=== PATIENT | male | born 1995 | race Caucasian/White ===

== ENCOUNTER 2024-08-15 09:15 | Emergency (ER) | payer OTHER, SELFPAY ==
[2024-08-15 09:15] VITALS: BP 139/86; PULSE 95; RESP 16; TEMP 36.7; O2SAT 100; BMI 25.9
--- NOTE | 2024-08-15 09:43 | EX.ED.VIS.EY ---
HPI History of Present Illness Chief Complaint: Eye Problem Informant: patient Onset/Context/Timing Location: Bilateral Eyes Onset: Today Context: Sudden Onset Timing: Continuous Current Severity: Mild Maximum Severity: Mild Associated Symptoms Associated Symptoms - Eyes: Burning History of injury: Yes and Chemical exposure Visual correction: Glasses and Corrective contact lenses Narrative Narrative: 29-year-old male no stated past medical history. No prior eye surgery. He wears contact lenses and glasses. Today he got cleaning chemicals in his eyes. This occurred about 2 hours ago. He washed them out well and immediately took out his contacts. Says he can see fine there are just injected in some discomfort. No prior eye surgery or history Prior similar symptoms: No Recent Illness/Hospitalization: No PFSH PFSH Medical History no medical history no medical history Home Medications ?Medication ?Instructions ?Recorded ?Last Taken ?Type No Known/Unobtainable [No Known 05/16/14 Unknown History Home Medications] Allergy/AdvReac Type Severity Reaction Status Date / Time No Known Allergies Allergy Verified 08/15/24 09:17 Family History no significant family his Surgical History no surgical history no surgical history Social History Smoking Status: Never smoker ROS ROS ED ROS Narrative Denies recent illness. Constitutional Constitutional ED: Denies fever(s) Eyes Eyes: Denies blurry vision, change in vision or diplopia ENT ENT ED: Denies ear pain Cardiovascular Cardiovascular: Denies chest pain Respiratory/Chest Respiratory/Chest: Denies cough or dyspnea Gastrointestinal Gastrointestinal: Denies abdominal pain Genitourinary Genitourinary ED: Denies dysuria or hematuria Musculoskeletal Musculoskeletal: Denies arthralgias Integumentary Denies abscess Neurologic Neurologic: Denies headache(s) Psychiatric Psychiatric: Denies anxiety Endocrine Endocrinology: Denies polydipsia Hematologic/Lymphatic Hematologic/Lymphatic: Denies easy bleeding Allergic/Immunologic Allergic/Immunologic ED: Denies mouth swelling or tongue swelling EXAM Physical Exam Narrative Exam Narrative: 29-year-old male no acute distress sitting upright in bed. Vital signs stable afebrile. H EENT exam pupils round reactive light. Eyes are watering bilaterally. Injected and red. No discharge. Patient are motions are intact. No facial trauma. Lungs clear. Heart regular rhythm. Abdomen soft. Otherwise exam unremarkable. Const Vital Signs: 08/15/24 09:15 Temperature 98.1 F Temperature Source Temporal Pulse Rate 95 Respiratory Rate 16 Blood Pressure 139/86 H Blood Pressure Mean 103 Pulse Ox 100 Oxygen Delivery Method Room Air Positive well nourished and well developed; Negative for obese, cachectic, contractures or unkempt General Appearance ED: well developed and NAD; Negative for unkempt, cachectic or contractures Nutritional Appearance: Negative for cachectic or obese HEENT atraumatic; Negative for trauma or tenderness Neck no lymphadenopathy, supple and no JVD Resp normal respiratory effort, no retractions, no use of accessory muscles and clear to auscultation bilaterally Cardio regular rate, regular rhythm, S1 normal heart sound, S2 normal heart sound and no murmurs GI non-tender, non-distended and no masses Palpation: soft Extremity normal to inspection Neuro oriented x3, CN's II-XII intact bilaterally and moves all extremities Sensorium / Orientation: alert, oriented to person, oriented to place and oriented to time Motor Exam: strength 5/5 throughout Psych Appearance: Negative for unkempt Mood & Affect: Negative for depressed, anxious or tearful Skin no wounds Lesions: no lesions Rashes: no rashes MDM MDM MDM Narrative Medical decision making narrative: 29-year-old male with chemical exposure both eyes that he rinsed out already. Eyes will be irrigated. Will be discharged home with ophthalmology follow-up. History & Record Review Discussion w/independent historian: Patient Discharge Plan Triage Chief Complaint: Eye Problem ED Provider: Roque Gonzales Dx/Rx/DC Orders Clinical Impression: Acute chemical conjunctivitis of both eyes Instructions: ED Eye Exposure, Chemical Prescriptions: No Action No Known Home Medications Primary Care Provider: Jesus Melchor Referrals: Dennis Cano MD [Med Staff - Active Staff] - As Needed Jesus Melchor MD [Primary Care Provider] - Activity Restrictions/Additional Instructions: Rinse your eyes out again later today with water. Do not rub your eyes. Do not wear your contacts for today or tomorrow. Follow-up with eye doctor as needed. Print Language: [place]ese Disposition Disposition: Home, Self Care
== END 2024-08-15 10:52 | disposition home or self-care (01) ==
LOC: ED 10:04
PROVIDERS: Emergency Provider Emergency Medicine; Visit Provider Emergency Medicine
DX: H10.213 Acute toxic conjunctivitis, bilateral (principal); Z77.098 Contact with and (suspected) exposure to other hazardous, chiefly nonmedicinal, chemicals
CPT/HCPCS: 99283

== ENCOUNTER 2025-01-25 21:09 | Emergency (ER) | payer OTHER, SELFPAY ==
[2025-01-25 21:10] VITALS: BP 121/79; PULSE 107; RESP 17; TEMP 36.1; O2SAT 100; BMI 29.0
--- NOTE | 2025-01-25 21:20 | RAD_ITS ---
PROCEDURE: KNEE 4 OR MORE VIEWS 01/25/2025 REASON FOR EXAM: PAIN TECHNIQUE: 4 views of the left knee COMPARISON: None FINDINGS: Bones: No fracture. No suspicious bone lesion. Joints: Normal alignment. Mild degenerative changes. Effusion: No effusion. Soft tissues: Soft tissues are unremarkable. Other: RAD/Knee 4 or More Views IMPRESSION: NO EFFUSION ACUTE FRACTURE OR DISLOCATION. Reading Location: [facility]
--- NOTE | 2025-01-25 22:11 | EDS_ITS ---
HPI History of Present Illness Chief Complaint: Lower Extremity Injury Narrative Narrative: 30-year-old male who denies significant past medical history presents with injury to his left knee that he sustained a few hours ago. He states he was playing basketball, collided with another player, and fell. He fell with his left knee/lower leg behind him and the weight of his body put strain on his knee joint. May have twisted some. He was able to stand afterwards and states that it felt okay, but then he started having more pain diffusely then behind the lateral aspect of his left knee. He denies hitting his head or loss of consciousness. No other injury. PFSH PFSH Home Medications ?Medication ?Instructions ?Recorded ?Last Taken ?Type No Known/Unobtainable [No Known 4 Unknown History Home Medications] Allergy/AdvReac Type Severity Reaction Status Date / Time No Known Allergies Allergy Verified 01/25/25 21:10 Social History Smoking Status: Never smoker ROS ROS ED ROS Narrative Review of systems, focused, positive for diffuse left knee pain and pain in the left posterior knee worse with movement and palpation. Left knee feels somewhat stiff and subjectively swollen. EXAM Physical Exam Narrative Exam Narrative: GCS 15. ABCs intact. Focused examination of the left knee shows that he can lift his leg straight off the bed without difficulty. He is neurovascular tact distally. Flexion extension of the left knee intact. There is mild tenderness to palpation along the left lateral biceps tendon/muscle. No crepitance. Const Vital Signs: 01/25/25 21:10 Temperature 97 F L Temperature Source Temporal Pulse Rate 107 H Respiratory Rate 17 Blood Pressure 121/79 H Blood Pressure Mean 93 Pulse Ox 100 Oxygen Delivery Method Room Air MDM MDM MDM Narrative Medical decision making narrative: Differential diagnosis includes but not limited to left knee sprain versus strain versus hamstring/tendon injury versus fracture versus internal derangement. Patient does not have any tenderness along the meniscal lines. There is no instability of the knee noted on examination. X-rays were obtained per protocol and interpreted by myself independently of the left knee. There is no effusion or fracture. No evidence of dislocation. I reviewed the radiology report which confirms my independent interpretation as well. At this point in time, I do feel he probably has more of a hamstring strain. He will be placed in an Grabiel wrap. He declined any oral analgesics here in the emergency department. He was given an ice pack for comfort. At this point in time, he was referred to orthopedics to follow-up with in 1 week if not improving. Return instructions to the emergency department were reviewed. Disposition is discharged home in stable condition. Radiography Diagnostic Testing: Clinical Impression(s) from Imaging Studies Knee X-Ray 01/25/25 21:20 IMPRESSION: NO EFFUSION ACUTE FRACTURE OR DISLOCATION. Reading Location: [facility] Discharge Plan Triage Chief Complaint: Lower Extremity Injury ED Provider: Arnel De León Dx/Rx/DC Orders Clinical Impression: Injury of knee, left, Left hamstring muscle strain Instructions: Knee Pain, ED Bandage Elastic Wrap, ED Knee Sprain Prescriptions: No Action No Known Home Medications Primary Care Provider: Care Physician,No Primary Referrals: Indra Mooney MD [Med Staff - Active Staff] - 1 Week if not improving Care Physician,No Primary [Primary Care Provider] - Activity Restrictions/Additional Instructions: Use Grabiel wrap for support. Continue ice and elevation at home. Take Tylenol or ibuprofen as needed for pain. Follow-up with orthopedics in 1 week if not improving. Return with increased pain, new or worsening symptoms. Print Language: [place] Disposition Disposition: Home, Self Care
== END 2025-01-25 22:37 | disposition home or self-care (01) ==
PROVIDERS: Emergency Provider Emergency Medicine; Visit Provider Emergency Medicine
DX: S76.312A Strain of muscle, fascia and tendon of the posterior muscle group at thigh level, left thigh, initial encounter (principal); Y93.67 Activity, basketball; Y92.89 Other specified places as the place of occurrence of the external cause; W03.XXXA Other fall on same level due to collision with another person, initial encounter
CPT/HCPCS: 73564; 99283

== ENCOUNTER → 2025-03-17 | Outpatient (CLI) | payer OTHER, SELFPAY ==
--- OUTSIDE RECORDS SUMMARY | 2025-03-17 08:42 | XMS RPT_ITS | CCD ---
Author Organization [facility] Care Team Providers Care Contour Stitcher Name Role Phone SEAN SWAN Unavailable Unavailable SEAN SWAN Unavailable Unavailable Unavailable Primary Care Provider Unavailabl e Unavailable Primary Care Provider Unavailabl e Care Physician, No Primary Primary Care Provider Unavailable Arnel De León MD Emergency Provider Arnel De León Attending Unavailable Care Physician, No Primary Primary Care Unava ilable Roque Gonzales Attending Unavailable Care Physician, No Primary Primary Care Unava ilable Indra Mooney Attending Unavailable Care Physician, No Primary Primary Care Unava ilable Care Physician, No Primary Referring Unava ilable YAJAIRA ARNDT Attending Unavailable DINA ROLLINS Attending Unavailable THIAGO LANGE Referring Unavailable DINA ROLLINS Referring Unavailable Medications Current Medications Medication Drug Class(es) Dates Sig (Normalized) Sig (Original) doxycycline monohydrate 100 mg oral capsule (2 sources) Tetracycline-cla ss Drug Start: 06-08-2024 End: 06-15-2024 take 1 capsule by mouth twice daily doxycycline monohydrate (MONODOX) 100 mg capsule Take 1 capsule by mouth two times a day for 7 days. 14 capsule 06/08/2024 06/15/2024 Active Multivitamin preparation (8 sources) take 1 tablet by mouth once daily MULTIVITAMIN (DAILY VITAMIN ORAL) Take 1 tablet by mouth once daily. Active take 1 tablet by mouth once juancarlos y MULTIVITAMIN (DAILY VITAMIN ORAL) Take 1 tablet by mouth once daily. 0 Active Comment on above: Take 1 tablet by tyree once daily. nystatin 100 unt/mg topical powder (3 sources) Polyene Antifungal Start: 08-14-2024 nystatin (NYSTOP) powder Indications: Scrotal irritation Apply to groin daily as needed. 15 g 08/14/2024 Active Completed/Discontinued Medications Medication Drug Class(es) Dates Sig (Normalized) Sig (Original) brompheniramine maleate 0.4 mg/ml / dextromethorphan hydrobromide 2 mg/ml / pseudoephedrine hydrochloride 6 mg/ml oral solution (2 sources) alpha-Adrenergic Agonist, Uncompetitive I-wcxelv-U-aspartat e Receptor Antagonist, Sigma-1 Agonist Start: 11-19-2018 End: 06-07-2024 take 10 mL by mouth every six hours as needed Brompheniramine-P seudoeph-DM (BROMFED DM) 2-30-10 mg/5 mL syrup Take 10 mL by mouth four times daily as needed. 200 mL 11/19/2018 06/07/2024 Discontinued Comment on above: Take 10 mL by mouth four times daily as needed. omeprazole 40 mg delayed release oral capsule (10 sources) Proton Pump Inhibitor Start: 08-26-2017 End: 06-07-2024 take 1 capsule by mouth once daily Omeprazole 40 mg capsule Indications: Epigastric pain Take 1 capsule by mouth once daily. On empty stomach 30 capsule 2 08/26/2017 06/07/2024 Discontinued take 1 capsule by mouth once edmar ly omeprazole (PRILOSEC) 20 mg capsule Take 20 mg by mouth once daily. Active Comment on above: Take 20 mg by mouth once daily. Take 1 capsule by mo ut once daily. On empty stomach Problems Active Problems Problem Classification Problem Date Documented Da te Episodic/Chronic Abdominal pain (1 source) Epigastric pain; Translations: [Epigastric pain] Onset: 10-18-2018 Episodic Other connective tissue disease (1 source) Myalgia of pelvic floor; Translations: [Myalgia, other site] 08-14-2024 Episodic Other infections; including parasitic (2 sources) History of chlamydial infection; Translations: [Personal history of other infectious and parasitic diseases] 06-25-2024 Episodic Other injuries and conditions due to external causes (1 source) Injury of left knee; Translations: [Unspecified injury of left lower leg, initial encounter] 01-25-2025 Episodic Other injuries and conditions due to external causes (1 source) Unspecified injury of left lower leg, initial encounter; Translations: [Unspecified injury of left lower leg, initial encounter] Onset: 01-29-2025 Episodic Other male genital disorders (2 sources) Irritation of penis; Translations: [Other specified disorders of penis] 06-25-2024 Chronic Other male genital disorders (1 source) Other specified disorders of penis; Translations: [Penile irritation] Onset: 08-14-2024 Chronic Other male genital disorders (1 source) Disorder of male genital organ; Translations: [Other specified disorders of the male genital organs] 08-14-2024 Episodic Other upper respiratory infections (1 source) Sore throat symptom; Translations: [Acute pharyngitis, unspecified] Episodic Residual codes; unclassified (1 source) Procedure not done; Translations: [Procedure and treatment not carried out, unspecified reason] 08-15-2024 Episodic Spondylosis; intervertebral disc disorders; other back problems (1 source) Acute low back pain; Translations: [Acute midline low back pain without sciatica] 06-07-2024 Episodic Sprains and strains (2 sources) Strain of muscle, fascia and tendon of the posterior muscle group at thigh level, left thigh, initial encounter; Translations: [Strain of left hamstring muscle] Onset: 01-30-2025 01-25-2025 Episodic Viral infection (1 source) Zoster without complications; Translations: [Herpes zoster without complication] Onset: 02-28-2025 Episodic Past or Other Problems Problem Classification Problem Date Documented Date Episodic/Chronic Genitourinary symptoms and ill-defined conditions (5 sources) Dysuria; Translations: [Painful micturition, unspecified] Onset: 08-14-2024 06-07-2024 Episodic Inflammation; infection of eye (except that caused by tuberculosis or sexually transmitteddisease) (2 sources) Acute conjunctivitis of bilateral eyes caused by chemical substance; Translations: [Acute toxic conjunctivitis, bilateral] Onset: 09-06-2024 08-23-2024 Episodic Other infections; including parasitic (1 source) Personal history of other infectious and parasitic diseases; Translations: [H/O chlamydia infection] Onset: 08-14-2024 Episodic Results Test Name Value Interpretation Reference Range Suzi Gar 02-28-2025 CNOV Office Visit ([facility]ALK[facility] ) BRANDON JAMIL ([id number]) 1995 M Date Time Provider Department 02/28/25 8:30 AM YAJAIRA ARNDT During your visit today, we recorded the following information about you: Temperature Pulse Respiration Blood pressure 97.9 degrees 77/minute 16/minute 120/67 Yajaira Arndt PA-C 02/28/2025 9:11 AM [facility] WALK IN CLINIC SUBJECTIVE: I have reviewed and revised, as needed, all rooming documentation from today. Brandon Jamil is a 30 year old male who presents to the office today with chief complaint of rash to right upper thigh beginning 3 days ago. Patient states prior to onset of rash had some tingling sensations to the skin beginning approximately 5 days ago. Rash is raised and blistering. No fever. Had chickepox as a child Positive for: itching, redness, spreading, and pain Negative for: drainage No SOB. No tongue swelling. No trouble handling secretions. There are no exam notes on file for this visit. Allergies: ALLERGIES No Known Allergies Current Outpatient Medications Medication Sig nystatin (NYSTOP) powder Apply to groin daily as needed. omeprazole (PRILOSEC) 20 mg capsule Take 20 mg by mouth once daily. MULTIVITAMIN (DAILY VITAMIN ORAL) Take 1 tablet by mouth once daily. No current facility-administered medications for this visit. PAST MEDICAL HISTORY Diagnosis Date NEGATIVE MEDICAL HISTORY PAST SURGICAL HISTORY Procedure Laterality Date CIRCUMCISION ESOPHAGOGASTRODUODENO SCOPY TRANSORAL DIAGNOSTIC 10/18/2018 EGD Social History Tobacco Use Smoking status: Never Smokeless tobacco: Never Tobacco comments: dad outside Substance Use Topics Alcohol use: No Comment: rarely Drug use: No Immunization History Administered Date(s) Administered Haemophilus influenzae b (Hib) vaccine, unspecified formulation [birth year] 1997 chicken pox (disease) 1997 diphtheria tetanus pertussis (DTaP) vaccine, pediatric (INFANRIX) 1997 1995 1997 04/11/1998 02/16/2002 hepatitis B (HepB) vaccine, 3-dose series, age 0 yr - 19 yr (ENGERIX B-PEDS, RECOMBIVAX HB-PEDS) 1997 1997 1997 measles mumps rubella (MMR) vaccine (M-M-R II, PRIORIX) 04/11/1998 02/16/2002 poliovirus (IPV) vaccine, inactivated (IPOL) 1997 1997 04/11/1998 02/16/2002 REVIEW OF SYSTEMS: See HPI otherwise, all other reviewed and negative other than HPI. PHYSICAL EXAMINATION: BP 120/67 Pulse 77 Temp 97.9 Resp 16 SpO2 98% General appearance: Well appearing, alert, in no acute distress, well-hydrated, well nourished. Skin: Skin: vesicles on an erythematous base clustered on right upper thigh in a dermatomal distribution Lungs: Unlabored on room air ASSESSMENT/PLAN: 1. Herpes zoster without complication - ICD9: 053.9, ICD10: B02.9 Valtrex prescribed Discussed contagiousness and precautions with contact around immunocompromised people, elderly, young children or females May use Motrin if needed for pain control No evidence of secondary infection or disseminated zoster Advised to return for any new or worsening symptoms Yajaira Arndt PA-C This note was partially generated using [employer] voice recognition system, any errors noted are unintentional and are due to this technology. Patient declines printed AVS. Prefers to look at AVS in [place]. History and Record Review External record(s) reviewed: prior outpatient record and prior labs/imaging. Findings from review of prior labs/imaging: Previous Renal Function Panel Reviewed No results within last 365 days. Differential Diagnoses - Shingles is more likely for the following reason(s): suggested by HANDP Disposition The patient was discharged. OTC Medications were advised: Procedures Yajaira Arndt PA-C 02/28/2025 9:10 AM Signed Shingles You have been diagnosed with shingles. Shingles is also called varicella zoster. This happens from the chicken pox virus. About 1 out of 5 of people who had chicken pox as children get shingles. The chicken pox virus can live quietly for many years in the nerves of the body. Sometimes, something will ?wake up? the virus and cause shingles. This happens in people who are healthy. However, sometimes other illnesses, stress or infections can lead to a case of shingles. Older adults or others at high risk for getting shingles should consider getting the shingles vaccine. This vaccine helps to boost the immune system and prevent the chicken pox virus from ?reawakening.? The vaccine, Zostavax? is recommended by the Centers for Disease Control and Prevention (CDC) for people over the age of 60. Even if you have had shingles before, the vaccine is helpful in preventing another outbreak. Go to the CDC website for more information. www.cdc.gov/vaccines Symptoms of shingl (more content not included)... Normal [facility] Orthopedic Visit Reporton Orthopedic Visit Report [facility] [address] [place] [address] OFFICE VISIT Date of Service: 01/29/25 MR#: [id number] Acct: [id number] Name: BRANDON JAMIL Rep #: [id number] : 1995 Provider: Dr. Indra baker MD Age/Sex: 30/M [place] [facility] Status: Signed Intake Vital Signs 01/25/25 21:10 01/29/25 13:05 Height 5 ft 9 in 5 ft 9 in Weight: 199 lb 8 oz BMI 29.5 Intake Visit Reasons: LEFT KNEE Chief Complaint: Left Knee Pain Accompanied by: Self Is patient in pain?: Yes Pain scale (1-10): 4 Allergies No Known Allergies Allergy (Verified 01/29/25 13:06) Medications ???Medication ???Instructions ???Recorded ???Confirmed ???Type No Known/Unobtainable [No Known 05/16/14 01/29/25 History Home Medications] [facility] Medical History (Updated 01/29/25 @ 13:20 by Indra Mooney MD) Effusion, left knee Social History (Updated 01/29/25 @ 13:06 by Katiuska Petty) Smoking Status: Never smoker alcohol intake: never HPI LEFT KNEE Details: This documentation accurately reflects the service provided and the decisions made by me, Dr. Indra Mooney MD 01/29/25 0988. Part of today???s visit was documented by [ ], acting as scribe. BRANDON JAMIL is a 30 year old M here today for left knee injury. Twisted playing basketball 4 days ago. contact injury. 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 twisted the knee. immedi ate swelling. no pop but hyper flexion and valgus force. no prior injury or surgery. got crutches. per ED 30-year-old male who denies significant past medical history presents with injury to his left knee that he sustained a few hours ago. He states he was playing basketball, collided with another player, and fell. He fell with his left knee/lower leg behind him and the weight of his body put strain on his knee joint. May have twisted some. He was able to stand afterwards and states that it felt okay, but then he started having more pain diffusely then behind the lateral aspect of his left knee. He denies hitting his head or loss of consciousness. No other injury. Supplemental Info [facility] Imaging Services [address] [place] [address] Knee 4 or More Views MR#: [id number] Acct: [id number] Name: BRANDON JAMIL QUAN JOSE Rep #: [id number] : 1995 M 30 From: Delmar Fritz DO PCP: Care Physician,No Primary Status: PRE ER Study: Knee 4 or More Views Date of Exam: 01/25/25 Exam# [id number] Ordering Dr: Provider,Ed P. PROCEDURE: KNEE 4 OR MORE VIEWS 01/25/2025 REASON FOR EXAM: PAIN TECHNIQUE: 4 views of the left knee COMPARISON: None FINDINGS: Bones: No fracture. No suspicious bone lesion. Joints: Normal alignment. Mild degenerative changes. Effusion: No effusion. Soft tissues: Soft tissues are unremarkable. Other: RAD/Knee 4 or More Views IMPRESSION: NO EFFUSION ACUTE FRACTURE OR DISLOCATION. Reading Location: [facility] I independently reviewed the imaging. Concur with radiologist report. Coding Level of Care Code Off vis,new,level 4 Diagnoses Injury of knee, left S89.92XA Effusion, left knee M25.462 Assessment and Plan Assessment and Plan (1) Injury of knee, left: Status: Acute Plan: BRANDON JAMIL is a 30 year old M here today for left knee injury. This is a severe twisting injury with hyperflexion and valgus pressure on the knee with poor endpoint with ACL stress testing and so I am quite concerned for an ACL tear or medial meniscus injury. In the meantime rest ice anti- inflammatories gentle range of motion no pivoting or twisting I wrote the patient a work note and I will also order an urgent MRI to evaluate for intra-articular damage to the left knee. Follow-up 1 to 2 days after the test the patient understands no further questions or concerns. (2) Effusion, left knee: Status: Acute Orders: Orders Lower Ext Joint Only (Routine) Today S89.92XA - Unspecified injury of left lower leg, initial encounter Ortho Exam General General: Yes no acute distress Neurologic: Yes alert and Yes oriented x3 Psychologic: Yes reasonable and appropriate Right Knee Patella Translation: 2 Left Knee Skin/Wound: Yes CDI, No ecchymosis, No erythema and Yes swelling 1+: Effusion Examination: Yes med jt line tenderness, No Lat jt line tenderness, No TTP inf pole patella, No Crepitus, Yes Pain with flexion, Yes Geovanna's Test, No TTP Patellar tendon, No TTP Tibial tubercle, No TTP Pes Anserine and No Illiotibia (more content not included)... Normal [facility] Emergency Department Summary on 01-25-2025 Emergency Department Summary [facility] Medical Records Department [address] [place] [address] Emergency Department Summary 01/25/25 MR#: [id number] Acct: [id number] Name: BRANDON JAMIL Rep #: [id number] : 1995 30 From: Arnel De León MD PCP: Care Physician,No Primary Status:REG ER Location: ED HPI History of Present Illness Chief Complaint: Lower Extremity Injury Narrative Narrative: 30-year-old male who denies significant past medical history presents with injury to his left knee that he sustained a few hours ago. He states he was playing basketball, collided with another pl jacob, and fell. He fell with his left knee/lower leg behind him and the weight of his body put strain on his knee joint. May have twisted some. He was able to stand afterwards and states that it felt okay, but then he started having more pain diffusely then behind the lateral aspect of his left knee. He denies hitting his head or loss of consciousness. No other injury. PFSH PFSH Home Medications ???Medication ???Instructions ???Recorded ???Last Taken ???Type No Known/Unobtainable [No Known 05/16/14 Unknown History Home Medications] Allergy/AdvReac Type Severity Reaction Status Date / Time No Known Allergies Allergy Verified 01/25/25 21:10 Social History Smoking Status: Never smoker ROS ROS ED ROS Narrative Review of systems, focused, positive for diffuse left knee pain and pain in the left posterior knee worse with movement and palpation. Left knee feels somewhat stiff and subjectively swollen. EXAM Physical Exam Narrative Exam Narrative: GCS 15. ABCs intact. Focused examination of the left knee shows that he can lift his leg straight off the bed without difficulty. He is neurovascular tact distally. Flexion extension of the left knee intact. There is mild tenderness to palpation along the left lateral biceps tendon/muscle. No crepitance. Const Vital Signs: 01/25/25 21:10 Temperature 97 F L Temperature Source Temporal Pulse Rate 107 H Respiratory Rate 17 Blood Pressure 121/79 H Blood Pressure Mean 93 Pulse Ox 100 Oxygen Delivery Method Room Air MDM MDM MDM Narrative Medical decision making narrative: Differential diagnosis includes but not limited to left knee sprain versus strain versus hamstring/tendon injury versus fracture versus internal derangement. Patient does not have any tenderness along the meniscal lines. There is no instability of the knee noted on examination. X- rays were obtained per protocol and interpreted by myself independently of the left knee. There is no effusion or fracture. No evidence of dislocation. I reviewed the radiology report which confirms my independent interpretation as well. At this point in time, I do feel he probably has more of a hamstring strain. He will be placed in an Grabiel wrap. He declined any oral analgesics here in the emergency department. He was given an ice pack for comfort. At this point in time, he was referred to orthopedics to follow-up with in 1 week if not improving. Return instructions to the emergency department were reviewed. Disposition is discharged home in stable condition. Radiography Diagnostic Testing: Clinical Impression(s) from Imaging Studies Knee X-Ray 01/25/25 21:20 IMPRESSION: NO EFFUSION ACUTE FRACTURE OR DISLOCATION. Reading Location: [facility] Discharge Plan Triage Chief Complaint: Lower Extremity Injury ED Provider: Arnel De León Dx/Rx/DC Orders Clinical Impression: Injury of knee, left, Left hamstring muscle strain Instructions: Knee Pain, ED Bandage Elastic Wrap, ED Knee Sprain Prescriptions: No Action No Known Home Medications Primary Care Provider: Care Physician,No Primary Referrals: Indra Mooney MD [Med Staff - Active Staff] - 1 Week if not improving Care Physician,No Primary [Primary Care Provider] - Activity Restrictions/Addition al Instructions: Use Grabiel wrap for support. Continue ice and elevation at home. Take Tylenol or ibuprofen as needed for pain. Follow-up with orthopedics in 1 week if not improving. Return with increased pain, new or worsening symptoms. Print Language: Bahamian Disposition Disposition: Home, Self Care What to do if you have Problems For any increased pain, shortness of breath, bleeding, nausea or vomiting, chest pain, or any unexpected problems, contact your Primary Care Provider. Call [facility] ([phone]) or report to the closest Emergency Room. Call 911 if necessary. 01/25/252214 Cosigner Signature (if applicable): CC: No Primary Care Physician Signed Normal [facility] Knee 4 or More Viewson 01-25 Knee 4 or More Views [facility] Imaging Services [address] [place] [address] Knee 4 or More Views MR#: [id number] Acct: [id number] Name: BRANDON JAMIL Rep #: [id number] : 1995 M 30 From: Delmar Fritz DO PCP: Care Physician,No Primary Status: PRE ER Study: Knee 4 or More Views Date of Exam: 01/25/25 Exam# [id number] Ordering Dr: Provider,Ed P. PROCEDURE: KNEE 4 OR MORE VIEWS 01/25/2025 REASON FOR EXAM: PAIN TECHNIQUE: 4 views of the left knee COMPARISON: None FINDINGS: Bones: No fracture. No suspicious bone lesion. Joints: Normal alignment. Mild degenerative changes. Effusion: No effusion. Soft tissues: Soft tissues are unremarkable. Other: RAD/Knee 4 or More Views IMPRESSION: NO EFFUSION ACUTE FRACTURE OR DISLOCATION. Reading Location: [facility] CC: ED PHYSICIAN PROVIDER; No Primary Care Physician Manager Stone: Signed Normal [facility] CNOVon 08-15-2024 CNOV Office Visit ([facility] ) BRANDON JAMIL ([id number]) 1995 M Date Time Provider Department 08/15/24 9:00 AM DENNIS CASTLE [facility] During your visit today, we recorded the following information about you: Dennis Castle APRN.CNP 08/15/2024 9:39 AM Signed Nontoxic-appearing male presents urgent care chief complaint chemical burn. Patient states splashed a unknown chemical in his eye at work. Has had significant discomfort and redness. On examination patient had significant redness. With mechanism of injury recommended patient be emergently seen the ED for further evaluation care. Will be sent [facility]. Dennis Castle APRN.MAGAZINE JOURNALIST Allergies As of Date: 08/15/2024 (No Known Allergies) Date Reviewed: 08/14/2024 Reviewed by: Marissa Yung CT - Fully Assessed Primary Visit Diagnosis:Procedure not carried out [Z53.9] Prescriptions as of 08/15/2024 - nystatin (NYSTOP) powder Apply to groin daily as needed. - omeprazole (PRILOSEC) 20 mg capsule Take 20 mg by mouth once daily. - MULTIVITAMIN (DAILY VITAMIN ORAL) Take 1 tablet by mouth once daily. Meds Comments as of 11/14/2016: Pt stating is taking vitamin C Problem List As Of Date: 08/15/2024 (None) Encounter Status:Closed by DENNIS CASTLE on 08/15/24 Normal [facility] Emergency Department Summary on 08-15-2024 Emergency Department Summary [facility] Medical Records Department [address] [place] [address] Emergency Department Summary 08/15/24 MR#: [id number] Acct: [id number] Name: BRANDON JAMIL Rep #: [id number] : 1995 29 From: Roque Gonzales MD PCP: Care Physician,No Primary Status:DEP ER Location: ED HPI History of Present Illness Chief Complaint: Eye Problem Informant: patient Onset/Context/Timing Location: Bilateral Eyes Onset: Today Context: Sudden Onset Timing: Continuous Current Severity: Mild Maximum Severity: Mild Associated Symptoms Associated Symptoms - Eyes: Burning History of injury: Yes and Chemical exposure Visual correction: Glasses and Corrective contact lenses Narrative Narrative: 29-year-old male no stated past medical history. No prior eye surgery. He wears contact lenses and glasses. Today he got cleaning chemicals in his eyes. This occurred about 2 hours ago. He washed them out well and immediately took out his contacts. Says he can see fine there are just injected in some discomfort. No prior eye surgery or history Prior similar symptoms: No Recent Illness/Hospitalizati on: No PFSH PFSH Medical History no medical history no medical history Home Medications ???Medication ???Instructions ???Recorded ???Last Taken ???Type No Known/Unobtainable [No Known 05/16/14 Unknown History Home Medications] Allergy/AdvReac Type Severity Reaction Status Date / Time No Known Allergies Allergy Verified 08/15/24 09:17 Family History no significant family his Surgical History no surgical history no surgical history Social History Smoking Status: Never smoker ROS ROS ED ROS Narrative Denies recent illness. Constitutional Constitutional ED: Denies fever(s) Eyes Eyes: Denies blurry vision, change in vision or diplopia ENT ENT ED: Denies ear pain Cardiovascular Cardiovascular: Denies chest pain Respiratory/Chest Respiratory/Chest: Denies cough or dyspnea Gastrointestinal Gastrointestinal: Denies abdominal pain Genitourinary Genitourinary ED: Denies dysuria or hematuria Musculoskeletal Musculoskeletal: Denies arthralgias Integumentary Denies abscess Neurologic Neurologic: Denies headache(s) Psychiatric Psychiatric: Denies anxiety Endocrine Endocrinology: Denies polydipsia Hematologic/Lymphatic Hematologic/Lymphatic : Denies easy bleeding Allergic/Immunologic Allergic/Immunologic ED: Denies mouth swelling or tongue swelling EXAM Physical Exam Narrative Exam Narrative: 29-year-old male no acute distress sitting upright in bed. Vital signs stable afebrile. H EENT exam pupils round reactive light. Eyes are watering bilaterally. Injected and red. No discharge. Patient are motions are intact. No facial trauma. Lungs clear. Heart regular rhythm. Abdomen soft. Otherwise exam unremarkable. Const Vital Signs: 08/15/24 09:15 Temperature 98.1 F Temperature Source Temporal Pulse Rate 95 Respiratory Rate 16 Blood Pressure 139/86 H Blood Pressure Mean 103 Pulse Ox 100 Oxygen Delivery Method Room Air Positive well nourished and well developed; Negative for obese, cachectic, contractures or unkempt General Appearance ED: well developed and NAD; Negative for unkempt, cachectic or contractures Nutritional Appearance: Negative for cachectic or obese HEENT atraumatic; Negative for trauma or tenderness Neck no lymphadenopathy, supple and no JVD Resp normal respiratory effort, no retractions, no use of accessory muscles and clear to auscultation bilaterally Cardio regular rate, regular rhythm, S1 normal heart sound, S2 normal heart sound and no murmurs GI non-tender, non-distended and no masses Palpation: soft Extremity normal to inspection Neuro oriented x3, CN's II-XII intact bilaterally and moves all extremities Sensorium / Orientation: alert, oriented to person, oriented to place and oriented to time Motor Exam: strength 5/5 throughout Psych Appearance: Negative for unkempt Mood Affect: Negative for depressed, anxious or tearful Skin no wounds Lesions: no lesions Rashes: no rashes MDM MDM MDM Narrative Medical decision making narrative: 29-year-old male with chemical exposure both eyes that he rinsed out already. Eyes will be irrigated. Will be discharged home with ophthalmology follow-up. History Record Review Discussion w/independent historian: Patient Discharge Plan Triage Chief Complaint: Eye Problem ED Provider: Roque Gonzales Dx/Rx/DC Orders Clinical Impression: Acute chemical conjunctivitis of both eyes Instructions: ED Eye Exposure, Chemical Prescriptions: No Action No Known Home Medications Primary Care Provider: Jesus Melchor (more content not included)... Normal [facility] CNOVon 08-14-2024 CNOV Office Visit ([facility] ) BRANDON JAMIL ([id number]) 1995 M Date Time Provider Department 08/14/24 3:00 PM DINA ROLLINS During your visit today, we recorded the following information about you: Weight Height 81.4 kg 1.749 m Dina Rollins APRN.CNP 08/21/2024 7:59 PM Addendum [facility] M[facility] PATIENT - HISTORY AND PHYSICAL EXAMINATION PATIENT: Brandon Jamil Patient has been identified by name and date of : Yes PCP: No primary care provider on file. Thiago Lange CNP- referring provider CHIEF COMPLAINT: urgency concerns. Penile irritation. HISTORY OF PRESENT ILLNESS: Brandon Jamil is a 29 year old male presenting today for: urinary frequency/ penile irritation. Pt was seen by family medicine on 06/25/24 for these concerns. GC, trich, UA, culture were negative. Was treated for Chlamydia in the recent past and treated with Doxy x 7 days. Pt c/o itching/ burning to the urethra X 1 month. He also reports redness and tenderness to his scrotal skin. No risk for new STDs. No penile drainage. Review: Daytime frequency: Q 2-3 Hrs; Night time frequency: 0-1X Irritative (STORAGE) symptoms: - Bothersome frequency: No - Urgency: No - Incontinence: Stress No / Urge No Obstructive symptoms: - Force of stream Good - Hesitancy No - Intermittency: No - Straining: No - Incomplete emptying: No - Double voiding: No - Postvoid dribbling: Yes Current Urinary Status: - Indwelling catheter: No - Current intermittent Catheterization: No - Gross hematuria: No - UTI: No Denies fever, chills, dysuria. Pelvic pain review: Pain with erections: none Pain with ejaculation: yes Perineal pain: yes Groin pain: intermittent lower abd pain. Resolved. Scrotal pain: yes, discomfort. Lower back pain: no Constipation: sometimes. Heavy lifting: none REVIEW OF SYSTEMS: relevant updates noted in HPI PAST MEDICAL HISTORY: PAST MEDICAL HISTORY Diagnosis Date NEGATIVE MEDICAL HISTORY PAST SURGICAL HISTORY Procedure Laterality Date CIRCUMCISION ESOPHAGOGASTRODUODENO SCOPY TRANSORAL DIAGNOSTIC 10/18/2018 EGD Social History Tobacco Use Smoking status: Never Smokeless tobacco: Never Tobacco comments: dad outside Substance Use Topics Alcohol use: No Comment: rarely Drug use: No FAMILY HISTORY Problem Relation Age of Onset other (Kidney problems) Father Hypertension Maternal Grandmother other (Kidney problems) Maternal Grandmother Heart Maternal Grandfather Hypertension Maternal Uncle MEDICATIONS: reviewed and confirmed with patient OFFICE DATA: labs reviewed 08/14/24 POST-VOID RESIDUAL BLADDER VOLUME: 0 cc URINALYSIS: + blood OTHER DATA: Labs reviewed No results found for: PSA No results found for: TESTOST, TESTFREE No results found for: HBA1C No results found for: TSH Creatinine Date Value Ref Range Status 08/26/2017 0.96 0.73 - 1.22 mg/dL Final PHYSICAL EXAMINATION: The sensitive examination was discussed with the Patient or Patient's Authorized Facing End Trimmer. As applicable, any other physician, advance practice provider, medical student, or other health professional student that will be observing or involved in the sensitive examination for educational or training purposes was discussed with the Patient or Authorized Facing End Trimmer. The Patient or Authorized Facing End Trimmer has agreed to proceed with the sensitive examination. (Sensitive examination includes inspection and/or palpation of the breasts, pelvis, prostate and anorectal regions) General appearance: cooperative, pleasant, no acute distress, alert and oriented, well nourished male. Neuro: normal affect, normal speech, gait is normal. Lungs/chest: no signs of respiratory distress, no audible wheezing Extremities: no edema, normal motor function. Back: no CVA tenderness Abdomen: no suprapubic distention Scrotum: non-erythematous, no lesions, no hydrocele- generalized scrotal skin. Testes: descended bilaterally, non-tender, nl size bilaterally, no intratesticular masses bilaterally Epididymes: non-tender, no masses, palpable vas bilaterally. Penis: circumcised, NL phallus, no lesions, NL meatus, no identifiable peyronie's plaque. ASSESSMENT: 1. Scrotal irritation - ICD9: 608.9, ICD10: N50.89 (primary diagnosis) 2. Penile irritation - ICD9: 607.89, ICD10: N48.89 3. Urinary frequency - ICD9: 788.41, ICD10: R35.0 4. H/O chlamydia infection - ICD9: V12.09, ICD10: Z86.19 5. Myalgia of pelvic floor - ICD9: 729.1, ICD10: M79.18 PLAN: 1. Scrotal irritation - nystatin (NYSTOP) powder; Apply to groin daily as needed. -consider derm consult. 2. Penile irritation - CONSULT TO UROLOGY - UROGENITAL UREAPLASMA AND MYCOPLASMA SPECIES BY PCR, FOR GENITAL, RECTAL, URINE SAMPLES; - SYPHILIS TREPONEMAL W/REFLEX; Fu (more content not included)... Normal [facility] HIV 1+2 Ab IA Qlon 4 HIV 1 and 2 Ab IA.rapid Nom (S/P/Bld) [facility] Comment on above: Test not indicated. HIV 1+2 Ab+HIV1 p24 Ag IA Ql Non-Reactive Nonreactive [facility] HIV immunoassay testing algorithm interpretation (S/P/Bld) [Interp] [facility] Comment on above: No evidence of HIV-1 or HIV-2 infection. Should recent infection be suspected, repeat testing may be considered 2-3 weeks after this draw. [place] Rev. Code 3701.243(E): This information has been disclosed to you from confidential records protected from disclosure by state law. You shall make no further disclosure of this information without the specific, written, and informed release of the individual to whom it pertains or as otherwise permitted by state law. A general authorization for the release of medical or other information is not sufficient for the purpose of the release of HIV test results or diagnoses. [facility] HIV 1 and 2 Ab IA.rapid Nom (S/P/Bld) Normal [facility] Comment on above: Order Comment: Speci men Type: BLOOD SPECIMENOrdering Facility: [facility] Address: [address] [place] [address] Result Comment: Test not indicated. Performed By: #### 3 1201-7, 13191-4 ####[facility] [id number] [place] [address] [place] HIV 1+2 Ab+HIV1 p24 Ag IA Ql Non-Reactive Normal Nonreactive [facility] Comment on above: Order Comment: Speci men Type: BLOOD SPECIMENOrdering Facility: [facility] Address: [address] [place] [address] Performed By: #### 3 1201-7, 53761-4 ####[facility] [id number] [place] [address] [place] HIV immunoassay testing algorithm interpretation (S/P/Bld) [Interp] Normal [facility] Comment on above: Order Comment: Speci men Type: BLOOD SPECIMENOrdering Facility: [facility] Address: [address] [place] [address] Result Comment: No e vidence of HIV-1 or HIV-2 infection. Should recent infection be suspected, repeat testing may be considered 2-3 weeks after this draw. [place] Rev. Code 3701.243(E): This information has been disclosed to you from confidential records protected from disclosure by state law. ???You shall make no further disclosure of this information without the specific, written, and informed release of the individual to whom it pertains or as otherwise permitted by state law. A general authorization for the release of medical or other information is not sufficient for the purpose of the release of HIV test results or diagnoses. Performed By: #### 3 1201-7, 67252-6 ####[facility] [id number] [place] [address] [place] Reagin and Treponema pallidu m IgG and IgM [Interp]on 08-14-2024 T. pallidum IgG+IgM IA Ql (S) Non-Reactive Nonreactive [facility] T. pallidum IgG+IgM IA Ql (S) Non-Reactive Normal Nonreactive [facility] Comment on above: Order Comment: Speci men Type: BLOOD SPECIMENOrdering Facility: [facility] Address: [address] [place] [address] Performed By: #### 3 1201-7, 27570-7 ####[facility] [id number] [place] [id number] [place] Reagin+T pallidum IgG+IgM Se rPl-Impon 08-14-2024 Reagin and Treponema pallidum IgG and IgM [Interp] Cannot exclude recent Treponemal infection if specimen collected within 7-10 days after appearance of suspect lesions or 2-3 weeks after an exposure. Clinical correlation is required. Normal [facility] Comment on above: Order Comment: Speci men Type: BLOOD SPECIMENOrdering Facility: [facility] Address: [address] [place] [address] Performed By: #### 3 1201-7, 65397-9 ####[facility] [id number] [place] [address] [place] SYPHILIS TREPONEMAL W/REFLEX on 08-14-2024 Reagin and Treponema pallidum IgG and IgM [Interp] Cannot exclude recent Treponemal infection if specimen collected within 7-10 days after appearance of suspect lesions or 2-3 weeks after an exposure. Clinical correlation is required. [facility] UA DIP, URINE (POC)on 2023 BILIRUBIN UA (POCT) Negative Negative [facility] CLARITY UA (POCT) Clear [facility] COLOR UA (POCT) Yellow [facility] GLUCOSE UA (POCT) Negative Negative mg/dL [facility] Hemoglobin Ql (U) Trace-intact Abnormal Negative [facility] Interpretation and review of laboratory results Abnormal [facility] KETONE UA (POCT) Negative Negative mg/dL [facility] LEUKOCYTES UA (POCT) Negative Negative [facility] NITRITE UA (POCT) Negative Negative [facility] PH UA (POCT) 5.5 4.5 - 8.0 [facility] Protein Ql (U) Negative Negative mg/dL [facility] SPECIFIC GRAVITY UA (POCT) >=1.030 1.005 - 1.030 [facility] UROBILINOGEN UA (POCT) 0.2 Normal E.U./dL [facility] Location:[facility], [address] , [place], [address] [facility] POINT OF CARE [facility] UROGENITAL UREAPLASMA AND MY COPLASMA SPECIES BY PCR, FOR GENITAL, RECTAL, URINE SAMPLESon 08-14-2024 M GENITALIUM PCR Not detected Normal [facility] Comment on above: Order Comment: Speci men Type: URINE SPECIMENOrdering Facility: [facility] Address: [address] [place] [address] Result Comment: INTE RPRETIVE INFORMATION: Urogenital Ureaplasma and Mycoplasma Species by PCR A negative result does not rule out the presence of PCR inhibitors in the patient specimen or test-specific nucleic acid in concentrations below the level of detection by this test. This test was developed and its performance characteristics determined by [facility]. It has not been cleared or approved by the [place] Food and Drug Administration. This test was performed in a CLIA certified laboratory and is intended for clinical purposes. Performed By: [facility] [address] [place] [address] Room Cooler Installer: Padilla Tran MD, PhD [place] Number: [id number] Performed By: #### U RMPCR ####[facility]IESCLIA [id number] [place] [address] MYCOPLAS HOMINIS PCR Not detected Normal [facility] Comment on above: Order Comment: Speci men Type: URINE SPECIMENOrdering Facility: [facility] Address: [address] [place] [address] Performed By: #### U RMPCR ####[facility] [id number] [place] [address] UR PARVUM PCR Not detected Normal [facility] Comment on above: Order Comment: Speci men Type: URINE SPECIMENOrdering Facility: [facility] Address: [address] [place] [address] Performed By: #### U RMPCR ####[facility] [id number] [place] [address] UR UREALYTICUM PCR Not detected Normal [facility] Comment on above: Order Comment: Speci men Type: URINE SPECIMENOrdering Facility: [facility] Address: [address] [place] [address] Performed By: #### U RMPCR ####[facility] [id number] [place] [address] UR/MYCO SOURCE Urine Normal [facility] Comment on above: Order Comment: Speci men Type: URINE SPECIMENOrdering Facility: [facility] Address: [address] [place] [address] Performed By: #### U RMPCR ####[facility]IES[facility]IA [id number] [place] [address] Urinalysis complete panel (U )on 08-14-2024 Bacteria LM.HPF (Urine sed) [#/Area] Negative Negative /HPF [facility] Bilirubin Ql (U) Negative Negative [facility] Clarity (Unsp spec) Clear Clear [facility] Color (U) Yellow Yellow [facility] Epithelial cells LM.HPF (Urine sed) [#/Area] None Seen /HPF [facility] Glucose Test strip (U) [Mass/Vol] Negative Negative [facility] Hemoglobin Ql (U) Negative Negative [facility] Hyaline casts (Urine sed) [#/Area] 0 /[LPF] 0 /LPF [facility] Ketones Ql (U) Negative Negative [facility] Leukocyte esterase Test strip Ql (U) Negative Negative [facility] Nitrite Ql (U) Negative Negative [facility] pH (U) 5.5 [pH] NINF - 8.5 [facility] Protein (U) [Mass/Vol] Negative Negative [facility] RBC LM.HPF (Urine sed) [#/Area] 0-2 /HPF 0-2 /HPF [facility] Specific gravity (U) [Rel density] 1.024 1.005 - 1.030 [facility] Urobilinogen Ql (U) 0.2 EU/dL 0.2-1.0 EU/dL [facility] WBC LM.HPF (Urine sed) [#/Area] 0-5 /HPF 0-5 /HPF [facility] This test was developed and its performance characteristics determined by [facility]'s [facility] Pathology and Laboratory Medicine [place] ([facility]). It has not been cleared or approved by the FDA. [facility] is regulated under CLIA as qualified to perform high-complexity testing. This test is used for clinical purposes. It should not be regarded as investigational or for research. [facility] Bacteria LM.HPF (Urine sed) [#/Area] Negative Normal Negative [facility] Comment on above: Order Comment: Speci men Type: URINE SPECIMENOrdering Facility: [facility] Address: [address] [place] [address] Performed By: #### 2 4356-8 ####[facility] [id number] [place] [address] [place] Bilirubin Ql (U) Negative Normal Negative [facility] Comment on above: Order Comment: Speci men Type: URINE SPECIMENOrdering Facility: [facility] Address: [address] [place] [address] Performed By: #### 2 4356-8 ####[facility] [id number] [place] [address] [place] Clarity (Unsp spec) Clear Normal Clear [facility] Comment on above: Order Comment: Speci men Type: URINE SPECIMENOrdering Facility: [facility] Address: [address] [place] [address] Performed By: #### 2 4356-8 ####[facility] [id number] [place] [address] [place] Color (U) Yellow Normal Yellow [facility] Comment on above: Order Comment: Speci men Type: URINE SPECIMENOrdering Facility: [facility] Address: [address] [place] [address] Performed By: #### 2 4356-8 ####[facility] [id number] [place] [address] [place] Epithelial cells LM.HPF (Urine sed) [#/Area] None Seen Normal [facility] Comment on above: Order Comment: Speci men Type: URINE SPECIMENOrdering Facility: [facility] Address: [address] [place] [address] Performed By: #### 2 4356-8 ####[facility] [id number] [place] [address] [place] Glucose Test strip (U) [Mass/Vol] Negative Normal Negative [facility] Comment on above: Order Comment: Speci men Type: URINE SPECIMENOrdering Facility: [facility] Address: [address] [place] [address] Performed By: #### 2 4356-8 ####[facility] [id number] [place] [address] [place] Hemoglobin Ql (U) Negative Normal Negative [facility] Comment on above: Order Comment: Speci men Type: URINE SPECIMENOrdering Facility: [facility] Address: [address] [place] [address] Performed By: #### 2 4356-8 ####[facility] [id number] [place] [address] [place] Hyaline casts (Urine sed) [#/Area] 0 /[LPF] Normal 0 /LPF [facility] Comment on above: Order Comment: Speci men Type: URINE SPECIMENOrdering Facility: [facility] Address: [address] [place] [address] Performed By: #### 2 4356-8 ####[facility] [id number] [place] [address] [place] Ketones Ql (U) Negative Normal Negative [facility] Comment on above: Order Comment: Speci men Type: URINE SPECIMENOrdering Facility: [facility] Address: [address] [place] [address] Performed By: #### 2 4356-8 ####[facility] [id number] [place] [address] [place] Leukocyte esterase Test strip Ql (U) Negative Normal Negative [facility] Comment on above: Order Comment: Speci men Type: URINE SPECIMENOrdering Facility: [facility] Address: [address] [place] [address] Performed By: #### 2 4356-8 ####[facility] [id number] [place] [address] [place] Nitrite Ql (U) Negative Normal Negative [facility] Comment on above: Order Comment: Speci men Type: URINE SPECIMENOrdering Facility: [facility] Address: [address] [place] [address] Performed By: #### 2 4356-8 ####[facility] [id number] [place] [address] [place] pH (U) 5.5 [pH] Normal <8.5 [facility] Comment on above: Order Comment: Speci men Type: URINE SPECIMENOrdering Facility: [facility] Address: [address] [place] [address] Performed By: #### 2 4356-8 ####[facility] [id number] [place] [address] [place] Protein (U) [Mass/Vol] Negative Normal Negative [facility] Comment on above: Order Comment: Speci men Type: URINE SPECIMENOrdering Facility: [facility] Address: [address] [place] [address] Performed By: #### 2 4356-8 ####[facility] [id number] [place] [address] [place] RBC LM.HPF (Urine sed) [#/Area] 0-2 /HPF Normal 0-2 /HPF [facility] Comment on above: Order Comment: Speci men Type: URINE SPECIMENOrdering Facility: [facility] Address: [address] [place] [address] Performed By: #### 2 4356-8 ####[facility] [id number] [place] [address] [place] Specific gravity (U) [Rel density] 1.024 Normal 1.005-1.030 [facility] Comment on above: Order Comment: Speci men Type: URINE SPECIMENOrdering Facility: [facility] Address: [address] [place] [address] Performed By: #### 2 4356-8 ####[facility] [id number] [place] [address] [place] Urobilinogen Ql (U) 0.2 EU/dL Normal 0.2-1.0 EU/dL [facility] Comment on above: Order Comment: Speci men Type: URINE SPECIMENOrdering Facility: [facility] Address: [address] [place] [address] Performed By: #### 2 4356-8 ####[facility] [id number] [place] [address] [place] WBC LM.HPF (Urine sed) [#/Area] 0-5 /HPF Normal 0-5 /HPF [facility] Comment on above: Order Comment: Speci men Type: URINE SPECIMENOrdering Facility: [facility] Address: [address] [place] [address] Performed By: #### 2 4356-8 ####[facility] [id number] [place] [address] [place] Bacteria Ur Culton 4 Bacteria identified Cx Nom (U) ORGANISM ID: 1 <10,000 CFU/ml Normal urogenital jarrell Normal [facility] Comment on above: Performed By: #### 6 30-4 ####[facility] [id number] [place] [address] [place] C. trachomatis+N. gonorrhoea e DNA THEO+probe Ql (Unsp spec)on 06-25-2024 C. trachomatis rRNA THEO+probe Ql (Unsp spec) Negative Normal Negative for Chlamydia trachomatis by amplificaton [facility] Comment on above: Order Comment: Speci men Type: URINE SPECIMENOrdering Facility: [facility] Address: [address] [place] [address] Performed By: #### 3 6902-5 ####[facility] [id number] [place] [address] [place] N. gonorrhoeae rRNA THEO+probe Ql (Unsp spec) Negative Normal Negative for Neisseria gonorrhoeae by amplification [facility] Comment on above: Order Comment: Speci men Type: URINE SPECIMENOrdering Facility: [facility] Address: [address] [place] [address] Performed By: #### 3 6902-5 ####[facility] [id number] [place] [address] [place] CNOVon 06-25-2024 CNOV Office Visit ([facility] ) BRANDON JAMIL ([id number]) 1995 M Date Time Provider Department 06/25/24 12:45 PM THIAGO LANGE [facility] During your visit today, we recorded the following information about you: Temperature Pulse Respiration Blood pressure 98.4 degrees 73/minute 16/minute 125/74 Weight 76.2 kg Thiago Lange, ANEESH.MAGAZINE JOURNALIST 06/25/2024 1:50 PM Signed Subjective Pt was seen 2.5 weeks ago at another [facility], tested positive for Chlamydia and treated with Doxy x 7 days. States dysuria resolved but all other symptoms have remained, concerned still has chlamydia. C/o urinary frequency and urgency, suprapubic pain, bilateral flank pain and penis and testicles feel uncomfortable and irritated and red x 2.5 weeks. States took all of the Doxy and partner was also treated, refrained from intercourse for > 7 days while both were treated. Partner does not have any symptoms. Denies any new partners. Denies hx of herpes. The history is provided by the patient. No language assistant was used. Review of Systems Constitutional: Negative for chills, fatigue and fever. Respiratory: Negative for shortness of breath and wheezing. Gastrointestinal: Positive for abdominal pain (suprapubic). Negative for diarrhea, nausea and vomiting. Genitourinary: Positive for flank pain (bilateral) and frequency. Negative for dysuria, genital sores, hematuria, penile discharge and urgency. Penile pain: states feels uncomfortable and irritated. Testicular pain: states feels uncomfortable and irritated. Reports hx of UTI as child. Denies hx of kidney stones. omeprazole (PRILOSEC) 20 mg capsule Take 20 mg by mouth once daily. MULTIVITAMIN (DAILY VITAMIN ORAL) Take 1 tablet by mouth once daily. ALLERGIES No Known Allergies There is no problem list on file for this patient. Physical Exam Vitals and nursing note reviewed. Constitutional: General: He is not in acute distress. Appearance: Normal appearance. He is not toxic-appearing. Cardiovascular: Rate and Rhythm: Normal rate. Pulmonary: Effort: Pulmonary effort is normal. No accessory muscle usage or respiratory distress. Abdominal: General: Bowel sounds are normal. Palpations: Abdomen is soft. Abdomen is not rigid. Tenderness: There is no abdominal tenderness. There is no right CVA tenderness, left CVA tenderness, guarding or rebound. Genitourinary: Pubic Area: No rash. Penis: No erythema, tenderness, discharge, swelling or lesions. Testes: Right: Tenderness or swelling not present. Left: Tenderness or swelling not present. Comments: No scrotal erythema noted. Pocket Setter Lockstitch for exam = [place] MA. Skin: General: Skin is warm and dry. Capillary Refill: Capillary refill takes less than 2 seconds. Neurological: Mental Status: He is alert and oriented to person, place, and time. BP 125/74 Pulse 73 Temp 36.9 ?C (98.4 ?F) (Left Tympanic) Resp 16 Wt 76.2 kg (168 lb) SpO2 98% BMI 24.81 kg/m2 ASSESSMENT/PLAN: Encounter Diagnosis ICD-10-CM 1. Urinary frequency R35.0 URINE CULTURE UA DIP, URINE (POC) GONORRHEA/CHLAMYDIA NAAT TRICHOMONAS VAGINALIS NAAT CONSULT TO UROLOGY 2. Penile irritation N48.89 CONSULT TO UROLOGY 3. H/O chlamydia infection Z86.19 CONSULT TO UROLOGY Results for orders placed or performed in visit on 06/25/24 UA DIP, URINE (POC) Result Value Ref Range GLUCOSE UA (POCT) Negative Negative mg/dL BILIRUBIN UA (POCT) Negative Negative KETONE UA (POCT) Negative Negative mg/dL SPECIFIC GRAVITY UA (POCT) 1.015 1.005 - 1.030 HEMOGLOBIN/BLOOD UA (POCT) Negative Negative PH UA (POCT) 8.5 (A) 4.5 - 8.0 PROTEIN UA (POCT) Negative Negative mg/dL UROBILINOGEN UA (POCT) 0.2 Normal E.U./dL NITRITE UA (POCT) Negative Negative LEUKOCYTES UA (POCT) Negative Negative COLOR UA (POCT) Yellow CLARITY UA (POCT) Clear - URINE CULTURE - sent to lab, will call if any changes need to be made. - GC/CHLAMYDIA/TRICH URINE - sent to lab, will call with positive results and treat as needed. - Follow up with urology in the next 1-2 days. - Push fluids - Tylenol or Motrin prn - ED for worsening symptoms - any fevers, chills, worsening flank or abdominal pain, testicular pain or swelling, nausea or vomiting. - See patient instructions for further recommendations. - Pt education along with discharge instructions given to pt - Discussed Red Flag signs and when to go to ER. - Pt agreeable with plan and verbalizes understanding. - Follow up with PCP if symptoms worsen or do not improve in the next 2-3 days. MALINDA Paiz Richelle, APRN.CNP 06/25/2024 1:33 PM Addendum - Follow up with urology in the next 1-2 days. EXPRESS [facility] PATIENT INFO CLAMYDIA AND GONORRHEA What are chlamydia and gonorrhea? - Chlamydia and gonorrhea are two different infections that you can catch during sex. They cause similar symptoms. (more content not included)... Normal [facility] TRICHOMONAS VAGINALIS NAATon 06-25-2024 T. vaginalis DNA THEO+probe Ql (Unsp spec) Negative Normal Negative for Trichomonas vaginalis by amplification [facility] Comment on above: Order Comment: Speci men Type: URINE SPECIMENOrdering Facility: [facility] Address: [address] [id number] Performed By: #### T RVAMP ####[facility] LABCLIA [id number] [facility] [id number] [id number] [place] UA DIP, URINE (POC)on 2023 BILIRUBIN UA (POCT) Negative Negative [facility] CLARITY UA (POCT) Clear [facility] COLOR UA (POCT) Yellow [facility] GLUCOSE UA (POCT) Negative Negative mg/dL [facility] Hemoglobin Ql (U) Negative Negative [facility] Interpretation and review of laboratory results Abnormal [facility] KETONE UA (POCT) Negative Negative mg/dL [facility] LEUKOCYTES UA (POCT) Negative Negative [facility] NITRITE UA (POCT) Negative Negative [facility] PH UA (POCT) 8.5 Abnormal 4.5 - 8.0 [facility] Protein Ql (U) Negative Negative mg/dL [facility] SPECIFIC GRAVITY UA (POCT) 1.015 1.005 - 1.030 [facility] UROBILINOGEN UA (POCT) 0.2 Normal E.U./dL [facility] Location:[facility], [address] [place] [address], [address] [place] [address] POINT OF CARE [facility] CNPRosalie 06-09-2024 [facility] Telephone (YANNTR) BRANDON JAMIL ([id number]) 1995 M Date Time Provider Department 06/09/24 SVETA WALKER During your visit today, we recorded the following information about you: Pratibha Mcneal LPN 06/09/2024 8:40 AM Signed ----- Message from Sveta Walker APRN.MAGAZINE JOURNALIST sent at 06/09/2024 7:11 AM EDT ----- Please advise patient the urine culture was negative. He should complete treatment for chlamydia as prescribed. Sveta Walker APRN.Pratibha Dominguez LPN 06/09/2024 9:29 AM Signed Patient given results and verbalized understanding of instructions given. Pratibha Mcneal LPN Allergies As of Date: 06/09/2024 (No Known Allergies) Date Reviewed: 06/07/2024 Reviewed by: Ifrah Darden MA - Fully Assessed Prescriptions as of 06/09/2024 - doxycycline monohydrate (MONODOX) 100 mg capsule Take 1 capsule by mouth two times a day for 7 days. - omeprazole (PRILOSEC) 20 mg capsule Take 20 mg by mouth once daily. - MULTIVITAMIN (DAILY VITAMIN ORAL) Take 1 tablet by mouth once daily. Meds Comments as of 11/14/2016: Pt stating is taking vitamin C Problem List As Of Date: 06/09/2024 (None) Encounter Status:Closed by PRATIBHA MCNEAL on 06/09/24 [facility] Myron 06-08-2024 [facility] Telephone ([facility]) BRANDON JAMIL ([id number]) 1995 M Date Time Provider Department 06/08/24 HOWARD MARTIN [facility] During your visit today, we recorded the following information about you: Howard Martin PA 06/08/2024 7:37 AM Signed Please contact patient and let him know he tested positive for chlamydia. He is negative for gonorrhea. He needs to notify all sexual partners. I have sent in doxycycline to [facility] pharmacy. Advised patient to take all this medication and finish it as prescribed. No sexual intercourse for 7 days after completing treatment. Nayan Velasquez MA 06/08/2024 8:34 AM Signed Patient notified of results, verbalized understanding of instructions given. Nayan Velasquez MA Allergies As of Date: 06/08/2024 (No Known Allergies) Date Reviewed: 06/07/2024 Reviewed by: Ifrah Darden MA - Fully Assessed Reason for Visit: Results [95] Order(s):doxycycline monohydrate (MONODOX) 100 mg capsuleTake 1 capsule by mouth two times a day for 7 days.Disp: 14 capsuleRfl: 0 Prescriptions as of 06/08/2024 - doxycycline monohydrate (MONODOX) 100 mg capsule Take 1 capsule by mouth two times a day for 7 days. - omeprazole (PRILOSEC) 20 mg capsule Take 20 mg by mouth once daily. - MULTIVITAMIN (DAILY VITAMIN ORAL) Take 1 tablet by mouth once daily. Meds Comments as of 11/14/2016: Pt stating is taking vitamin C Problem List As Of Date: 06/08/2024 (None) Prescriptions ordered this encounter Disp Refills Start End DOXYCYCLINE MONOHYDRATE 100 MG CAPSU* 14 c* 0 06/08/2024 06/15/2024 Route: ORAL Sig: Take 1 capsule by mouth two times a day for 7 days. Encounter Status:Closed by NAYAN VELASQUEZ on 06/08/24 Normal [facility] Bacteria Ur Culton Bacteria identified Cx Nom (U) CULTURE, URINE: No growth (<1,000 CFU/ml) Normal [facility] Comment on above: Performed By: #### 6 30-4 ####[facility] LABCLIA [id number] [place] [address] [place] C. trachomatis+N. gonorrhoea e DNA THEO+probe Ql (Unsp spec)on 06-07-2024 C. trachomatis rRNA THEO+probe Ql (Unsp spec) Positive Abnormal Negative for Chlamydia trachomatis by amplificaton [facility] Comment on above: Order Comment: Speci men Type: URINE SPECIMENOrdering Facility: [facility] Address: [address] [place] [address] Performed By: #### 3 6902-5 ####[facility] LABCLIA [id number] [place] [address] [place] N. gonorrhoeae rRNA THEO+probe Ql (Unsp spec) Negative Normal Negative for Neisseria gonorrhoeae by amplification [facility] Comment on above: Order Comment: Speci men Type: URINE SPECIMENOrdering Facility: [facility] Address: [address] [facility] [place] [place] [address] Performed By: #### 3 6902-5 ####[facility] LABCLIA [id number] [id number] [id number] [facility] CNOVon 06-07-2024 CNOV Office Visit (UCWSTR ) BRANDON JAMIL ([id number]) 1995 M Date Time Provider Department 06/07/24 12:45 PM AYAZ WHITEHEAD [facility] During your visit today, we recorded the following information about you: Temperature Pulse Respiration Blood pressure 97.6 degrees 98/minute 16/minute 122/64 Weight 76 kg Ayaz White[place] MD 06/07/2024 1:11 PM Signed Patient presents with: Urinary Problem: pain with urination, lower back pain x 2 days HPI: Symptoms for 2 days. Dysuria: Yes Frequency: Yes Hematuria: No Discharge: No Genital lesion: No ulcers, papules, vesicles, or rash Nausea: increased reflux symptoms Fever or chills: No Back pain: midline lumbar, crampy, no radiation Abdominal pain: No Prior UTI: believes once as a child. Currently sexually active. Personal history of kidney stones: No Family history of kidney stones: sister just had a stone MEDICATIONS: Current Outpatient Medications Medication Sig omeprazole (PRILOSEC) 20 mg capsule Take 20 mg by mouth once daily. MULTIVITAMIN (DAILY VITAMIN ORAL) Take 1 tablet by mouth once daily. No current facility-administered medications for this visit. ALLERGIES: ALLERGIES No Known Allergies VITALS: BP 122/64 Pulse 98 Temp 36.4 ?C (97.6 ?F) Resp 16 Wt 76 kg (167 lb 8.8 oz) SpO2 97% BMI 24.74 kg/m? PHYSICAL EXAM: GEN: NAD HEENT: EOMI, conjunctiva clear, HEART: regular rate and rhythm, no murmurs LUNGS: clear to auscultation, no wheezes or crackles, no increased WOB ABDOMEN: Soft, nondistended, no masses, no suprapubic tenderness BACK: No CVA, midline, or paraspinal tenderness. Straight leg test negative. ASSESSMENT/PLAN: 1. Pain with urination - ICD9: 788.1, ICD10: R30.9 (primary diagnosis) 2. Acute midline low back pain without sciatica - ICD9: 724.2, ICD10: M54.50 - UA DIP, URINE (POC) trace LE only. Differential discussed with patient including urinary tract infection, renal calculus, sexually transmitted infection/urethritis. He will await results of testing before treatment. - URINE CULTURE - GONORRHEA/CHLAMYDIA NAAT Seek ER evaluation for worsening back pain, blood in the urine, or fever. Ayaz Whitehead MD Allergies As of Date: 06/07/2024 (No Known Allergies) Date Reviewed: 06/07/2024 Reviewed by: Ifrah Darden MA - Fully Assessed Reason for Visit: Urinary Problem [252] Cmt: pain with urination, lower back pain x 2 days Primary Visit Diagnosis:Pain with urination [R30.9] Other Visit Diagnosis:Acute midline low back pain without sciatica [M54.50] Order(s):UA DIP, URINE (POC) [[id number]] Order #: [id number]. #:[id number] URINE CULTURE [SQURCUL] Order #: [id number]. #:[id number] GONORRHEA/CHLAMYDIA NAAT [SQGCCT] Order #: [id number]. #:[id number] Prescriptions as of 06/07/2024 - omeprazole (PRILOSEC) 20 mg capsule Take 20 mg by mouth once daily. - MULTIVITAMIN (DAILY VITAMIN ORAL) Take 1 tablet by mouth once daily. Meds Comments as of 11/14/2016: Pt stating is taking vitamin C Problem List As Of Date: 06/07/2024 (None) Medications Discontinued During This Encounter Prescriptions - Brompheniramine-Pseud oeph-DM (BROMFED DM) 2-30-10 mg/5 mL syrup (Discontinued) Reported on 03/01/2022 - Omeprazole 40 mg capsule (Discontinued) Reported on 09/26/2018 Level of Service: OFFICE/OUTPATIENT ESTABLISHED MOD MDM 30 MIN [33003] Encounter Status:Closed by AYAZ WHITEHEAD on 06/07/24 Normal [facility] UA DIP, URINE (POC)on 2023 BILIRUBIN UA (POCT) Negative Negative [facility] CLARITY UA (POCT) Cloudy [facility] COLOR UA (POCT) Yellow [facility] GLUCOSE UA (POCT) Negative Negative mg/dL [facility] Hemoglobin Ql (U) Negative Negative [facility] Interpretation and review of laboratory results Abnormal [facility] KETONE UA (POCT) Negative Negative mg/dL [facility] LEUKOCYTES UA (POCT) Trace Abnormal Negative [facility] NITRITE UA (POCT) Negative Negative [facility] PH UA (POCT) 5.5 4.5 - 8.0 [facility] Protein Ql (U) Negative Negative mg/dL [facility] SPECIFIC GRAVITY UA (POCT) 1.020 1.005 - 1.030 [facility] UROBILINOGEN UA (POCT) 0.2 Normal E.U./dL [facility] Location:[address], [id number] [place] [address] POINT OF CARE [facility] STREP A MOLECULAR (POC)on Procedural Control Valid [facility] Strep A (POCT) Negative Negative [facility] .Auto Diffon 12-20-2019 Ammonia (P) [Mass/Vol] 0.40 10 3/mcL Normal 0.15-1.00 [facility] ([place]) Comment on above: Performed By: #### C BC, ADIFF, ANEU #### [id number] [place], [place] [address] #### BMP, GFR, ACETA, ALC, VIRY #### [address] [address] Basophils (Bld) [#/Vol] 0.00 10 3/mcL Normal 0.00-0.19 [facility] ([place]) Comment on above: Performed By: #### C BC, ADIFF, ANEU #### [address] [place] [address] #### BMP, GFR, ACETA, ALC, VIRY #### [address] [address] Basophils/100 WBC (Bld) 0.4 % Normal 0.0-2.5 [facility] ([place]) Comment on above: Performed By: #### C BC, ADIFF, ANEU #### [address] [place] [address] #### BMP, GFR, ACETA, ALC, VIRY #### [address] [address] Eosinophils (Bld) [#/Vol] 0.10 10 3/mcL Normal 0.00-0.40 [facility] ([place]) Comment on above: Performed By: #### C BC, ADIFF, ANEU #### [address] [place] [address] #### BMP, GFR, ACETA, ALC, VIRY #### [address] [address] Eosinophils/100 WBC (Bld) 1.4 % Normal 0.0-7.0 [facility] ([place]) Comment on above: Performed By: #### C BC, ADIFF, ANEU #### [address] [place] [address] #### BMP, GFR, ACETA, ALC, VIRY #### [address] [address] Lymphocytes (Bld) [#/Vol] 0.90 10 3/mcL Normal 0.77-3.85 [facility] ([place]) Comment on above: Performed By: #### C BC, ADIFF, ANEU #### [address] [address] #### BMP, GFR, ACETA, ALC, VIRY #### [address] [address] Lymphocytes/100 WBC (Bld) 13.6 % Normal 10.0-50.0 [facility] ([place]) Comment on above: Performed By: #### C BC, ADIFF, ANEU #### [address] [address] #### BMP, GFR, ACETA, ALC, VIRY #### [address] [address] Monocytes/100 WBC (Bld) 6.1 % Normal 1.7-13.0 [facility] ([place]) Comment on above: Performed By: #### C BC, ADIFF, ANEU #### [address] [address] #### BMP, GFR, ACETA, ALC, VIRY #### [address] [address] Neutrophils/100 WBC (Bld) 78.5 % Normal 37.0-80.0 [facility] ([place]) Comment on above: Performed By: #### C BC, ADIFF, ANEU #### [address] [address] #### BMP, GFR, ACETA, ALC, VIRY #### [address] [address] .GFRon 12-20-2019 GFR 104 ml/min/1.73sqm Normal [facility] ([place]) Comment on above: Result Comment: GFR Population mean for , Non- Americans Ages 20-29 = 116 mL/min/1.73 sq.m. Ages 30-39 = 107 mL/min/1.73 sq.m. Ages 40-49 = 99 mL/min/1.73 sq.m. Ages 50-59 = 93 mL/min/1.73 sq.m. Ages 60-69 = 85 mL/min/1.73 sq.m. Ages 70+ = 75 mL/min/1.73 sq.m. Chronic Kidney Disease: Less than 60 mL/min/1.73 square meters End Stage Renal Disease: Less than 15 mL/min/1.73 square meters Performed By: #### C BC, ADIFF, ANEU #### [address] [address] #### BMP, GFR, ACETA, ALC, VIRY #### [address] [address] GFR Non- 86 ml/min/1.73sqm Normal [facility] ([place]) Comment on above: Result Comment: GFR Population mean for , Non- Americans Ages 20-29 = 116 mL/min/1.73 sq.m. Ages 30-39 = 107 mL/min/1.73 sq.m. Ages 40-49 = 99 mL/min/1.73 sq.m. Ages 50-59 = 93 mL/min/1.73 sq.m. Ages 60-69 = 85 mL/min/1.73 sq.m. Ages 70+ = 75 mL/min/1.73 sq.m. Chronic Kidney Disease: Less than 60 mL/min/1.73 square meters End Stage Renal Disease: Less than 15 mL/min/1.73 square meters Performed By: #### C BC, ADIFF, ANEU #### [address] [address] #### BMP, GFR, ACETA, ALC, VIRY #### [address] [address] .NEUABSon 12-20-2019 Neutrophils (Bld) [#/Vol] 5.50 10 3/mcL Normal 2.85-6.16 [facility] ([place]) Comment on above: Performed By: #### C BC, ADIFF, ANEU #### [address] [id number] #### BMP, GFR, ACETA, ALC, VIRY #### [address] [address] ACETAon 12-20-2019 Acetaminophen [Mass/Vol] 0.0 mcg/mL Low 10.0-30.0 [facility] ([place]) Comment on above: Performed By: #### C BC, ADIFF, ANEU #### [place] [address] #### BMP, GFR, ACETA, ALC, VIRY #### [address] [address] Luciana 12-20-2019 Ethanol Level <3 Normal 0-3 [facility] ([place]) Comment on above: Performed By: #### C BC, ADIFF, ANEU #### [address] [address] #### BMP, GFR, ACETA, ALC, VIRY #### [address] [address] BMPon 12-20-2019 Calcium [Mass/Vol] 9.3 mg/dL Normal 8.4-10.2 [facility] ([place]) Comment on above: Performed By: #### C BC, ADIFF, ANEU #### [address] [address] #### BMP, GFR, ACETA, ALC, VIRY #### [address] [address] Chloride [Moles/Vol] 100 mmol/L Normal 98-107 [facility] ([place]) Comment on above: Performed By: #### C BC, ADIFF, ANEU #### [place] [address] #### BMP, GFR, ACETA, ALC, VIRY #### [address] [place] [address] CO2 [Moles/Vol] 30 mmol/L High 22-29 [facility] ([place]) Comment on above: Performed By: #### C BC, ADIFF, ANEU #### [place] [address] #### BMP, GFR, ACETA, ALC, VIRY #### [place] [address] Creatinine [Mass/Vol] 1.08 mg/dL Normal 0.70-1.30 [facility] ([place]) Comment on above: Performed By: #### C BC, ADIFF, ANEU #### [place] [address] #### BMP, GFR, ACETA, ALC, VIRY #### [address] [address] Electrolyte Balance 10.0 mEq/L Normal [facility] ([place]) Comment on above: Performed By: #### C BC, ADIFF, ANEU #### [address] [address] #### BMP, GFR, ACETA, ALC, VIRY #### [address] [address] Glucose [Mass/Vol] 149 mg/dL High 70-105 [facility] ([place]) Comment on above: Performed By: #### C BC, ADIFF, ANEU #### [address] [address] #### BMP, GFR, ACETA, ALC, VIRY #### [address] [address] Potassium [Moles/Vol] 3.7 mmol/L Normal 3.5-5.1 [facility] ([place]) Comment on above: Performed By: #### C BC, ADIFF, ANEU #### [address] [address] #### BMP, GFR, ACETA, ALC, VIRY #### [address] [address] Sodium [Moles/Vol] 140 mmol/L Normal 136-145 [facility] ([place]) Comment on above: Performed By: #### C BC, ADIFF, ANEU #### [address] [address] #### BMP, GFR, ACETA, ALC, VIRY #### [address] [address] Urea nitrogen [Mass/Vol] 12 mg/dL Normal 7-18 [facility] ([place]) Comment on above: Performed By: #### C BC, ADIFF, ANEU #### [address] [address] #### BMP, GFR, ACETA, ALC, VIRY #### [address] [address] Urea nitrogen/Creatinin e [Mass ratio] 11 ratio Normal 7-27 [facility] ([place]) Comment on above: Performed By: #### C BC, ADIFF, ANEU #### [place] [address] #### BMP, GFR, ACETA, ALC, VIRY #### [address] [address] CBCon 12-20-2019 Erythrocyte distribution width (RBC) [Ratio] 13.0 % Normal 11.5-14.5 [facility] ([place]) Comment on above: Performed By: #### C BC, ADIFF, ANEU #### [place] [address] #### BMP, GFR, ACETA, ALC, VIRY #### [place] [address] Hematocrit (Bld) [Volume fraction] 47.0 % Normal 42.0-52.0 [facility] ([place]) Comment on above: Performed By: #### C BC, ADIFF, ANEU #### [place] [address] #### BMP, GFR, ACETA, ALC, VIRY #### [place] [address] Hemoglobin (Bld) [Mass/Vol] 15.7 G/dL Normal 14.0-18.0 [facility] ([place]) Comment on above: Performed By: #### C BC, ADIFF, ANEU #### [place] [address] #### BMP, GFR, ACETA, ALC, VIRY #### [address] [address] MCH (RBC) [Entitic mass] 29.2 pg Normal 27.0-31.2 [facility] ([place]) Comment on above: Performed By: #### C BC, ADIFF, ANEU #### [place] [address] #### BMP, GFR, ACETA, ALC, VIRY #### [address] [address] MCHC (RBC) [Mass/Vol] 33.4 G/dL Normal 31.8-35.4 [facility] ([place]) Comment on above: Performed By: #### C BC, ADIFF, ANEU #### [place] [address] #### BMP, GFR, ACETA, ALC, VIRY #### [address] [address] MCV (RBC) [Entitic vol] 87.3 fL Normal 80.0-94.0 [facility] ([place]) Comment on above: Performed By: #### C BC, ADIFF, ANEU #### [place] [address] #### BMP, GFR, ACETA, ALC, VIRY #### [place] [address] Platelet mean volume (Bld) [Entitic vol] 7.2 fL Low 7.4-10.4 [facility] ([place] Comment on above: Performed By: #### C BC, ADIFF, ANEU #### [place] [address] #### BMP, GFR, ACETA, ALC, VIRY #### [address] [address] Platelets (Bld) [#/Vol] 302 10 3/mcL Normal 130-400 [facility] ([place]) Comment on above: Performed By: #### C BC, ADIFF, ANEU #### [place] [address] #### BMP, GFR, ACETA, ALC, VIRY #### [address] [address] RBC (Bld) [#/Vol] 5.39 10 6/mcL Normal 4.04-6.13 [facility] ([place]) Comment on above: Performed By: #### C BC, ADIFF, ANEU #### [place] [address] #### BMP, GFR, ACETA, ALC, VIRY #### [place] [address] WBC (Bld) [#/Vol] 7.00 10 3/mcL Normal 4.60-10.80 [facility] ([place]) Comment on above: Performed By: #### C BC, ADIFF, ANEU #### [address] [address] #### BMP, GFR, ACETA, ALC, VIRY #### [place] [address] SALon 12-20-2019 Salicylate Level 0.2 mg/dL Low 2.8-20.0 [facility] ([place]) Comment on above: Performed By: #### C BC, ADIFF, ANEU #### [address] [address] #### BMP, GFR, ACETA, ALC, VIRY #### [place] [address] TOXSCon 12-20-2019 U Ampheta (AO) Negative Normal [facility] ([place]) Comment on above: Performed By: #### T OXSC #### [address] [address] U Shira (AO) Negative [facility] ([place]) Comment on above: Performed By: #### T OXSC #### [address] [address] U Zachary (AO) Negative [facility] ([place]) Comment on above: Performed By: #### T OXSC #### [address] [address] U Cannab (AO) Positive Normal [facility] ([place]) Comment on above: Performed By: #### T OXSC #### [address] [address] U Cocaine (AO) Negative [facility] ([place]) Comment on above: Performed By: #### T OXSC #### [address] [address] U Methadone (AO) Negative Normal [facility] ([place]) Comment on above: Performed By: #### T OXSC #### [address] [place], [place] [address] U PCP (AO) Negative Normal [facility] ([place]) Comment on above: Performed By: #### T OXSC #### [address] [place], [place] [address] U TCA (AO) Negative Normal [facility] ([place]) Comment on above: Performed By: #### T OXSC #### [address] [place], [place] [address] Urine Opiates (AO) Negative Normal [facility] ([place]) Comment on above: Performed By: #### T OXSC #### [address] [place], [place] [address] Vital Signs Date Time Vital Sign Value Performing Clinician Facility 01-25-2025 21:10-0400 Body height 175.26 cm No Primary Care Physician [facility] 01-25-2025 21:10-0400 Body mass index (BMI) [Ratio] 29 kg/m2 No Primary Care Physician [facility] 01-25-2025 21:10-0400 Body temperature 97 [degF] No Primary Care Physician [facility] 01-25-2025 21:10-0400 Body weight 89 kg No Primary Care Physician [facility] 01-25-2025 21:10-0400 Diastolic blood pressure 79 mm[Hg] No [facility] [facility] 01-25-2025 21:10-0400 Heart rate 107 /min No Primary Care Physician [facility] 01-25-2025 21:10-0400 Respiratory rate 17 /min No Primary Care Physician [facility] 01-25-2025 21:10-0400 SaO2% (BldA) [Mass fraction] 100 % No Primary Care Physician [facility] 01-25-2025 21:10-0400 Systolic blood pressure 121 mm[Hg] No Primary Care Physician [facility] 08-14-2024 14:50-0500 Body height 174.9 cm Dina Rollins APRN.MAGAZINE JOURNALIST Work Phone: [facility] 08-14-2024 14:50-0500 Body mass index (BMI) [Ratio] 26.61 kg/m2 Dina Canadaenhjose eduardo BUILDING ILLUMINATING ENGINEER.MAGAZINE JOURNALIST Work Phone: [facility] 08-14-2024 14:50-0500 Body weight 81.4 kg Dina Rollins BUILDING ILLUMINATING ENGINEER.MAGAZINE JOURNALIST Work Phone: [facility] 06-25-2024 12:55-0400 Body mass index (BMI) [Ratio] 24.81 kg/m2 Thiago Brown BUILDING ILLUMINATING ENGINEER.MAGAZINE JOURNALIST Work Phone: [facility] 06-25-2024 12:55-0400 Body temperature 98.4 [degF] Thiago Brown BUILDING ILLUMINATING ENGINEER.MAGAZINE JOURNALIST Work Phone: [facility] 06-25-2024 12:55-0400 Body weight 76.2 kg Thiago Brown BUILDING ILLUMINATING ENGINEER.MAGAZINE JOURNALIST Work Phone: [facility] 06-25-2024 12:55-0400 Diastolic blood pressure 74 mm[Hg] Thiago Brown BUILDING ILLUMINATING ENGINEER.MAGAZINE JOURNALIST Work Phone: [facility] 06-25-2024 12:55-0400 Heart rate 73 /min Thiago Brown BUILDING ILLUMINATING ENGINEER.MAGAZINE JOURNALIST Work Phone: [facility] 06-25-2024 12:55-0400 Respiratory rate 16 /min Thiago Brown BUILDING ILLUMINATING ENGINEER.MAGAZINE JOURNALIST Work Phone: [facility] 06-25-2024 12:55-0400 SaO2% (BldA) [Mass fraction] 98 % Thiago Brown BUILDING ILLUMINATING ENGINEER.MAGAZINE JOURNALIST Work Phone: [facility] 06-25-2024 12:55-0400 Systolic blood pressure 125 mm[Hg] Thiago Brown BUILDING ILLUMINATING ENGINEER.MAGAZINE JOURNALIST Work Phone: [facility] 06-07-2024 12:40-0400 Body mass index (BMI) [Ratio] 24.74 kg/m2 Ayaz Whitehead MD Work Phone: [facility] 06-07-2024 12:40-0400 Body temperature 97.59 [degF] Ayaz Whitehead MD Work Phone: [facility] 06-07-2024 12:40-0400 Body weight 76 kg Ayaz Whitehead MD Work Phone: [facility] 06-07-2024 12:40-0400 Diastolic blood pressure 64 mm[Hg] Ayaz Whitehead MD Work Phone: [facility] 06-07-2024 12:40-0400 Heart rate 98 /min Ayaz Whitehead MD Work Phone: [facility] 06-07-2024 12:40-0400 Respiratory rate 16 /min Ayaz Whitehead MD Work Phone: [facility] 06-07-2024 12:40-0400 SaO2% (BldA) [Mass fraction] 97 % Ayaz Whitehead MD Work Phone: [facility] 06-07-2024 12:40-0400 Systolic blood pressure 122 mm[Hg] Ayaz Whitehead MD Work Phone: [facility] 03-01-2022 13:30-0400 Body temperature 98.4 [degF] Sveta Praisler-Wood BUILDING ILLUMINATING ENGINEER.MAGAZINE JOURNALIST Work Phone: [facility] 03-01-2022 13:30-0400 Body weight 75.66 kg Sveta Praisler-Wood BUILDING ILLUMINATING ENGINEER.MAGAZINE JOURNALIST Work Phone: [facility] 03-01-2022 13:30-0400 Diastolic blood pressure 62 mm[Hg] Sveta Praisler-Wood BUILDING ILLUMINATING ENGINEER.MAGAZINE JOURNALIST Work Phone: [facility] 03-01-2022 13:30-0400 Heart rate 92 /min Sveta Praisler-Wood BUILDING ILLUMINATING ENGINEER.MAGAZINE JOURNALIST Work Phone: [facility] 03-01-2022 13:30-0400 Respiratory rate 16 /min Sveta Praisler-Wood BUILDING ILLUMINATING ENGINEER.MAGAZINE JOURNALIST Work Phone: [facility] 03-01-2022 13:30-0400 SaO2% (BldA) [Mass fraction] 99 % Sveta Praisler-Wood BUILDING ILLUMINATING ENGINEER.MAGAZINE JOURNALIST Work Phone: [facility] 03-01-2022 13:30-0400 Systolic blood pressure 118 mm[Hg] Sveta Walker BUILDING ILLUMINATING ENGINEER.MAGAZINE JOURNALIST Work Phone: [facility] Encounters Encounter Date Encounter Type Care Provider Facility Start: 02-28-2025 End: 02-28-2025 ambulatory [facility] Facility:[facility] Start: 01-29-2025 End: 01-29-2025 ambulatory [facility] Start: 01-25-2025 End: 01-25-2025 Emergency department patient visit No Primary Care Physician -Emergency Department Work Phone: Start: 08-28-2024 End: 08-28-2024 Orders Only Dina Rollins BUILDING ILLUMINATING ENGINEER.MAGAZINE JOURNALIST Work Phone: Urology Comment on above: Burning with urinati on (Primary Dx) Start: 08-15-2024 End: 08-15-2024 Emergency department patient visit Roque Gonzales Facility:[facility] Start: 08-15-2024 End: 08-15-2024 ambulatory [facility] Facility:[facility] Start: 08-15-2024 End: 08-15-2024 Patient encounter procedure Dennis Castle BUILDING ILLUMINATING ENGINEER.MAGAZINE JOURNALIST Work Phone: [facility] Comment on above: Procedure not ro d out (Primary Dx) Start: 08-14-2024 End: 08-14-2024 ambulatory DINAHOLLIS ROLLINS Facility:[facility] Start: 08-14-2024 End: 08-14-2024 Patient encounter procedure Dina Rollins BUILDING ILLUMINATING ENGINEER.MAGAZINE JOURNALIST Work Phone: Urology [facility] Comment on above: Scrotal irritation ( Primary Dx); Penile irritation; Urinary frequency; H/O chlamydia infection; Myalgia of pelvic floor Start: 06-25-2024 End: 06-25-2024 [facility] Facility:[facility] Start: 06-25-2024 End: 06-25-2024 Patient encounter procedure Thiago Lange BUILDING ILLUMINATING ENGINEER.MAGAZINE JOURNALIST Work Phone: [facility] Comment on above: Urinary frequency (P rimary Dx); Penile irritation; H/O chlamydia infection Start: 06-09-2024 End: 06-09-2024 Telephone encounter Sveta Walker APRN.MAGAZINE JOURNALIST Work Phone: [facility] Start: 06-08-2024 End: 06-08-2024 Telephone encounter Howard GREGORIO Work Phone: [facility] Comment on above: Results Start: 06-07-2024 End: 06-07-2024 ambulatory [facility] Facility:[facility] Start: 06-07-2024 End: 06-07-2024 Office outpatient visit 25 minutes Ayaz Whitehead MD Work Phone: [facility] Comment on above: Pain with urination (Primary Dx); Acute midline low back pain without sciatica Start: 03-01-2022 End: 03-01-2022 Patient encounter procedure Sveta Walker APRN.MAGAZINE JOURNALIST Work Phone: [facility] Comment on above: Sore throat (Primary Dx) Start: 10-18-2018 End: 10-18-2018 Patient encounter procedure [facility] Procedures Date Procedure Procedure Detail Performing Clinician Start: 01-25-2025 X-ray of knee, four or more views No Primary Care Physician Start: 08-14-2024 Urnls dip stick/tabl et reagent auto microscopy Dina Rollins BUILDING ILLUMINATING ENGINEER.MAGAZINE JOURNALIST Work Phone: Start: 08-14-2024 Urnls dip stick/tabl et rgnt auto w/o microscopy Dina Rollins BUILDING ILLUMINATING ENGINEER.MAGAZINE JOURNALIST Work Phone: Start: 06-25-2024 Urnls dip stick/tabl et rgnt auto w/o microscopy Thiago Lange BUILDING ILLUMINATING ENGINEER.MAGAZINE JOURNALIST Work Phone: Start: 06-07-2024 Urnls dip stick/tabl et rgnt auto w/o microscopy Padilla Zhu BUILDING ILLUMINATING ENGINEER.MAGAZINE JOURNALIST Work Phone: Start: 03-01-2022 STREP A MOLECULAR (POC) Sveta LambChicho PETTY Work Phone: Start: 08-26-2017 Adult depression screening assessment Sveta LambalaynaLeftyBryant PETTY Work Phone: Plan of Treatment Date Care Activity Detail Author Start: 01-25-2025 End: 01-25-2025 [facility] Start: 08-28-2024 End: 11-27-2024 Bacteria identified in Urine by Culture URINE CULTURE Microbiology Routine Burning with urination Expected: 08/28/2024, Expires: 11/27/2024 [facility] Work Phone: Comment on above: Expected: 08/28/2024 , Expires: 11/27/2024 Start: 08-28-2024 End: 11-27-2024 Urinalysis complete panel - Urine URINALYSIS, WITH MICROSCOPIC Lab Routine Burning with urination Expected: 08/28/2024, Expires: 11/27/2024 [facility] Comment on above: Expected: 08/28/2024 , Expires: 11/27/2024 Start: 08-14-2024 End: 11-13-2024 UROGENITAL UREAPLASMA AND MYCOPLASMA SPECIES BY PCR, FOR GENITAL, RECTAL, URINE SAMPLES [facility] Work Phone: Comment on above: Expected: 08/14/2024 , Expires: 11/13/2024 Start: 06-28-2024 End: 06-28-2024 Patient encounter procedure 06/28/2024 10:30 AM EDT Office Visit Urology [id number] [place] [address] Lynnette Lee MD [address] [place] [address] Urinary frequency [R35.0] Urology Comment on above: Urinary frequency [R 35.0] Start: 06-11-2024 Covid-19 Vaccine () Covid-19 Vaccine () [facility] Start: 06-11-2024 Covid-19 Vaccine ( season) Covid-19 Vaccine ( season) [facility] Start: 06-11-2024 Influenza vaccination Influenza Vacc ine (#1) [facility] Start: 06-11-2023 Covid-19 Vaccine ( season) Covid-19 Vaccine () [facility] Start: 06-11-2022 Influenza vaccination INFLUENZ A (Season Ended) [facility] Start: 08-26-2018 Adult depression screening assessment DEPRESSION SCREENING [facility] Start: 2015 Anxiety Screening Anxiety Screening [facility] Start: 2015 Depression Screening Depression Scre ening [facility] Start: 2015 HEPATITIS C SCREENING HEPATITIS C [facility] Start: 2015 Hepatitis C screening Hepatitis C [facility] Start: 2015 HIV SCREENING HIV SCREENING [facility] Start: 2015 HIV screening HIV Screening [facility] Start: 2011 PEDS TO ADULT TRANSITION ANNUAL ASSESSMENT PEDS TO ADULT TRANSITION ANNUAL ASSESSMENT [facility] Start: 2009 PEDS TO ADULT TRANSITION INITIAL DISCUSSION PEDS TO ADULT TRANSITION INITIAL DISCUSSION [facility] Start: 01-08-2008 HPV VACCINE (1 - Mal e 2-dose series) HPV VACCINE (1 - Male 2-dose series) [facility] Start: 01-08-2008 Urine microalbumin profile [facility] Start: 2002 COVID-19 VACCINE (#1) COVID-19 VACCI NE (#1) [facility] Bacteria identified in Urine by Culture URINE CULTURE Microbiology Routine Pain with urination Ordered: 06/07/2024 [facility] Work Phone: Comment on above: Ordered: 06/07/2024 Bacteria identified in Urine by Culture URINE CULTURE Microbiology Routine Urinary frequency 06/25/2024 1:48 PM EDT [facility] Work Phone: Chlamydia trachomatis+Neisseria gonorrhoeae DNA [Presence] in Unspecified specimen by THEO with probe detection GONORRHEA/CHLAMYDIA NAAT Lab Routine Pain with urination Ordered: 06/07/2024 [facility] Comment on above: Ordered: 06/07/2024 Chlamydia trachomatis+Neisseria gonorrhoeae DNA [Presence] in Unspecified specimen by THEO with probe detection GONORRHEA/CHLAMYDIA NAAT Lab Routine Urinary frequency 06/25/2024 1:48 PM EDT [facility] Patient Education Knee Pain ED B andage Elastic Wrap ED Knee Sprain [facility] Work Phone: Patient referral [facility] Work Phone: TRICHOMONAS VAGINALI S NAAT TRICHOMONAS VAGINALIS NAAT Lab Routine Urinary frequency 06/25/2024 1:48 PM EDT [facility] Immunizations Immunization Date Immunization Notes Care Provider Fa noel 05-16-2014 tetanus and diphther ia toxoids, adsorbed, preservative free, for adult use (2 Lf of tetanus toxoid and 2 Lf of diphtheria toxoid) No Primary Care Physician [facility] 02-16-2002 diphtheria, tetanus toxoids and acellular pertussis vaccine Sveta Praisler-Wood BUILDING ILLUMINATING ENGINEER.[facility] Work Phone: [facility] Work Phone: 02-16-2002 measles, mumps and rubella virus vaccine Sveta Praisler-Wood BUILDING ILLUMINATING ENGINEER.[facility] Work Phone: [facility] Work Phone: 02-16-2002 poliovirus vaccine, inactivated Sveta Praisler-Wood BUILDING ILLUMINATING ENGINEER.[facility] Work Phone: [facility] Work Phone: 04-11-1998 diphtheria, tetanus toxoids and acellular pertussis vaccine Sveta Praisler-Wood BUILDING ILLUMINATING ENGINEER.MAGAZINE JOURNALIST Work Phone: [facility] Work Phone: 04-11-1998 measles, mumps and rubella virus vaccine Sveta Praisler-Wood BUILDING ILLUMINATING ENGINEER.[facility] Work Phone: [facility] Work Phone: 04-11-1998 poliovirus vaccine, inactivated Sveta Praisler-Wood BUILDING ILLUMINATING ENGINEER.[facility] Work Phone: [facility] Work Phone: 1997 diphtheria, tetanus toxoids and acellular pertussis vaccine Sveta Praisler-Wood BUILDING ILLUMINATING ENGINEER.MAGAZINE JOURNALIST Work Phone: [facility] Work Phone: 1997 haemophilus influenz ae type b vaccine, conjugate unspecified formulation Sveta Praisler-Wood BUILDING ILLUMINATING ENGINEER.MAGAZINE JOURNALIST Work Phone: [facility] Work Phone: 1997 hepatitis B vaccine, pediatric or pediatric/adolescent dosage Sveta Praisler-Wood BUILDING ILLUMINATING ENGINEER.MAGAZINE JOURNALIST Work Phone: [facility] Work Phone: 1997 diphtheria, tetanus toxoids and acellular pertussis vaccine Sveta Praisler-Wood BUILDING ILLUMINATING ENGINEER.[facility] Work Phone: [facility] Work Phone: 1997 haemophilus influenz ae type b vaccine, conjugate unspecified formulation Sveta Praisler-Wood BUILDING ILLUMINATING ENGINEER.[facility] Work Phone: [facility] Work Phone: 1997 poliovirus vaccine, inactivated Sveta Praisler-Wood BUILDING ILLUMINATING ENGINEER.[facility] Work Phone: [facility] Work Phone: 1997 diphtheria, tetanus toxoids and acellular pertussis vaccine Sveta Praisler-Wood BUILDING ILLUMINATING ENGINEER.[facility] Work Phone: [facility] Work Phone: 1997 haemophilus influenz ae type b vaccine, conjugate unspecified formulation Sveta Praisler-Wood BUILDING ILLUMINATING ENGINEER.MAGAZINE JOURNALIST Work Phone: [facility] Work Phone: 1997 poliovirus vaccine, inactivated Sveta Praisler-Wood BUILDING ILLUMINATING ENGINEER.[facility] Work Phone: [facility] Work Phone: 1997 hepatitis B vaccine, pediatric or pediatric/adolescent dosage Sveta Praisler-Wood BUILDING ILLUMINATING ENGINEER.[facility] Work Phone: [facility] Work Phone: 1997 hepatitis B vaccine, pediatric or pediatric/adolescent dosage Sveta Terri MELENDREZ.MAGAZINE JOURNALIST Work Phone: [facility] Work Phone: 1997 Chicken Pox (disease) Sveta LambalaynaLeftyBryant MELENDREZ.MAGAZINE JOURNALIST Work Phone: [facility] Work Phone: Payers Date Payer Category Payer Self-pay 2023 Private Health Insurance YUKO JURADO OAP [id number] 2023-Present [phone] [address] [place] [id number] Open Access [id number] 2023 Private Health Insurance [id number] 2017 Unknown [employer] [id number] 2017-Present [phone] [address] [address] [place] [address] PPO [id number] Unknown [id number] Unknown [id number] Unknown [id number] Social History Date Type Detail Facility Start: 11-16-2016 End: 01-25-2025 Tobacco smoking status NHIS Never smoked tobacco [facility] Start: 11-16-2016 End: 06-25-2024 Tobacco use and exposure Smokeless tobacco non-user [facility] Start: 03-01-2022 End: 08-14-2024 Alcohol intake Current non-drinker of alcohol (finding) [facility] Start: 09-26-2018 History SDOH Alcohol Comment rarely [facility] Start: 05-21-2014 End: 06-25-2024 Tobacco Comment dad outside [facility] Start: 1997 Sex Assigned At Not on file [facility] Start: 02-19-2022 End: 03-01-2022 Exposure to SARS-CoV-2 (event) Not sure [facility] Work Phone: Start: 03-01-2022 End: 06-28-2024 History of Social function [facility] Start: 03-01-2022 End: 06-28-2024 Tobacco use panel [facility] National Score (1-100), lower number is lower risk Not on file [facility] Start: 01-25-2025 Sex Male (finding) [facility] Start: 1995 Sex Assigned At Male [facility] Clinical Notes 03-01-2022 to 02-28-2025 Note Date & Type Note Facility 02-28-2025 Note HNO ID: [id number] Author: YAJAIRA ARNDT PA-C Service: ? Author Type: Physician Anatomical Embalmer Type: Progress Notes Filed: 02/28/2025 09:11 Note Text: [facility] SUBJECTIVE: I have reviewed and revised, as needed, all rooming documentation from today. Brandon Jamil is a 30 year old male who presents to the office today with chief complaint of rash to right upper thigh beginning 3 days ago. Patient states prior to onset of rash had some tingling sensations to the skin beginning approximately 5 days ago. Rash is raised and blistering. No fever. Had chickepox as a child Positive for: itching, redness, spreading, and pain Negative for: drainage No SOB. No tongue swelling. No trouble handling secretions. There are no exam notes on file for this visit. Allergies: ALLERGIES No Known Allergies Current Outpatient Medications Medication Sig nystatin (NYSTOP) powder Apply to groin daily as needed. omeprazole (PRILOSEC) 20 mg capsule Take 20 mg by mouth once daily. MULTIVITAMIN (DAILY VITAMIN ORAL) Take 1 tablet by mouth once daily. No current facility-administered medications for this visit. PAST MEDICAL HISTORY Diagnosis Date NEGATIVE MEDICAL HISTORY PAST SURGICAL HISTORY Procedure Laterality Date CIRCUMCISION ESOPHAGOGASTRODUODENOSCOPY TRANSORAL DIAGNOSTIC 10/18/2018 EGD Social History Tobacco Use Smoking status: Never Smokeless tobacco: Never Tobacco comments: dad outside Substance Use Topics Alcohol use: No Comment: rarely Drug use: No Immunization History Administered Date(s) Administered Haemophilus influenzae b (Hib) vaccine, unspecified formulation 1997 1997 1997 chicken pox (disease) 1997 diphtheria tetanus pertussis (DTaP) vaccine, pediatric (INFANRIX) 1997 1997 1997 04/11/1998 02/16/2002 hepatitis B (HepB) vaccine, 3-dose series, age 0 yr - 19 yr (ENGERIX B-PEDS, RECOMBIVAX HB-PEDS) 1997 1997 1997 measles mumps rubella (MMR) vaccine (M-M-R II, PRIORIX) 04/11/1998 02/16/2002 poliovirus (IPV) vaccine, inactivated (IPOL) 1997 1997 04/11/1998 02/16/2002 REVIEW OF SYSTEMS: See HPI otherwise, all other reviewed and negative other than HPI. PHYSICAL EXAMINATION: BP 120/67 Pulse 77 Temp 97.9 Resp 16 SpO2 98% General appearance: Well appearing, alert, in no acute distress, well-hydrated, well nourished. Skin: Skin: vesicles on an erythematous base clustered on right upper thigh in a dermatomal distribution Lungs: Unlabored on room air ASSESSMENT/PLAN: 1. Herpes zoster without complication - ICD9: 053.9, ICD10: B02.9 Valtrex prescribed Discussed contagiousness and precautions with contact around immunocompromised people, elderly, young children or females May use Motrin if needed for pain control No evidence of secondary infection or disseminated zoster Advised to return for any new or worsening symptoms Yajaira Arndt PA-C This note was partially generated using [employer] voice recognition system, any errors noted are unintentional and are due to this technology. Patient declines printed AVS. Prefers to look at AVS in [employer]. History and Record Review External record(s) reviewed: prior outpatient record and prior labs/imaging. Findings from review of prior labs/imaging: Previous Renal Function Panel Reviewed No results within last 365 days. Differential Diagnoses - Shingles is more likely for the following reason(s): suggested by HANDP Disposition The patient was discharged. OTC Medications were advised: Procedures [facility] 01-25-2025 Discharge summary [facility] 01-25-2025 Radiology Diagnostic study note [facility] Imaging Services [address] [place] [address] Knee 4 or More Views MR#: [id number] Acct: [id number] Name: BRANDON JAMIL Rep #: [id number] : 1995 M 30 From: Brittany Fritz DO PCP: Care Physician,No Primary Status: PRE ER Study:Knee 4 or More Views Date of Exam: 01/25/25 Exam# [id number] Ordering Dr: Provider ,Ed P. PROCEDURE: KNEE 4 OR MORE VIEWS 01/25/2025 REASON FOR EXAM: PAIN TECHNIQUE: 4 views of the left knee COMPARISON: None FINDINGS: Bones: No fracture. No suspicious bone lesion. Joints: Normal alignment. Mild degenerative changes. Effusion: No effusion. Soft tissues: Soft tissues are unremarkable. Other: RAD/Knee 4 or More Views IMPRESSION: NO EFFUSION ACUTE FRACTURE OR DISLOCATION. Reading Location: [facility] CC: ED PHYSICIAN PROVIDER; No Primary Care Physician ~ Manager Stone: Signed [facility] 01-25-2025 Discharge summary Note Date/Time January 25, 2025 10:15pm [facility] Medical Records Department [address] [place] [address] Emergency Department Summary 01/25/25 MR#: [id number] Acct: [id number] Name: BRANDON JAMIL Rep #:[id number] : 1995 30 From: Arnel De León MD PCP: Ruddy Physician,No Primary Status :REG ER Location: ED HPI History of Present Illness Chief Complaint: Lower Extremity Injury Narrative Narrative: 30-year-old male who denies significant past medical history presents with injury to his left knee that he sustained a few hours ago. He states he was playing basketball, collided with another player, and fell. He fell with his left knee/lower leg behind him and the weight of his body put strain on his kneejoint. May have twisted some. He was able to stand afterwards and states that it felt okay, but then he started having more pain diffusely then behind the lateral aspect of his left knee. He denies hitting his head or loss of consciousness. No other injury. PFSH PFSH Home Medications ?Medication ?Instructions ?Recorded ?Last Taken ?Type No Known/Unobtainable [No Known 4 Unknown History Home Medications] Allergy/AdvReac Type Severity Reaction Status Date / Time No Known Allergies Allergy Verified 01/25/25 21:10 Social History Smoking Status: Never smoker ROS ROS ED ROS Narrative Review of systems, focused, positive for diffuse left knee pain and pain in the left posterior knee worse with movement and palpation. Left knee feels somewhatstiff and subjectively swollen. EXAM Physical Exam Narrative Exam Narrative: GCS 15. ABCs intact. Focused examination of the left knee shows that he can lift his leg straight off the bed without difficulty. He is neurovascular tact distally. Flexion extension of the left knee intact. There is mild tenderness to palpation along the left lateral biceps tendon/muscle. No crepitance. Const Vital Signs: 01/25/25 21:10 Temperature 97 F L Temperature Source Temporal Pulse Rate 107 H Respiratory Rate 17 Blood Pressure 121/79 H Blood Pressure Mean 93 Pulse Ox 100 Oxygen Delivery Method Room Air MDM MDM MDM Narrative Medical decision making narrative: Differential diagnosis includes but not limited to left knee sprain versus strain versus hamstring/tendon injury versus fracture versus internal derangement. Patient does not have any tenderness along the meniscal lines. There is no instability of the knee noted on examination. X-rays were obtained per protocol and interpreted by myself independently of the left knee. There is no effusion or fracture. No evidence of dislocation. I reviewed the radiology report which confirms my independent interpretation as well. At this point in time, I do feel he probably has more of a hamstring strain. Hewill be placed in an Grabiel wrap. He declined any oral analgesics here in the emergency department. He was given an ice pack for comfort. At this point in time, he was referred to orthopedics to follow-up with in 1 week if not improving. Return instructions to the emergency department were reviewed. Disposition is discharged home in stable condition. Radiography Diagnostic Testing: Clinical Impression(s) from Imaging Studies Knee X-Ray 01/25/25 21:20 IMPRESSION: NO EFFUSION ACUTE FRACTURE OR DISLOCATION. Reading Location: [facility] Discharge Plan Triage Chief Complaint: Lower Extremity Injury ED Provider: Arnel De León Dx/Rx/DC Orders Clinical Impression: Injury of knee, left, Left hamstring muscle strain Instructions: Knee Pain, ED Bandage Elastic Wrap, ED Knee Sprain Prescriptions: No Action No Known Home Medications Primary Care Provider: Care Physician,No Primary Referrals: Indra Mooney MD [Med Staff - Active Staff] - 1 Week if not improving Care Physician,No Primary [Primary Care Provider] - Activity Restrictions/Additional Instructions: Use Grabiel wrap for support. Continue ice and elevation at home. Take Tylenol or ibuprofen as needed for pain. Follow-up with orthopedics in 1 week if not improving. Return with increased pain, new or worsening symptoms. Print Language: Bahamian Disposition Disposition: Home, Self Care What to do if you have Problems For any increased pain, shortness of breath, bleeding, nausea or vomiting, chestpain, or any unexpected problems, contact your Primary Care Provider. Call [facility] ([phone]) or report to the closest Emergency Room. Call 911 if necessary. 01/25/252214 <Electronically signed by Arnel De León MD> Cosigner Signature (if applicable): CC: No Primary Care Physician ~ Signed [facility] Work Phone: 1(425) 732-878811-05-2024 NoteHNO ID: [id number] Author: DENNIS CASTLE APRN.MAGAZINE JOURNALIST Service: ? Author Type: Nurse Practitioner Type: Progress Notes Filed: 08/15/2024 09:39 Note Text: Nontoxic-appearing male presents urgent care chief complaint chemical burn. Patient states splashed a unknown chemical in his eye at work. Has had significant discomfort and redness. On examination patient had significant redness. With mechanism of injury recommended patient be emergently seen the ED for further evaluation care. Will be sent [facility]. Dennis Castle [facility] History of Present illness Narrative* Dennis Castle APRN.MAGAZINE JOURNALIST - 08/15/2024 9:38 AM EST Nontoxic-appearing male presents urgent care chief complaint chemical burn. Patient states splasheda unknown chemical in his eye at work. Has had significant discomfort and redness. On examination patient had significant redness. With mechanism of injury recommended patient be emergently seen the ED for further evaluation care. Will be sent [facility]. Dennis Castle APRN.PEDRO documented [facility] encounterP[facility]11-[facility] Nurse Note* Sveta Sanchez MA - 08/14/2024 2:59 PM EST Post Void Residual done on patient with 0 cc residual volume remaining. notified. Sveta Sanchez MA [facility]11-04-[facility] Nurse Note* Sveta Sanchez MA - 08/14/2024 2:59 PM EST Post Void Residual done on patient with 0 cc residual volume remaining. notified. Sveta Sanchez MA documented in this encounterPomerene Hospital11-04-2024 NoteHNO ID: [id number] Author: DINA ROLLINS APRN.PEDRO Service: ? Author Type: Nurse Practitioner Type: Progress Notes Filed: 08/21/2024 19:59 Note Text: [facility] MALE PATIENT - HISTORY AND PHYSICAL EXAMINATION PATIENT: Brandon Jamil Patient has been identified by name and date of : Yes PCP: No primary care provider on file. Thiago Lange CNP- referring provider CHIEF COMPLAINT: urgency concerns. Penile irritation. HISTORY OF PRESENT ILLNESS: Brandon Jamil is a 29 year old male presenting today for: urinary frequency/ penile irritation. Pt was seen by family medicine on 06/25/24 for these concerns. GC, trich, UA, culture were negative. Was treated for Chlamydia in the recent past and treated with Doxy x 7 days. Pt c/o itching/ burning to the urethra X 1 month. He also reports redness and tenderness to his scrotal skin. No risk for new STDs. No penile drainage. Review: Daytime frequency: Q 2-3 Hrs; Night time frequency: 0-1X Irritative (STORAGE) symptoms: - Bothersome frequency: No - Urgency: No - Incontinence: Stress No / Urge No Obstructive symptoms: - Force of stream Good - Hesitancy No - Intermittency: No - Straining: No - Incomplete emptying: No - Double voiding: No - Postvoid dribbling: Yes Current Urinary Status: - Indwelling catheter: No - Current intermittent Catheterization: No - Gross hematuria: No - UTI: No Denies fever, chills, dysuria. Pelvic pain review: Pain with erections: none Pain with ejaculation: yes Perineal pain: yes Groin pain: intermittent lower abd pain. Resolved. Scrotal pain: yes, discomfort. Lower back pain: no Constipation: sometimes. Heavy lifting: none REVIEW OF SYSTEMS: relevant updates noted in HPI PAST MEDICAL HISTORY: PAST MEDICAL HISTORY Diagnosis Date NEGATIVE MEDICAL HISTORY PAST SURGICAL HISTORY Procedure Laterality Date CIRCUMCISION ESOPHAGOGASTRODUODENOSCOPY TRANSORAL DIAGNOSTIC 10/18/2018 EGD Social History Tobacco Use Smoking status: Never Smokeless tobacco: Never Tobacco comments: dad outside Substance Use Topics Alcohol use: No Comment: rarely Drug use: No FAMILY HISTORY Problem Relation Age of Onset other (Kidney problems) Father Hypertension Maternal Grandmother other (Kidney problems) Maternal Grandmother Heart Maternal Grandfather Hypertension Maternal Uncle MEDICATIONS: reviewed and confirmed with patient OFFICE DATA: labs reviewed 08/14/24 POST-VOID RESIDUAL BLADDER VOLUME: 0 cc URINALYSIS: + blood OTHER DATA: Labs reviewed No results found for: PSA No results found for: TESTOST, TESTFREE No results found for: HBA1C No results found for: TSH Creatinine Date Value Ref Range Status 08/26/2017 0.96 0.73 - 1.22 mg/dL Final PHYSICAL EXAMINATION: The sensitive examination was discussed with the Patient or Patient's Authorized Facing End Trimmer. As applicable, any other physician, advance practice provider, medical student, or other health professional student that will be observing or involved in the sensitive examination for educational or training purposes was discussed with the Patient or Authorized Facing End Trimmer. The Patient or Authorized Facing End Trimmer has agreed to proceed with the sensitive examination. (Sensitive examination includes inspection and/or palpation of the breasts, pelvis, prostate and anorectal regions) General appearance: cooperative, pleasant, no acute distress, alert and oriented, well nourished male. Neuro: normal affect, normal speech, gait is normal. Lungs/chest: no signs of respiratory distress, no audible wheezing Extremities: no edema, normal motor function. Back: no CVA tenderness Abdomen: no suprapubic distention Scrotum: non-erythematous, no lesions, no hydrocele- generalized scrotal skin. Testes: descended bilaterally, non-tender, nl size bilaterally, no intratesticular masses bilaterally Epididymes: non-tender, no masses, palpable vas bilaterally. Penis: circumcised, NL phallus, no lesions, NL meatus, no identifiable peyronie's plaque. ASSESSMENT: 1. Scrotal irritation - ICD9: 608.9, ICD10: N50.89 (primary diagnosis) 2. Penile irritation - ICD9: 607.89, ICD10: N48.89 3. Urinary frequency - ICD9: 788.41, ICD10: R35.0 4. H/O chlamydia infection - ICD9: V12.09, ICD10: Z86.19 5. Myalgia of pelvic floor - ICD9: 729.1, ICD10: M79.18 PLAN: 1. Scrotal irritation - nystatin (NYSTOP) powder; Apply to groin daily as needed. -consider derm consult. 2. Penile irritation - CONSULT TO UROLOGY - UROGENITAL UREAPLASMA AND MYCOPLASMA SPECIES BY PCR, FOR GENITAL, RECTAL, URINE SAMPLES; - SYPHILIS TREPONEMAL W/REFLEX; Future - HIV 1/2 COMBO WITH REFLEX TO DIFFERENTIATION; Future -could be related to pelvic floor myalgia. -encouraged hydration. -cysto as contingency plan 3. Urinary frequency - CONSULT TO UROLOGY - URINALYSIS, WIT (more content not included)...[facility] 08-14-[facility] History of Present illness Narrative* Dina Rollins APRN.MAGAZINE JOURNALIST - 08/14/2024 2:57 PM EST [facility] MALE PATIENT - HISTORY AND PHYSICAL EXAMINATION PATIENT: Brandon Jamil Patient has been identified by name and date of : Yes PCP: No primary care provider on file. Thiago Lange CNP- referring provider CHIEF COMPLAINT: urgency concerns. Penile irritation. HISTORY OF PRESENT ILLNESS: Brandon Jamil is a 29 year old male presenting today for: urinary frequency/ penile irritation. Pt was seen by family medicine on 06/25/24 for these concerns. GC, trich, UA, culture were negative. Was treated for Chlamydia in the recent past and treated with Doxy x 7 days. Pt c/o itching/ burning to the urethra X 1 month. He also reports redness to his scrotal skin. He also has tender scrotal skin. No risk for new STDs. No penile drainage. Review: Daytime frequency: Q 2-3 Hrs; Night time frequency: 0-1X Irritative (STORAGE) symptoms: - Bothersome frequency: No - Urgency: No - Incontinence: Stress No / Urge No Obstructive symptoms: - Force of stream Good - Hesitancy No - Intermittency: No - Straining: No - Incomplete emptying: No - Double voiding: No - Postvoid dribbling: Yes Current Urinary Status: - Indwelling catheter: No - Current intermittent Catheterization: No - Gross hematuria: No - UTI: No Denies fever, chills, dysuria. Pelvic pain review: Pain with erections: none Pain with ejaculation: yes Perineal pain: yes Groin pain: intermittent lower abd pain. Resolved. Scrotal pain: yes, discomfort. Lower back pain: no Constipation: sometimes. Heavy lifting: none REVIEW OF SYSTEMS: relevant updates noted in HPI PAST MEDICAL HISTORY: PAST MEDICAL HISTORY Diagnosis Date NEGATIVE MEDICAL HISTORY PAST SURGICAL HISTORY Procedure Laterality Date CIRCUMCISION ESOPHAGOGASTRODUODENOSCOPY TRANSORAL DIAGNOSTIC 10/18/2018 EGD Social History Tobacco Use Smoking status: Never Smokeless tobacco: Never Tobacco comments: dad outside Substance Use Topics Alcohol use: No Comment: rarely Drug use: No FAMILY HISTORY Problem Relation Age of Onset other (Kidney problems) Father Hypertension Maternal Grandmother other (Kidney problems) Maternal Grandmother Heart Maternal Grandfather Hypertension Maternal Uncle MEDICATIONS: reviewed and confirmed with patient OFFICE DATA: labs reviewed 08/14/24 POST-VOID RESIDUAL BLADDER VOLUME: 0 cc URINALYSIS: + blood OTHER DATA: Labs reviewed No results found for: PSA No results found for: TESTOST, TESTFREE No results found for: HBA1C No results found for: TSH Creatinine Date Value Ref Range Status 08/26/2017 0.96 0.73 - 1.22 mg/dL Final PHYSICAL EXAMINATION: The sensitive examination was discussed with the Patient or Patient's Authorized Facing End Trimmer. Asapplicable, any other physician, advance practice provider, medical student, or other health professional student that will be observing or involved in the sensitive examination for educational or training purposes was discussed with the Patient or Authorized Facing End Trimmer. The Patient or Authorized Facing End Trimmer has agreed to proceed with the sensitive examination. (Sensitive examination includes inspection and/or palpation of the breasts, pelvis, prostate and anorectal regions) General appearance: cooperative, pleasant, no acute distress, alert and oriented, well nourished male. Neuro: normal affect, normal speech, gait is normal. Lungs/chest: no signs of respiratory distress, no audible wheezing Extremities: no edema, normal motor function. Back: no CVA tenderness Abdomen: no suprapubic distention Scrotum: non-erythematous, no lesions, no hydrocele- generalized scrotal skin. Testes: descended bilaterally, non-tender, nl size bilaterally, no intratesticular masses bilaterally Epididymes: non-tender, no masses, palpable vas bilaterally. Penis: circumcised, NL phallus, no lesions, NL meatus, no identifiable peyronie's plaque. ASSESSMENT: 1. Scrotal irritation - ICD9: 608.9, ICD10: N50.89 (primary diagnosis) 2. Penile irritation - ICD9: 607.89, ICD10: N48.89 3. Urinary frequency - ICD9: 788.41, ICD10: R35.0 4. H/O chlamydia infection - ICD9: V12.09, ICD10: Z86.19 5. Myalgia of pelvic floor - ICD9: 729.1, ICD10: M79.18 PLAN: 1. Scrotal irritation - nystatin (NYSTOP) powder; Apply to groin daily as needed. -can consider derm consult. 2. Penile irritation - CONSULT TO UROLOGY - UROGENITAL UREAPLASMA AND MYCOPLASMA SPECIES BY PCR, FOR GENITAL, RECTAL, URINE SAMPLES; - SYPHILIS TREPONEMAL W/REFLEX; Future - HIV 1/2 COMBO WITH REFLEX TO DIFFERENTIATION; Future -could be related to pelvic floor myalgia. 3. Urinary frequency - CONSULT TO UROLOGY - URINALYSIS, WITH MICROSCOPIC -no longer a major concern. -avoid bladder irritants. -encouraged hydration. 4. H/O chlamydia infection - CONSULT TO UROLOGY -treated with doxycycline recently. -last GC, trich was negative. -ureaplasma, syphilis and HIV testing ordered. 5. Myalgia of pelvic floor -discussed as a differential. -PFPT as a contingency plan. Consultation requested by Thiago Lange CNP for an opinion regarding penile irritation. My final recommendations will be communicated back to the requesting physician by way of shared Medical record or letter to requesting physician via US mail. The results of tests will be communicated to patient via . Patient verbalized understanding. Dina Rollins APRN.CNP Location: [facility] documented [facility]09-[facility]24 Instructions* Patient Instructions* Thiago Lange APRN.PEDRO - 06/25/2024 1:28 PM EDT - Follow up with urology in the next 1-2 days. EXPRESS [facility]ARE PATIENT INFO CLAMYDIA AND GONORRHEA What are chlamydia and gonorrhea? - Chlamydia and gonorrhea are two different infections that you can catch during sex. They cause similar symptoms. These infections can affect the: Sex organs Urethra (the tube that carries urine out of the body) Throat Rectum or anus (especially in men who have sex with men) Infections that you can catch during sex are called sexually transmitted infections. What are the symptoms of chlamydia and gonorrhea? - Often these infections cause no symptoms. But when they do, the symptoms are different for men than for women. In women, the symptoms of both infections include: Vaginal discharge Abnormal vaginal bleeding or spotting Belly pain Pain during sex Burning or pain during urination In addition to the symptoms listed above, in women gonorrhea can also cause itching of the vagina or anus. In men, the symptoms of both infections include: Burning or pain during urination Discharge from the penis Pain, swelling, or tenderness of the testicles Are there tests for chlamydia and gonorrhea? - Yes. Your doctor or nurse can test you for these infections using a: Urine sample Sample from inside the vagina, if you are a woman Should I see a doctor or nurse? - Yes, you should see a doctor or nurse if you have any of the symptoms listed above. You should also see a doctor or nurse if any of your sexual partners have been diagnosed with either infection. Even if you have no symptoms, you could be infected. Your doctor might want to test you for sexually transmitted infections now and in the future. How are chlamydia and gonorrhea treated? - The main treatment for both infections is antibiotics. The antibiotic for gonorrhea often comes in a single shot. The antibiotic for chlamydia comes in a pill. Treatment might involve taking a single pill, or it might involve taking medicine for a whole week. No matter what, make sure you take all the pills your doctor or nurse prescribes. Otherwise the infection might come back. If you learn that you have chlamydia or gonorrhea, you should tell all the people you have had sex with recently. They might also be infected (even if they have no symptoms) and need treatment. What happens if I don't get treated? - Leaving chlamydia or gonorrhea untreated can cause long termproblems for both men and women. In women it can lead to a problem called pelvic inflammatory disease, or PID. PID can cause pain and make it hard to get . In men and women, leaving gonorrhea untreated can lead to joint infections and arthritis. It can also increase the risk of becominginfected with HIV. Can chlamydia and gonorrhea prevented? - You can reduce your chances of getting chlamydia or gonorrhea by: Using a latex condom every time you have sex Avoiding sex when you or your partner has any symptoms that could be caused by an infection (such as itching, discharge, or pain with urination) Not having sex documented in this encounterPomerene Hospital09-15-2024 NoteHNO ID: [id number] Author: THIAGO LANGE APRN.PEDRO Service: ? Author Type: Nurse Practitioner Type: Progress Notes Filed: 06/25/2024 13:50 Note Text: Subjective Pt was seen 2.5 weeks ago at another [facility], tested positive for Chlamydia and treated with Doxy x 7 days. States dysuria resolved but all other symptoms have remained, concerned still has chlamydia. C/o urinary frequency and urgency, suprapubic pain, bilateral flank pain and penis and testicles feel uncomfortable and irritated and red x 2.5 weeks. States took all of the Doxy and partner was also treated, refrained from intercourse for > 7 days while both were treated. Partner does not have any symptoms. Denies any new partners. Denies hx of herpes. The history is provided by the patient. No language assistant was used. Review of Systems Constitutional: Negative for chills, fatigue and fever. Respiratory: Negative for shortness of breath and wheezing. Gastrointestinal: Positive for abdominal pain (suprapubic). Negative for diarrhea, nausea and vomiting. Genitourinary: Positive for flank pain (bilateral) and frequency. Negative for dysuria, genital sores, hematuria, penile discharge and urgency. Penile pain: states feels uncomfortable and irritated. Testicular pain: states feels uncomfortable and irritated. Reports hx of UTI as child. Denies hx of kidney stones. omeprazole (PRILOSEC) 20 mg capsule Take 20 mg by mouth once daily. MULTIVITAMIN (DAILY VITAMIN ORAL) Take 1 tablet by mouth once daily. ALLERGIES No Known Allergies There is no problem list on file for this patient. Physical Exam Vitals and nursing note reviewed. Constitutional: General: He is not in acute distress. Appearance: Normal appearance. He is not toxic-appearing. Cardiovascular: Rate and Rhythm: Normal rate. Pulmonary: Effort: Pulmonary effort is normal. No accessory muscle usage or respiratory distress. Abdominal: General: Bowel sounds are normal. Palpations: Abdomen is soft. Abdomen is not rigid. Tenderness: There is no abdominal tenderness. There is no right CVA tenderness, left CVA tenderness, guarding or rebound. Genitourinary: Pubic Area: No rash. Penis: No erythema, tenderness, discharge, swelling or lesions. Testes: Right: Tenderness or swelling not present. Left: Tenderness or swelling not present. Comments: No scrotal erythema noted. Pocket Setter Lockstitch for exam = [place] MA. Skin: General: Skin is warm and dry. Capillary Refill: Capillary refill takes less than 2 seconds. Neurological: Mental Status: He is alert and oriented to person, place, and time. BP 125/74 Pulse 73 Temp 36.9 ?C (98.4 ?F) (Left Tympanic) Resp 16 Wt 76.2 kg (168 lb) SpO2 98% BMI 24.81 kg/m2 ASSESSMENT/PLAN: Encounter Diagnosis ICD-10-CM 1. Urinary frequency R35.0 URINE CULTURE UA DIP, URINE (POC) GONORRHEA/CHLAMYDIA NAAT TRICHOMONAS VAGINALIS NAAT CONSULT TO UROLOGY 2. Penile irritation N48.89 CONSULT TO UROLOGY 3. H/O chlamydia infection Z86.19 CONSULT TO UROLOGY Results for orders placed or performed in visit on 06/25/24 UA DIP, URINE (POC) Result Value Ref Range GLUCOSE UA (POCT) Negative Negative mg/dL BILIRUBIN UA (POCT) Negative Negative KETONE UA (POCT) Negative Negative mg/dL SPECIFIC GRAVITY UA (POCT) 1.015 1.005 - 1.030 HEMOGLOBIN/BLOOD UA (POCT) Negative Negative PH UA (POCT) 8.5 (A) 4.5 - 8.0 PROTEIN UA (POCT) Negative Negative mg/dL UROBILINOGEN UA (POCT) 0.2 Normal E.U./dL NITRITE UA (POCT) Negative Negative LEUKOCYTES UA (POCT) Negative Negative COLOR UA (POCT) Yellow CLARITY UA (POCT) Clear - URINE CULTURE - sent to lab, will call if any changes need to be made. - GC/CHLAMYDIA/TRICH URINE - sent to lab, will call with positive results and treat as needed. - Follow up with urology in the next 1-2 days. - Push fluids - Tylenol or Motrin prn - ED for worsening symptoms - any fevers, chills, worsening flank or abdominal pain, testicular pain or swelling, nausea or vomiting. - See patient instructions for further recommendations. - Pt education along with discharge instructions given to pt - Discussed Red Flag signs and when to go to ER. - Pt agreeable with plan and verbalizes understanding. - Follow up with PCP if symptoms worsen or do not improve in the next 2-3 days. Thiago Lange APRN.[facility]09-15-2024 History of Present illness Narrative* Thiago Lange APRN.MAGAZINE JOURNALIST - 06/25/2024 12:57 PM EDT Subjective Pt was seen 2.5 weeks ago at another [facility], tested positive for Chlamydia and treated with Doxy x 7 days. States dysuria resolved but all other symptoms have remained, concerned still has chlamydia. C/o urinary frequency and urgency, suprapubic pain, bilateral flank pain and penis and testicles feel uncomfortable and irritated and red x 2.5 weeks. States took all of the Doxy and partner was also treated, refrained from intercourse for > 7 days while both were treated. Partner does not have any symptoms. Denies any new partners. Denies hx of herpes. The history is provided by the patient. No language assistant was used. Review of Systems Constitutional: Negative for chills, fatigue and fever. Respiratory: Negative for shortness of breath and wheezing. Gastrointestinal: Positive for abdominal pain (suprapubic). Negative for diarrhea, nausea and vomiting. Genitourinary: Positive for flank pain (bilateral) and frequency. Negative for dysuria, genital sores, hematuria, penile discharge and urgency. Penile pain: states feels uncomfortable and irritated. Testicular pain: states feels uncomfortable and irritated. Reports hx of UTI as child. Denies hx of kidney stones. omeprazole (PRILOSEC) 20 mg capsule Take 20 mg by mouth once daily. MULTIVITAMIN (DAILY VITAMIN ORAL) Take 1 tablet by mouth once daily. ALLERGIES No Known Allergies There is no problem list on file for this patient. Physical Exam Vitals and nursing note reviewed. Constitutional: General: He is not in acute distress. Appearance: Normal appearance. He is not toxic-appearing. Cardiovascular: Rate and Rhythm: Normal rate. Pulmonary: Effort: Pulmonary effort is normal. No accessory muscle usage or respiratory distress. Abdominal: General: Bowel sounds are normal. Palpations: Abdomen is soft. Abdomen is not rigid. Tenderness: There is no abdominal tenderness. There is no right CVA tenderness, left CVA tenderness, guarding or rebound. Genitourinary: Pubic Area: No rash. Penis: No erythema, tenderness, discharge, swelling or lesions. Testes: Right: Tenderness or swelling not present. Left: Tenderness or swelling not present. Comments: No scrotal erythema noted. Pocket Setter Lockstitch for exam = Mesfin MA. Skin: General: Skin is warm and dry. Capillary Refill: Capillary refill takes less than 2 seconds. Neurological: Mental Status: He is alert and oriented to person, place, and time. BP 125/74 Pulse 73 Temp 36.9 C (98.4 F) (Left Tympanic) Resp 16 Wt 76.2 kg (168 lb) SpO2 98% BMI 24.81 kg/m2 ASSESSMENT/PLAN: Encounter Diagnosis ICD-10-CM 1. Urinary frequency R35.0 URINE CULTURE UA DIP, URINE (POC) GONORRHEA/CHLAMYDIA NAAT TRICHOMONAS VAGINALIS NAAT CONSULT TO UROLOGY 2. Penile irritation N48.89 CONSULT TO UROLOGY 3. H/O chlamydia infection Z86.19 CONSULT TO UROLOGY Results for orders placed or performed in visit on 06/25/24 UA DIP, URINE (POC) Result Value Ref Range GLUCOSE UA (POCT) Negative Negative mg/dL BILIRUBIN UA (POCT) Negative Negative KETONE UA (POCT) Negative Negative mg/dL SPECIFIC GRAVITY UA (POCT) 1.015 1.005 - 1.030 HEMOGLOBIN/BLOOD UA (POCT) Negative Negative PH UA (POCT) 8.5 (A) 4.5 - 8.0 PROTEIN UA (POCT) Negative Negative mg/dL UROBILINOGEN UA (POCT) 0.2 Normal E.U./dL NITRITE UA (POCT) Negative Negative LEUKOCYTES UA (POCT) Negative Negative COLOR UA (POCT) Yellow CLARITY UA (POCT) Clear - URINE CULTURE - sent to lab, will call if any changes need to be made. - GC/CHLAMYDIA/TRICH URINE - sent to lab, will call with positive results and treat as needed. - Follow up with urology in the next 1-2 days. - Push fluids - Tylenol or Motrin prn - ED for worsening symptoms - any fevers, chills, worsening flank or abdominal pain, testicular pain or swelling, nausea or vomiting. - See patient instructions for further recommendations. - Pt education along with discharge instructions given to pt - Discussed Red Flag signs and when to go to ER. - Pt agreeable with plan and verbalizes understanding. - Follow up with PCP if symptoms worsen or do not improve in the next 2-3 days. Thiago Lange APRN.PEDRO documented in this encounterPome[facility] Hospital08-30-[facility]24 Telephone encounter Note * Telephone Encounter - Pratibha Mcneal LPN - 06/09/2024 9:29 AM EDT Patient given results and verbalized understanding of instructions given. Pratibha Mcneal LPN [facility]08-30-2024 Miscellaneous Notes* Telephone Encounter - Pratibha Mcneal LPN - 06/09/2024 9:29 AM EDT Patient given results and verbalized understanding of instructions given. Pratibha Mcneal LPN * Telephone Encounter - Pratibha Mcneal LPN - 06/09/2024 8:40 AM EDT ----- Message from Sveta Walker APRN.CNP sent at 06/09/2024 7:11 AM EDT ----- Please advise patient the urine culture was negative. He should complete treatment for chlamydia as prescribed. Sveta Walker APRN.MAGAZINE JOURNALIST documented in this encounterPomerene Hospital08-30-2024 Telephone encounter Note * Telephone Encounter - Pratibha Mcneal LPN - 06/09/2024 8:40 AM EDT ----- Message from Sveta Walker APRN.MAGAZINE JOURNALIST sent at 06/09/2024 7:11 AM EDT ----- Please advise patient the urine culture was negative. He should complete treatment for chlamydia as prescribed. Sveta Walker APRN.MAGAZINE JOURNALIST [facility]08-29-[facility] Telephone encounter Note* Telephone Encounter - Nayan Velasquez MA - 06/08/2024 8:33 AM EDT Patient notified of results, verbalized understanding of instructions given. Nayan Velasquez MA [facility]08-29-2024 Miscellaneous Notes* Telephone Encounter - Nayan Velasquez MA - 06/08/2024 8:33 AM EDT Patient notified of results, verbalized understanding of instructions given. Nayan Velasquez MA * Telephone Encounter - Howard Martin PA - 06/08/2024 7:36 AM EDT Please contact patient and let him know he tested positive for chlamydia. He is negative for gonorrhea. He needs to notify all sexual partners. I have sent in doxycycline to [facility] pharmacy. Advisedpatient to take all this medication and finish it as prescribed. No sexual intercourse for 7 days after completing treatment. documented in this encounterPomerene Hospital08-29-2024 Telephone encounter Note * Telephone Encounter - Howard Martin PA - 06/08/2024 7:36 AM EDT Please contact patient and let him know he tested positive for chlamydia. He is negative for gonorrhea. He needs to notify all sexual partners. I have sent in doxycycline to [facility] pharmacy. Advisedpatient to take all this medication and finish it as prescribed. No sexual intercourse for 7 days after completing treatment. [facility]08-[facility] NoteHNO ID: [id number] Author: AYAZ WHITEHEAD MD Service: ? Author Type: Physician Type: Progress Notes Filed: 06/07/2024 13:11 Note Text: Patient presents with: Urinary Problem: pain with urination, lower back pain x 2 days HPI: Symptoms for 2 days. Dysuria: Yes Frequency: Yes Hematuria: No Discharge: No Genital lesion: No ulcers, papules, vesicles, or rash Nausea: increased reflux symptoms Fever or chills: No Back pain: midline lumbar, crampy, no radiation Abdominal pain: No Prior UTI: believes once as a child. Currently sexually active. Personal history of kidney stones: No Family history of kidney stones: sister just had a stone MEDICATIONS: Current Outpatient Medications Medication Sig omeprazole (PRILOSEC) 20 mg capsule Take 20 mg by mouth once daily. MULTIVITAMIN (DAILY VITAMIN ORAL) Take 1 tablet by mouth once daily. No current facility-administered medications for this visit. ALLERGIES: ALLERGIES No Known Allergies VITALS: BP 122/64 Pulse 98 Temp 36.4 ?C (97.6 ?F) Resp 16 Wt 76 kg (167 lb 8.8 oz) SpO2 97% BMI 24.74 kg/m? PHYSICAL EXAM: GEN: NAD HEENT: EOMI, conjunctiva clear, HEART: regular rate and rhythm, no murmurs LUNGS: clear to auscultation, no wheezes or crackles, no increased WOB ABDOMEN: Soft, nondistended, no masses, no suprapubic tenderness BACK: No CVA, midline, or paraspinal tenderness. Straight leg test negative. ASSESSMENT/PLAN: 1. Pain with urination - ICD9: 788.1, ICD10: R30.9 (primary diagnosis) 2. Acute midline low back pain without sciatica - ICD9: 724.2, ICD10: M54.50 - UA DIP, URINE (POC) trace LE only. Differential discussed with patient including urinary tract infection, renal calculus, sexually transmitted infection/urethritis. He will await results of testing before treatment. - URINE CULTURE - GONORRHEA/CHLAMYDIA NAAT Seek ER evaluation for worsening back pain, blood in the urine, or fever. Ayaz Whitehead [facility]08-28-2024 History of Present illness Narrative* Ayaz Whitehead MD - 06/07/2024 12:52 PM EDT Patient presents with: Urinary Problem: pain with urination, lower back pain x 2 days HPI: Symptoms for 2 days. Dysuria: Yes Frequency: Yes Hematuria: No Discharge: No Genital lesion: No ulcers, papules, vesicles, or rash Nausea: increased reflux symptoms Fever or chills: No Back pain: midline lumbar, crampy, no radiation Abdominal pain: No Prior UTI: believes once as a child. Currently sexually active. Personal history of kidney stones: No Family history of kidney stones: sister just had a stone MEDICATIONS: Current Outpatient Medications Medication Sig omeprazole (PRILOSEC) 20 mg capsule Take 20 mg by mouth once daily. MULTIVITAMIN (DAILY VITAMIN ORAL) Take 1 tablet by mouth once daily. No current facility-administered medications for this visit. ALLERGIES: ALLERGIES No Known Allergies VITALS: BP 122/64 Pulse 98 Temp 36.4 C (97.6 F) Resp 16 Wt 76 kg (167 lb 8.8 oz) SpO2 97% BMI 24.74 kg/m PHYSICAL EXAM: GEN: NAD HEENT: EOMI, conjunctiva clear, HEART: regular rate and rhythm, no murmurs LUNGS: clear to auscultation, no wheezes or crackles, no increased WOB ABDOMEN: Soft, nondistended, no masses, no suprapubic tenderness BACK: No CVA, midline, or paraspinal tenderness. Straight leg test negative. ASSESSMENT/PLAN: 1. Pain with urination - ICD9: 788.1, ICD10: R30.9 (primary diagnosis) 2. Acute midline low back pain without sciatica - ICD9: 724.2, ICD10: M54.50 - UA DIP, URINE (POC) trace LE only. Differential discussed with patient including urinary tract infection, renal calculus, sexually transmitted infection/urethritis. He will await results of testing before treatment. - URINE CULTURE - GONORRHEA/CHLAMYDIA NAAT Seek ER evaluation for worsening back pain, blood in the urine, or fever. Ayaz Whitehead MD documented in this encounterPomerene Hospital05-22-2022 Instructions* Patient Instructions* Sveta Walker APRN.MAGAZINE JOURNALIST - 03/01/2022 1:39 PM EDT ASSESSMENT/PLAN: 1. Sore throat - ICD9: 462, ICD10: J02.9 - suspect viral vs. allergic - Alere Strep Test NEGATIVE, no culture pending - Discussed supportive care treatment with fluids, rest and analgesia. - STREP A MOLECULAR (POC) - use chloraseptic spray or CEPACOL lozenges. - Follow-up with your PCP in 3-5 days if symptoms have not improved or sooner if symptoms worsen - Discussed red flags and need for immediate medical evaluation if any occur. - Discussed supportive care treatment with fluids, rest and analgesia. - Discussed expected course of illness Sveta Walker APRN.MAGAZINE JOURNALIST SORE THROAT INSTRUCTIONS SORE THROAT OVERVIEW - Sore throat is a common problem during childhood, and is usually the result of a bacterial or viral infection. Although sore throat usually resolves without complications, it sometimes requires treatment with an antibiotic. There are some less common causes of sore throat that are serious or even life-threatening. This topic will discuss the most common causes and treatments of sore throat in children, as well as the warning signs of more serious conditions. SORE THROAT CAUSES - The most likely cause of a child's sore throat depends upon the child's age, the season, and the geographic area. While viruses are the most common cause of sore throat, bacteriaare another common cause. Bacteria and viruses are spread from one person to another through hand contact. Hands get contaminated when the sick individual touches their nose or mouth and then touchesanother person directly (wzov-ne-dpqk contact) or indirectly (tawg-dj-pvpewc, such as doorknob, telephone, toys). It is difficult to determine the cause of sore throat based upon symptoms alone; an examination andlaboratory test are recommended in most cases Viruses - There are many viruses that can cause pain and swelling of the throat. The most common include viruses that cause sore throat as part of an upper respiratory infection, such as the common cold. Other viruses that cause sore throat include influenza, adenovirus, and Yari-Aguilar virus (thecause of mononucleosis). Symptoms - Symptoms that may occur with a viral infection can include a runny nose and congestion, irritation or redness of the eyes, cough, hoarseness, soreness in the roof of the mouth, a skin rash, or diarrhea. In addition, children with viral infections may have a fever and may feel miserable. A high fever does not necessarily mean that the child has a bacterial infection. Group A streptococcus - Group A streptococcus (GAS) is the name of the bacterium that causes strep throat. Although other bacteria can cause a sore throat, GAS is the most common bacterial cause; up to 30 percent of children with a sore throat will have GAS. Strep throat usually occurs during the winter and early spring, and is most common in school-age children and their younger siblings. Symptoms - Symptoms of strep throat in children older than 3 years often develop suddenly and include fever (temperature ?100.4 F or 38 C), headache, abdominal pain, nausea, and vomiting. Other symptoms can include swollen glands in the neck, white patches of pus in the back or sides of the throat,small red spots on the roof of the mouth, and swelling of the uvula. A cough and cold are not commonly seen in children with strep throat. Strep throat is uncommon in children younger than age 2 to 3 years. However, GAS infection can occur in younger children, and may cause a runny nose and congestion that is prolonged, low-grade fever (?101 F or 38.3 C), and tender glands in the neck. Infants younger than 1 year may be fussy and havea decreased appetite and low-grade fever. SORE THROAT TREATMENT - The treatment of sore throat depends upon the cause; strep throat is treated with an antibiotic while viral pharyngitis is treated with rest, pain relievers, and other measures to reduce symptoms. Strep throat - Strep throat is usually treated with an antibiotic, such as penicillin, or an antibiotic similar to penicillin (eg, amoxicillin). Children who are allergic to penicillin will be given an alternate antibiotic. The antibiotic is usually given in pill or liquid form two or three times per day. A one-time injection is also available, and may be recommended if a child is unwilling to take an oral medication. After completing 24 hours of antibiotics, the child is no longer contagious and may return to school. Symptoms usually improve within 1 to 2 days. However, it is important for the child to finish theentire course of treatment (usually 10 days). If a child does not begin to improve or worsens within 3 days, the child should be reevaluated. Throat pain can be treated with a non-prescription pain medication, if needed. (See 'Pain medications' below.) In addition, parents should monitor their child for dehydration, which can develop if the child is not willing to drink or eat due to a sore throat. (See 'Monitor for dehydration' below.) Viral throat pain - Sore throat caused by viral infections usually last 4 to 5 days. During this time, treatments to reduce pain may be helpful but will not help to eliminate the virus. Antibiotics do not improve throat pain caused by a virus and are not recommended. A child with a viral infection is usually allowed to return to school when there has been no fever for 24 hours and the child feels well enough to pay attention. Pain medications - Throat pain can be treated with a mild pain reliever such as acetaminophen (Tylenol ) or a non-steroidal anti-inflammatory agent such as ibuprofen (Motrin ). These medications should be dosed according to weight, not age. Aspirin is not recommended for children <18 years due to the risk of a potentially serious condition known as Neville syndrome. Monitor for dehydration - Some children with a sore throat are reluctant to drink or eat due to pain. Drinking less fluid can lead to dehydration. To reduce the risk of dehydration, parents can offerwarm or cold liquids. (See 'Other interventions' below.) Signs and symptoms of mild dehydration include a slightly dry mouth, increased thirst, and decreased urine output (one wet diaper or void in six hours). Signs of moderate or severe dehydration include decreased urine output (less than one wet diaper or void in six hours), lack of tears when crying,dry mouth, and sunken eyes. A child who is moderately or severely dehydrated should be evaluated by a healthcare provider as soon as possible to determine if treatment is needed. Oral rinses- Salt-water gargles are an old stand-by for relief of throat pain. It is not clear if this treatmentis effective, but it is unlikely to be harmful. Most recipes suggest 1/4 to 1/2 teaspoon of salt per cup (8 ounces) of warm water. The water should be gargled and then spit out (not swallowed). Children younger than six to eight years are not able to gargle properly. An oral rinse composed of equal parts of diphenhydramine (Benadryl liquid) and Maalox (magnesium hydroxide, aluminum hydroxide, and simethicone) may be helpful for pain caused by a sore mouth or ulcers in the mouth. Children older than six to eight years may swish and spit (not swallow) the mixture. Sprays - Sprays containing topical anesthetics are available to treat sore throat. However, such sprays are no more effective than sucking on hard candy. In addition, a common anesthetic ingredient, benzocaine, can cause allergic reactions. We do not recommend throat sprays for children. Lozenges - A variety of medicated throat lozenges are available to relieve dryness or pain. However, it is not clear that lozenges work any better than hard candy. We do not recommend throat lozengesfor children, especially children younger than 3 to 4 years, who can choke. Sucking on hard candy may provide some relief for children older than 3 to 4 years, who are not at risk for choking. Other interventions - Other interventions include sipping warm beverages (eg, honey or lemon tea, chicken soup), cold beverages, or eating cold or frozen desserts (eg, ice cream, popsicles). These treatments are safe for children. Honey should not be given to children younger than 12 months due to the potential risk of botulism poisoning. Alternative therapies - [employer] food stores, vitamin outlets, and Internet Web sites offer alternative treatments for relief of sore throat pain. We do not recommend these treatments due to the risks of contamination with pesticides/herbicides, inaccurate labeling and dosing information, and a lack of studies showing that these treatments are safe and effective. SORE THROAT PREVENTION - Hand washing is an essential and highly effective way to prevent the spread of infection. Hands should be wet with water and plain soap, and rubbed together for 15 to 30 seconds. Special attention should be paid to the fingernails, between the fingers, and the wrists. Handsshould be rinsed thoroughly, and dried with a single use towel. Alcohol-based hand rubs are a good alternative for disinfecting hands if a sink is not available. Hand rubs should be spread over the entire surface of hands, fingers, and wrists until dry, and may be used several times. These rubs can be used repeatedly without skin irritation or loss of effectiveness. Hand rubs are available as a liquid or wipe in small, portable sizes that are easy to carry in a pocket or handbag. When a sink is available, visibly soiled hands should be washed with soap and water. Hands should be washed after coughing, blowing the nose or sneezing. While it is not always possible to limit contact with a person who is sick, avoiding touching the eyes, nose, or mouth after direct contact can help to prevent the spread of infection. In addition, tissues should be used to cover the mouth when sneezing or coughing. These used tissues should be disposed of promptly. Sneezing/coughing into the sleeve of one's clothing (at the inner elbow) is another means of containing sprays of saliva and secretions and has the advantage of not co ntaminating the hands. WHEN TO SEEK HELP - Parents of a child with throat pain and one or more of the following should contact their healthcare provider immediately: Difficulty swallowing or breathing Excessive drooling in an or young child Temperature ?101 F or 38.3 C Swelling of the neck Child is unable or unwilling to drink or eat Voice sounds muffled Child has a stiff neck or difficulty opening the mouth WHERE TO GET MORE INFORMATION - Your child's healthcare provider is the best source of information for questions and concerns related to your child's medical problem. This article will be updated as needed every four months on our web site ([email or web address]). Information below was obtained from Up to date Last literature review version 19.2: February 2011 This topic last updated: May 28, 2010 documented in this encounterPomerene Hospital05-22-2022 History of Present illness Narrative* Sveta Walker APRN.PEDRO - 03/01/2022 1:35 PM EDT Subjective HPI Brandon Jamil is a 27 year old male who presents with sore throat x 3 days. His nephew recentlyhad strep throat and he was around him 5 days ago. He has not had a fever. He has had some post nasal drainage. He has not taken any medication for this at home. Review of Systems Constitutional: Negative for chills and fever. HENT: Positive for congestion and sore throat. Negative for ear pain. Respiratory: Negative for cough. Cardiovascular: Negative. Skin: Negative for rash. BP 118/62 Pulse 92 Temp 36.9 C (98.4 F) Resp 16 Wt 75.7 kg (166 lb 12.8 oz) SpO2 99% BMI 24.63 kg/m PAST MEDICAL HISTORY Diagnosis Date NEGATIVE MEDICAL HISTORY PAST SURGICAL HISTORY Procedure Laterality Date CIRCUMCISION ESOPHAGOGASTRODUODENOSCOPY TRANSORAL DIAGNOSTIC 10/18/2018 EGD ALLERGIES Patient has no known allergies. MEDICATIONS omeprazole (PRILOSEC) 20 mg capsule Take 20 mg by mouth once daily. MULTIVITAMIN (DAILY VITAMIN ORAL) Take 1 tablet by mouth once daily. Qxgghmpcskiinjk-Stbvlwxcu-JX (BROMFED DM) 2-30-10 mg/5 mL syrup Take 10 mL by mouth four times daily as needed. Omeprazole 40 mg capsule Take 1 capsule by mouth once daily. On empty stomach FAMILY HISTORY Problem Relation Age of Onset other (Kidney problems) Father Hypertension Maternal Grandmother other (Kidney problems) Maternal Grandmother Heart Maternal Grandfather Hypertension Maternal Uncle Social History Tobacco Use Smoking status: Never Smoker Smokeless tobacco: Never Used Tobacco comment: dad outside Substance Use Topics Alcohol use: No Comment: rarely Drug use: No Objective Physical Exam Vitals and nursing note reviewed. Constitutional: Appearance: Normal appearance. HENT: Right Ear: Tympanic membrane, ear canal and external ear normal. Left Ear: Tympanic membrane, ear canal and external ear normal. Nose: Nose normal. Mouth/Throat: Mouth: Mucous membranes are moist. Pharynx: Oropharynx is clear. Uvula midline. Posterior oropharyngeal erythema present. No oropharyngeal exudate. Cardiovascular: Rate and Rhythm: Normal rate and regular rhythm. Heart sounds: Normal heart sounds. Pulmonary: Effort: Pulmonary effort is normal. No respiratory distress. Breath sounds: Normal breath sounds. No wheezing or rales. Musculoskeletal: Cervical back: Neck supple. Lymphadenopathy: Cervical: No cervical adenopathy. Skin: General: Skin is warm and dry. Findings: No erythema or rash. Neurological: Mental Status: He is alert. ASSESSMENT/PLAN: 1. Sore throat - ICD9: 462, ICD10: J02.9 - suspect viral vs. allergic - Alere Strep Test NEGATIVE, no culture pending - Discussed supportive care treatment with fluids, rest and analgesia. - STREP A MOLECULAR (POC) - use chloraseptic spray or CEPACOL lozenges. - Follow-up with your PCP in 3-5 days if symptoms have not improved or sooner if symptoms worsen - Discussed red flags and need for immediate medical evaluation if any occur. - Discussed supportive care treatment with fluids, rest and analgesia. - Discussed expected course of illness Sveta Walker APRN.MAGAZINE JOURNALIST documented in this encounterPomerene HospitalEvaluation note* Diagnosis Sore throat- Primary Acute pharyngitis documented [facility]* Diagnosis Pain with urination- Primary Renal colic Acute midline low back pain without sciatica [facility] Diagnosis Urinary frequency- Primary Penile irritation Other specified disorder of penis H/O chlamydia infection Personal history of other infectious and parasitic disease [facility]* Diagnosis Scrotal irritation- Primary Unspecified disorder of male genital organs Penile irritation Other specified disorder of penis Urinary frequency H/O chlamydia infection Personal history of other infectious and parasitic disease Myalgia of pelvic floor documented in this [facility]* Diagnosis Procedure not carried out- Primary Procedure not carried out for other reasons documented [facility]* Diagnosis Burning with urination- Primary Dysuria documented in this encounter [facility] noteNo assessment information availableWMercy Hospital Work Phone: Hospital Discharge instructions Additional Instructions Use Grabiel wrap for support. Continue ice and elevation at home. Take Tylenol or ibuprofen as needed for pain. Follow-up with orthopedics in 1 week if not improving. 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 No January 25, 2025 10:36pm Reason for Referral Specialty Diagnoses / Procedures Referred By Arabella davis Referred To Contact Urology Diagnoses Urinary frequency Penile irritation H/O chlamydia infection Procedures CONSULT TO UROLOGY OFFICE/OUTPATIENT [facility] 60 MINUTES Thiago Lange APRN.MAGAZINE JOURNALIST [address] [place] [address] Referral ID Status Reason Start Date Expiration Date Visits Requested Visits Authorized [id number] Authorized PCP Requested Referral 06/25/2024 06/25/2025 1 1 Chief Complaint and Reason for Visit Chief Complaint Admit Date L KNEE INJURY January 25, 2025 9:0 9pm Additional Source Comments (unrecognized sect ion and content) No Status Records FoundNo Status Records FoundNo Status Records FoundNo Status Records Found INFORMATION SOURCE (unrecogn ized section and content) DATE CREATED AUTHOR 10/19/2018 [facility] DATE CREATED AUTHOR AUTHOR'S ORGANIZ ATION 12/20/2019 [facility] DATE CREATED AUTHOR AUTHOR'S ORGANIZ ATION 02/01/2025 [facility] DATE CREATED AUTHOR AUTHOR'S ORGANIZ ATION 03/06/2025 [facility] Source Comments (unrecognize d section and content) In the event this informatio n is protected by the Federal Confidentiality of Alcohol and Drug Abuse Patient Records regulations: The Federal rules restrict any use of the information to criminally investigate or prosecute any alcohol or drug abuse patient.[facility] the event this information is protected by the Federal Confidentiality of Alcohol and Drug Abuse Patient Records regulations: The Federal rules restrict any use of the information to criminally investigate or prosecute any alcohol or drug abuse patient.[facility] the event this information is protected by the Federal Confidentiality of Alcohol and Drug Abuse Patient Records regulations: The Federal rules restrict any use of the information to criminally investigate or prosecute any alcohol or drug abuse patient.[facility] Hospital[facility] the event this information is protected by the Federal Confidentiality of Alcohol and Drug Abuse Patient Records regulations: The Federal rules restrict any use of the information to criminally investigate or prosecute any alcohol or drug abuse patient.[facility] HospitalIn the event this information is protected by the Federal Confidentiality of Alcohol and Drug Abuse Patient Records regulations: The Federal rules restrict any use of the information to criminally investigate or prosecute any alcohol or drug abuse patient.[facility] HospitalIn the event this information is protected by the Federal Confidentiality of Alcohol and Drug Abuse Patient Records regulations: The Federal rules restrict any use of the information to criminally investigate or prosecute any alcohol or drug abuse patient.[facility] HospitalIn the event this information is protected by the Federal Confidentiality of Alcohol and Drug Abuse Patient Records regulations: The Federal rules restrict any use of the information to criminally investigate or prosecute any alcohol or drug abuse patient.[facility] HospitalIn the event this information is protected by the Federal Confidentiality of Alcohol and Drug Abuse Patient Records regulations: The Federal rules restrict any use of the information to criminally investigate or prosecute any alcohol or drug abuse patient.[facility] Reason for Visit (unrecogniz ed section and content) Reason Comments Sore Throat nasal drainage x 3 d ays Specialty Diagnoses / Procedures Referred By Contac t Referred To Contact Internal Medicine / [facility] Diagnoses Sore throat due to virus sore throat Procedures URGENT CARE Dennis Castle, BUILDING ILLUMINATING ENGINEER.MAGAZINE JOURNALIST [address] [place] [address] [facility] [address] [place] [address] Referral ID Status Reason Start Date Expiration Date V isits Requested Visits Authorized [id number] Pending Review 03/01/2022 05/30/2022 1 1 Reason Comments Urinary Problem pain with urination, lower back pain x 2 days Reason Comments Results Reason Comments Abdominal Pain 2-3 days Reason Comments STD Urinary frequency, i rritation. Specialty Diagnoses / Procedures Referred By Contac t Referred To Contact Urology Diagnoses Urinary frequency Penile irritation H/O chlamydia infection Procedures CONSULT TO UROLOGY OFFICE/OUTPATIENT [facility] 60 MINUTES Thiago Lange, BUILDING ILLUMINATING ENGINEER.MAGAZINE JOURNALIST [address] [place] [address] Referral ID Status Reason Start Date Expiration Date V isits Requested Visits Authorized [id number] Closed PCP Requested Referral 06/25/2024 06/25/2025 1 1 Care Teams (unrecognized sec tion and content) Team Status: Active Member Role Status Dates No Primary Care Physician Primary Care Provider Active Team Status: Inactive Member Role Status Dates No Primary Care Physician Primary Care Provider Active Start: January 25, 2025 End: January 25, 2025 Arnel De León MD Emergency Provider Active Star t: January 25, 2025 End: January 25, 2025 Goals (unrecognized section and content) Goals may be documented in a n alternate section FOR RECORDS PERTAINING TO PATIENTS WHO ARE OR HAVE BEEN ENROLLED IN A CHEMICAL DEPENDENCY/SUBSTANCEABUSE PROGRAM, SOME INFORMATION MAY BE OMITTED. This clinical summary was aggregated from multiple sources. Caution should be exercised in using it in the provision of clinical care. This summary normalizes information from multiple sources, and as a consequence, information in this document may materially change the coding, format and clinical context of patient data. In addition, data may be omitted in some cases. CLINICAL DECISIONS SHOULD BE BASED ON THE PRIMARY CLINICAL RECORDS. [employer] [facility]. provides no warranty or guarantee of the accuracy or completeness of information in this document.
--- NOTE | 2025-03-17 09:00 | MRI_ITS ---
PROCEDURE: Left LOWER EXT JOINT ONLY (ROUTINE) 03/17/2025 REASON FOR EXAM: PAIN, TWIST, EVAL ACL TEAR VS MENISCUS. Initial encounter. TECHNIQUE: MRI of the left lower Extremity. Multiplanar and multisequence images were obtained without IV contrast administration. COMPARISON: COMPARISON : None. FINDINGS: Bone Marrow: Unremarkable Effusion: Joint effusion there is [id number] Soft Tissues: Unremarkable Ligaments and Tendons: ACL tear is present. PCL is intact. There is tear of the body of the lateral meniscus and posterior horn with a fragment flipped anterior and medial Tiny corner fracture of the posterior body of the medial meniscus is suspected. See sagittal T2 fat-sat sequence, images 5-8 Lateral collateral ligament demonstrates hyperintensity in the anterior aspect suggesting a tear of the lateral collateral ligament. Mild hyperintense/isointense signal is seen adjacent to the lateral collateral ligament complex. MRI/Lower Ext Joint Only (Routine) IMPRESSION: ACL tear, high-grade. Tear of the lateral meniscus with flipped torn fragment Lateral collateral ligament tear. Small corner tear of the superior margin of the posterior horn of the medial me niscus. Reading Location[facility]
== END | disposition home or self-care (01) ==
PROVIDERS: Referring Provider Orthopaedic Surgery Sports Medicine; Visit Provider Orthopaedic Surgery Sports Medicine
DX: S89.92XA Unspecified injury of left lower leg, initial encounter (principal)
CPT/HCPCS: 73721

== ENCOUNTER 2025-05-02 07:10 | Day surgery (SDC) | payer OTHER, SELFPAY ==
[2025-05-02] VITALS (12 sets, daily range): BP systolic 104–129; BP diastolic 60–98; PULSE 84–122; RESP 12–20; TEMP 36–37.1; O2SAT 95–100; BMI 28.3
--- OUTSIDE RECORDS SUMMARY | 2025-05-02 07:18 | XMS RPT_ITS | CCD ---
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 Name Role Phone SEAN SWAN Unavailable Unavailable SEAN SWAN Unavailable Unavailable Unavailable Primary Care Provider Unavailabl e Unavailable Primary Care Provider Unavailabl e Care Physician, No Primary Primary Care Provider Unavailable Arnel De León MD Emergency Provider YAJAIRA ARNDT Attending Unavailable DINA ROLLINS Attending Unavailable THIAGO LANGE Referring Unavailable DINA ROLLINS Referring Unavailable Arnel De León MD Attending Provider Care Physician, No Primary Referring Provider Un available Indra Mooney MD Attending Provider Indra Mooney MD Referring Provider Care Physician, No Primary Primary Care Unava ilable Roque Gonzales Attending Unavailable Care Physician, No Primary Primary Care Unava ilable Indra Mooney Attending Unavailable Care Physician, No Primary Referring Unava ilable Indra Mooney Attending Unavailable Care Physician, No Primary Primary Care Unava ilable Care Physician, No Primary Primary Care Unava ilable Care Physician, No Primary Referring Unava ilable Indra Mooney Attending Unavailable Care Physician, No Primary Primary Care Unava ilable Indra Mooney Attending Unavailable Indra Mooney Referring Unavailable Care Physician, No Primary Primary Care Unava ilable Arnel De León Attending Unavailable Medications Current Medications Medication Drug Class(es) [...] on above: Take 1 tablet by tyree th once daily. nystatin 100 unt/mg topical powder (3 sources) Polyene Antifungal Start: 08-14-2024 nystatin (NYSTOP) powder Indications: Scrotal irritation Apply to groin daily as needed. 15 g 08/14/2024 Active Completed/Discontinued Medications Medication Drug Class(es) Dates Sig (Normalized) Sig (Original) brompheniramine maleate 0.4 mg/ml / dextromethorphan hydrobromide 2 mg/ml / pseudoephedrine hydrochloride 6 mg/ml oral solution (2 sources) alpha-Adrenergic Agonist, Uncompetitive J-oulcpl-X-aspartat e Receptor Antagonist, Sigma-1 Agonist Start: 11-19-2018 [...] once daily. Take 1 capsule by mo uth once daily. On empty stomach Problems Active Problems Problem Classification Problem Date Documented Da te Episodic/Chronic Abdominal pain (1 source) Epigastric pain; Translations: [Epigastric pain] Onset: 10-18-2018 Episodic Joint disorders and dislocations; trauma-related (8 sources) Other tear of lateral meniscus, current injury, left knee, initial encounter; Translations: [Tear of lateral meniscus of left knee] 03-22-2025 Episodic Other connective tissue disease (1 source) Myalgia of pelvic floor; Translations: [Myalgia, other site] 08-14-2024 Episodic Other infections; including parasitic (2 sources) History of chlamydial infection; Translations: [Personal history of other infectious and parasitic diseases] 06-25-2024 Episodic Other injuries and conditions due to external causes (5 sources) Injury of left knee; Translations: [Unspecified injury of left lower leg, initial encounter] 01-25-2025 Episodic Other injuries and conditions due to external causes (1 source) Unspecified injury of left lower leg, initial encounter; Translations: [Unspecified injury of left lower leg, initial encounter] Onset: 03-23-2025 Episodic Other male genital disorders (2 sources) Irritation of penis; Translations: [Other specified disorders of penis] 06-25-2024 Chronic Other male genital disorders (1 source) Other specified disorders of penis; Translations: [Penile irritation] Onset: 08-14-2024 Chronic Other male genital disorders (1 source) Disorder of male genital organ; Translations: [Other specified disorders of the male genital organs] 08-14-2024 Episodic Other non-traumatic joint disorders (4 sources) Effusion of joint of left knee; Translations: [Effusion, left knee] 01-29-2025 Episodic Other upper respiratory infections (1 source) Sore throat symptom; Translations: [Acute pharyngitis, unspecified] Episodic Residual codes; unclassified (1 source) Procedure not done; Translations: [Procedure and treatment not carried out, unspecified reason] 08-15-2024 Episodic Spondylosis; intervertebral disc disorders; other back problems (1 source) Acute low back pain; Translations: [Acute midline low back pain without sciatica] 06-07-2024 Episodic Sprains and strains (12 sources) Strain of muscle, fascia and tendon [...] that caused by tuberculosis or sexually transmitteddisease) (4 sources) Acute conjunctivitis of bilateral eyes caused by chemical substance; Translations: [Acute toxic conjunctivitis, bilateral] Onset: 09-06-2024 08-23-2024 Episodic Other infections; including parasitic (1 source) Personal history of other infectious and parasitic diseases; Translations: [H/O chlamydia infection] Onset: 08-14-2024 Episodic Results Test Name Value Interpretation Reference Range Facil ity Orthopedic Visit Reporton Orthopedic Visit Report [facility] [address] [place] [address] [address] [place] [address] OFFICE VISIT Date of Service: 03/22/25 MR#: [id number] Acct: [id number] Name: BRANDON JAMIL Rep #: [id number] : 1995 Provider: Dr. Indra baker MD Age/Sex: 30/M Location: [facility] [place] Status: Signed Intake Vital Signs 01/29/25 13:05 03/20/25 09:27 Height 5 ft 9 in 5 ft 9 in Weight: 199 lb 8 oz BMI 29.5 Intake Visit Reasons: LEFT KNEE Chief Complaint: Left Knee Pain Is patient in pain?: Yes (Left knee) Pain scale (1-10): 1 Allergies No Known Allergies Allergy (Verified 03/22/25 09:15) Medications ???Medication ???Instructions ???Recorded ???Confirmed ???Type No Known/Unobtainable [No Known 05/16/14 03/22/25 History Home Medications] [facility] Medical History Sprain of lateral collateral ligament of left elbow Tear of lateral meniscus of left knee Tear of medial meniscus of left knee Left ACL tear Effusion, left knee Social History Smoking Status: Never smoker alcohol intake: never HPI LEFT KNEE Details: This documentation accurately reflects the service provided and the decisions made by me, Dr. Indra Mooney MD 03/22/25 0804. Part of today???s visit was documented by [ ], acting as scribe. BRANDON JAMIL is a 30 year old M here today for FU L knee MRI. Supplemental Info [facility] Imaging Services [address] [facility] [place], [place] [address] Lower Ext Joint Only (Routine) MR#: [id number] Acct: [id number] Name: BRANDON JAMIL Rep #: [id number] : 1995 M 30 From: Thor Arana DO PCP: Care Physician,No Primary Status: REG CLI Study: Lower Ext Joint Only (Routine) Date of Exam: 03/17/25 Exam# [id number] Ordering Dr: Indra Mooney MD PROCEDURE: Left LOWER EXT JOINT ONLY (ROUTINE) 03/17/2025 REASON FOR EXAM: PAIN, TWIST, EVAL ACL TEAR VS MENISCUS. Initial encounter. TECHNIQUE: MRI of the left lower Extremity. Multiplanar and multisequence images were obtained without IV contrast administration. COMPARISON: COMPARISON : None. FINDINGS: Bone Marrow: Unremarkable Effusion: Joint effusion there is mauh-nm-dixlpdcv Soft Tissues: Unremarkable Ligaments and Tendons: ACL tear is present. PCL is intact. There is tear of the body of the lateral meniscus and posterior horn with a fragment flipped anterior and medial Tiny corner fracture of the posterior body of the medial meniscus is suspected. See sagittal T2 fat- sat sequence, images 5-8 Lateral collateral ligament demonstrates hyperintensity in the anterior aspect suggesting a tear of the lateral collateral ligament. Mild hyperintense/isointen se signal is seen adjacent to the lateral collateral ligament complex. MRI/Lower Ext Joint Only (Routine) IMPRESSION: ACL tear, high-grade. Tear of the lateral meniscus with flipped torn fragment Lateral collateral ligament tear. Small corner tear of the superior margin of the posterior horn of the medial meniscus. Reading [facility] Coding Level of Care Code Off vis,est,level 4 Diagnoses Left ACL tear S83.512A Tear of medial meniscus of left knee S83.242A Tear of lateral meniscus of left knee S83.282A Sprain of lateral collateral ligament of left elbow S53.432A Assessment and Plan Assessment and Plan (1) Left ACL tear: Status: Acute Plan: 30-year-old man with left knee ACL tear and tears of the medial meniscus and lateral meniscus with a flipped bucket-handle fragment. Overall I recommend surgery for this. Without surgery more higher chance of damage to the cartilage further tears of the meniscus long-term instability of the knee and other problems. That being said surgery has its own set of risks. Went over the diagnosis prognosis different graft types fixation methods and recovery up to 9 months before going back to full sport activities or other dangerous activities. Crutches and a brace for the first 6 weeks with the weightbearing in full extension due to the meniscus repairs. He understands no further questions and wishes to go ahead with left knee arthroscopy, anterior cruciate ligament reconstruction, quadriceps tendon autograft, repair of medial and lateral meniscus. Pros and cons risks and benefits were discussed with the patient including but not limited to infection, pain, stiffness, bleeding, damage to surrounding structures, neurovascular injury, recurrence or rete (more content not included)... Normal [facility] Lower Ext Joint Only (Routin e)on 03-17-2025 Lower Ext Joint Only (Routine) [facility] Imaging Services [address] [place] [address] Lower Ext Joint Only (Routine) MR#: [id number] Acct: [id number] Name: BRANDON JAMIL Rep #: [id number] : 1995 M 30 From: Thor Arana DO PCP: Care Physician,No Primary Status: REG CLI Study: Lower Ext Joint Only (Routine) Date of Exam: 0 03/17/25 Exam# [id number] Ordering Dr: Indra Mooney MD PROCEDURE: Left LOWER EXT JOINT ONLY (ROUTINE) 03/17/2025 REASON FOR EXAM: PAIN, TWIST, EVAL ACL TEAR VS MENISCUS. Initial encounter. TECHNIQUE: MRI of the left lower Extremity. Multiplanar and multisequence images were obtained without IV contrast administration. COMPARISON: COMPARISON : None. FINDINGS: Bone Marrow: Unremarkable Effusion: Joint effusion there is iugh-an-exjwwamf Soft Tissues: Unremarkable Ligaments and Tendons: ACL tear is present. PCL is intact. There is tear of the body of the lateral meniscus and posterior horn with a fragment flipped anterior and medial Tiny corner fracture of the posterior body of the medial meniscus is suspected. See sagittal T2 fat- sat sequence, images 5-8 Lateral collateral ligament demonstrates hyperintensity in the anterior aspect suggesting a tear of the lateral collateral ligament. Mild hyperintense/isointen se signal is seen adjacent to the lateral collateral ligament complex. MRI/Lower Ext Joint Only (Routine) IMPRESSION: ACL tear, high-grade. Tear of the lateral meniscus with flipped torn fragment Lateral collateral ligament tear. Small corner tear of the superior margin of the posterior horn of the medial meniscus. Reading Location: [facility] CC: Dr. Indra Mooney MD; No Primary Care Physician Cv Rn: Signed Normal [facility] Magnetic resonance imaging r eportOrdered By: Thor Arana on 03-17-2025 Study report [facility] Imaging Services [address] [place] [address] Lower Ext Joint Only (Routine) MR#: [id number] Acct: [id number] Name: BRANDON JAMIL Rep #: [id number] : 1995 M 30 From: Pet er Peer DO PCP: Care Physician,No Primary Status: REG CLI Study:Lower Ext Joint Only (Routine) Date of Exam: 03/17/25 Exam# [id number] Ordering Dr: Indra Mooney MD PROCEDURE: Left LOWER EXT JOINT ONLY (ROUTINE) 03/17/2025 REASON FOR EXAM: PAIN, TWIST, EVAL ACL TEAR VS MENISCUS. Initial encounter. TECHNIQUE: MRI of the left lower Extremity. Multiplanar and multisequence images were obtained without IV contrast administration. COMPARISON: COMPARISON : None. FINDINGS: Bone Marrow: Unremarkable Effusion: Joint effusion there is czsd-qd-qitgeunk Soft Tissues: Unremarkable Ligaments and Tendons: ACL tear is present. PCL is intact. There is tear of the body of the lateral meniscus and posterior horn with a fragment flipped anterior and medial Tiny corner fracture of the posterior body of the medial meniscus is suspected. See sagittal T2 fat-sat sequence, images 5-8 Lateral collateral ligament demonstrates hyperintensity in the anterior aspect suggesting a tear of the lateral collateral ligament. Mild hyperintense/isointen se signal is seen adjacent to the lateral collateral ligament complex. MRI/Lower Ext Joint Only (Routine) IMPRESSION: ACL tear, high-grade. Tear of the lateral meniscus with flipped torn fragment Lateral collateral ligament tear. Small corner tear of the superior margin of the posterior horn of the medial meniscus. Reading Location[facility] CC: Dr. Indra Mooney MD; No Primary Care Physician ~ Cv Rn: Signed [facility] CNOVon 02-28-2025 [facility] Office Visit ([facility] ) BRANDON JAMIL ([id number]) 1995 M Date Time Provider Department 02/28/25 8:30 AM YAJAIRA ARNDT [facility] During your visit today, we recorded the following information about you: Temperature Pulse Respiration Blood pressure 97.9 degrees 77/minute 16/minute 120/67 Yajaira Arndt PA-C 02/28/2025 9:11 AM [facility] SUBJECTIVE: I have reviewed and [...] PA-C This note was partially generated using [employer] voice recognition system, any errors noted are unintentional and are due to this technology. Patient declines printed AVS. Prefers to look at AVS in mychart. History and Record Review External record(s) reviewed: prior outpatient record and prior labs/imaging. Findings from review of prior labs/imaging: Previous Renal Function Panel Reviewed No results within last 365 days. Differential Diagnoses - Shingles is more likely for the following reason(s): suggested by HANDP Disposition The patient was discharged. OTC Medications were advised: Yajaira Starr PA-C 02/28/2025 9:10 AM Signed Shingles You have been diagnosed with shingles. Shingles is also called "varicella zoster." This happens from the "chicken pox" virus. About 1 out of 5 of [...] of shingl (more content not included)... Normal [facility] Orthopedic Visit Reporton Orthopedic Visit Report [facility] [address] [place] [address] OFFICE VISIT Date of Service: 01/29/25 MR#: [id number] Acct: [id number] Name: BRANDON JAMIL Rep #: [id number] : 1995 Provider: Dr. Indra baker MD Age/Sex: 30/M Location: [facility] [place] Status: Signed Intake Vital Signs 01/25/25 21:10 [...] [No Known 05/16/14 01/29/25 History Home Medications] [facility] Medical History (Updated 01/29/25 @ 13:20 by Indra Mooney MD) Effusion, left knee Social History (Updated 01/29/25 @ 13:06 by Katiuska Petty) Smoking Status: Never smoker alcohol intake: never HPI LEFT KNEE Details: This documentation accurately reflects the service provided and the decisions made by me, Dr. Indra Mooney MD 01/29/25 0936. Part of today???s visit was documented by [ ], acting as scribe. BRANDON JAMIL is a 30 year old M here today for left knee injury. Twisted playing basketball 4 days ago. contact injury. 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 twisted the knee. immedi ate swelling. no pop but hyper flexion and valgus force. no prior injury or surgery. got crutches. per ED "30-year-old male who denies significant past medical history [...] head or loss of consciousness. No other injury." Supplemental Info [facility] Services [address] [place], [place] [address] Knee 4 or More Views MR#: [id number] Acct: [id number] Name: BRANDON JAMIL Rep #: [id number] : 1995 M 30 From: Delmar Fritz DO PCP: Care Physician,No Primary Status: PRE ER Study: Knee 4 or More Views Date of Exam: 01/25/25 Exam# [id number] Ordering Dr: Provider,Ed P. PROCEDURE: KNEE 4 [...] No Illiotibia (more content not included)... Normal [facility] Emergency Department Summary on 01-25-2025 Emergency Department Summary [facility] Medical Records Department [address] [place] [address] Emergency Department Summary 01/25/25 MR#: [id number] Acct: [id number] Name: BRANDON JAMIL Rep #: [id number] [...] pain, new or worsening symptoms. Print Language: Iranian Disposition Disposition: Home, Self Care What to do if you have Problems For any increased pain, shortness of breath, bleeding, nausea or vomiting, chest pain, or any unexpected problems, contact your Primary Care Provider. Call [facility] ([phone]) or report to the closest Emergency Room. Call 911 if necessary. 01/25/25 3282 Cosigner Signature (if applicable): CC: No Primary Care Physician Signed Normal [facility] Knee 4 or More Viewson 01-25 Knee 4 or More Views [facility] Imaging Services [address] [place] [address] Knee 4 or More Views MR#: [id number] Acct: [id number] Name: BRANDON JAMIL Rep #: [id number] : 1995 M 30 From: Delmar Fritz DO PCP: Care Physician,No Primary Status: PRE ER Study: Knee 4 or More Views Date of Exam: 01/25/25 Exam# [id number] Ordering Dr: Provider,Ed P. PROCEDURE: KNEE 4 [...] ED PHYSICIAN PROVIDER; No Primary Care Physician Cv Rn: Signed Normal [facility] CNOVon 08-15-2024 CNOV Office Visit ([facility] ) BRANDON JAMIL ([id number]) 1995 M Date Time Provider Department 08/15/24 9:00 AM [facility] During your visit today, we recorded the following information about you: Dennis Castle APRN.FISHING BOAT CAPTAIN 08/15/2024 9:39 AM Signed Nontoxic-appearing male presents urgent care chief complaint chemical burn. Patient states splashed a unknown chemical in his eye at work. Has had significant discomfort and redness. On examination patient had significant redness. With mechanism of injury recommended patient be emergently seen the ED for further evaluation care. Will be sent [facility]. Dennis Castle APRN.FISHING BOAT CAPTAIN Allergies As of Date: 08/15/2024 (No Known [...] Status:Closed by DENNIS CASTLE on 08/15/24 Normal [facility] Emergency Department Summary on 08-15-2024 Emergency Department Summary [facility] Medical Records Department [address] [place] [address] Emergency Department Summary 08/15/24 MR#: [id number] Acct: [id number] Name: BRANDON JAMIL Rep #: [id number] [...] Jesus Melchor (more content not included)... [facility] ([facility] ) BRANDON JAMIL ([id number]) 1995 M Date Time Provider Department 08/14/24 3:00 PM DINA ROLLINS During your visit today, we recorded the following information about you: Weight Height 81.4 kg 1.749 m Dina Rollins APRN.CNP 08/21/2024 7:59 PM Addendum [facility] MALE PATIENT - [...] found for: PSA No results found for: "TESTOST", "TESTFREE" No results found for: HBA1C No results found for: TSH Creatinine Date Value Ref Range Status 08/26/2017 0.96 0.73 - 1.22 mg/dL Final PHYSICAL EXAMINATION: The sensitive examination was discussed with the Patient or Patient's Authorized Fretted Instruments Inspector. As applicable, any other physician, advance practice provider, medical student, or other health professional student that will be observing or involved in the sensitive examination for educational or training purposes was discussed with the Patient or Authorized Fretted Instruments Inspector. The Patient or Authorized Fretted Instruments Inspector has agreed to proceed with the sensitive [...] W/REFLEX; Fu (more content not included)... Normal [facility] HIV 1+2 Ab IA Qlon 4 HIV 1 and 2 Ab IA.rapid Nom (S/P/Bld) [facility] Comment on above: Test not indicated. HIV 1+2 Ab+HIV1 p24 Ag IA Ql Non-Reactive Nonreactive [facility] HIV immunoassay testing algorithm interpretation (S/P/Bld) [Interp] [facility] Comment on above: No evidence of HIV-1 or HIV-2 infection. Should recent infection be suspected, repeat testing may be considered 2-3 weeks after this draw. [place] Rev. Code 3701.243(E): This information has been [...] release of HIV test results or diagnoses. [facility] HIV 1 and 2 Ab IA.rapid Nom (S/P/Bld) Normal [facility] Comment on above: Order Comment: Speci men Type: BLOOD SPECIMENOrdering Facility: [facility] Address: [address] [place] [address] Result Comment: Test not indicated. Performed By: #### 3 1201-7, 27539-3 ####[facility] [id number] [place] [address] [place] HIV 1+2 Ab+HIV1 p24 Ag IA Ql Non-Reactive Normal Nonreactive [facility] Comment on above: Order Comment: Speci men Type: BLOOD SPECIMENOrdering Facility: [facility] Address: [address] [place] [address] Performed By: #### 3 1201-7, 49005-0 ####[facility] [id number] [place] [address] [place] HIV immunoassay testing algorithm interpretation (S/P/Bld) [Interp] Normal [facility] Comment on above: Order Comment: Speci men Type: BLOOD SPECIMENOrdering Facility: [facility] Address: [address] [place] [address] Result Comment: No e vidence of HIV-1 or HIV-2 infection. Should recent infection be suspected, repeat testing may be considered 2-3 weeks after this draw. [place] Rev. Code 3701.243(E): This information has been [...] or diagnoses. Performed By: #### 3 1201-7, 57521-9 ####[facility] [id number] [place] [address] [place] Reagin and Treponema pallidu m IgG and IgM [Interp]on 08-14-2024 T. pallidum IgG+IgM IA Ql (S) Non-Reactive Nonreactive [facility] T. pallidum IgG+IgM IA Ql (S) Non-Reactive Normal Nonreactive [facility] Comment on above: Order Comment: Speci men Type: BLOOD SPECIMENOrdering Facility: [facility] Address: [address] [place] [address] Performed By: #### 3 1201-7, 29515-5 ####[facility] [id number] [place] [address] [place] Reagin+T pallidum IgG+IgM Se rPl-Impon 08-14-2024 Reagin and Treponema pallidum IgG and IgM [Interp] Cannot exclude recent Treponemal infection if specimen collected within 7-10 days after appearance of suspect lesions or 2-3 weeks after an exposure. Clinical correlation is required. Normal [facility] Comment on above: Order Comment: Speci men Type: BLOOD SPECIMENOrdering Facility: [facility] Address: [address] [place] [address] Performed By: #### 3 1201-7, 74357-2 ####[facility] [id number] [place] [address] [place] SYPHILIS TREPONEMAL W/REFLEX on 08-14-2024 Reagin and Treponema pallidum IgG and IgM [Interp] Cannot exclude recent Treponemal infection if specimen collected within 7-10 days after appearance of suspect lesions or 2-3 weeks after an exposure. Clinical correlation is required. [facility] UA DIP, URINE (POC)on 2023 BILIRUBIN UA (POCT) Negative Negative [facility] CLARITY UA (POCT) Clear [facility] COLOR UA (POCT) Yellow [facility] GLUCOSE UA (POCT) Negative Negative mg/dL [facility] Hemoglobin Ql (U) Trace-intact Abnormal Negative [facility] Interpretation and review of laboratory results Abnormal [facility] KETONE UA (POCT) Negative Negative [facility] LEUKOCYTES UA (POCT) Negative Negative [facility] NITRITE UA (POCT) Negative Negative [facility] PH UA (POCT) 5.5 4.5 - 8.0 [facility] Protein Ql (U) Negative Negative mg/dL [facility] SPECIFIC GRAVITY UA (POCT) >=1.030 1.005 - 1.030 [facility] UROBILINOGEN UA (POCT) 0.2 Normal E.U./dL [facility] Location:[facility], [address] [facility] [facility], [place], [address] [facility] UROGENITAL UREAPLASMA AND MY COPLASMA SPECIES BY PCR, FOR GENITAL, RECTAL, URINE SAMPLESon 08-14-2024 M GENITALIUM PCR Not detected Normal [facility] Comment on above: Order Comment: Speci men Type: URINE SPECIMENOrdering Facility: [facility] Address: [address] [place] [address] Result Comment: INTE RPRETIVE INFORMATION: Urogenital Ureaplasma and Mycoplasma Species by PCR A negative result does not rule out the presence of PCR inhibitors in the patient specimen or test-specific nucleic acid in concentrations below the level of detection by this test. This test was developed and its performance characteristics determined by [facility]. It has not been cleared or approved by the [place] Food and Drug Administration. This test was performed in a CLIA certified laboratory and is intended for clinical purposes. Performed By: [facility] [address] [place] [address] Hand Gluer And Slicer: Padilla Tran MD, PhD CLIA Number: [id number] Performed By: #### U RMPCR ####[employer] LABORATORIESCLIA [id number] [place] [address] MYCOPLAS HOMINIS PCR Not detected Normal [facility] Comment on above: Order Comment: Speci men Type: URINE SPECIMENOrdering Facility: [facility] Address: [address] [place] [address] Performed By: #### U RMPCR ####[facility]IESCLIA [id number] [place] [address] UR PARVUM PCR Not detected Normal [facility] Comment on above: Order Comment: Speci men Type: URINE SPECIMENOrdering Facility: [facility] Address: [address] [place] [address] Performed By: #### U RMPCR ####[facility]IESCLIA [id number] [place] [address] UR UREALYTICUM PCR Not detected Normal [facility] Comment on above: Order Comment: Speci men Type: URINE SPECIMENOrdering Facility: [facility] Address: [address] [place] [address] Performed By: #### U RMPCR ####[facility]IESCLIA [id number] [place] [address] UR/MYCO SOURCE Urine Normal [facility] Comment on above: Order Comment: Speci men Type: URINE SPECIMENOrdering Facility: [facility] Address: [address] [place] [address] Performed By: #### U RMPCR ####[facility]IESCLIA [id number] [place] [address] Urinalysis complete panel (U )on 08-14-2024 Bacteria LM.HPF (Urine sed) [#/Area] Negative Negative /HPF [facility] Bilirubin Ql (U) Negative Negative [facility] Clarity (Unsp spec) Clear Clear [facility] Color (U) Yellow Yellow [facility] Epithelial cells LM.HPF (Urine sed) [#/Area] None Seen /HPF [facility] Glucose Test strip (U) [Mass/Vol] Negative Negative [facility] Hemoglobin Ql (U) Negative Negative [facility] Hyaline casts (Urine sed) [#/Area] 0 /[LPF] 0 /LPF [facility] Ketones Ql (U) Negative Negative [facility] Leukocyte esterase Test strip Ql (U) Negative Negative [facility] Nitrite Ql (U) Negative Negative [facility] pH (U) 5.5 [pH] NINF - 8.5 [facility] Protein (U) [Mass/Vol] Negative Negative [facility] RBC LM.HPF (Urine sed) [#/Area] 0-2 /HPF 0-2 /HPF [facility] Specific gravity (U) [Rel density] 1.024 1.005 - 1.030 [facility] Urobilinogen Ql (U) 0.2 EU/dL 0.2-1.0 EU/dL [facility] WBC LM.HPF (Urine sed) [#/Area] 0-5 /HPF 0-5 /HPF [facility] This test was developed and its performance characteristics determined by [facility] [place] ([facility]). It has not been cleared or approved by the FDA. [facility] is regulated under CLIA as qualified to perform high-complexity testing. This test is used for clinical purposes. It should not be regarded as investigational or for research. [facility] Bacteria LM.HPF (Urine sed) [#/Area] Negative Normal Negative [facility] Comment on above: Order Comment: Speci men Type: URINE SPECIMENOrdering Facility: [facility] Address: [address] [place] [address] Performed By: #### 2 4356-8 ####[facility] LABIA [id number] [place] [address] [place] Bilirubin Ql (U) Negative Normal Negative [facility] Comment on above: Order Comment: Speci men Type: URINE SPECIMENOrdering Facility: [facility] Address: [address] [place] [address] Performed By: #### 2 4356-8 ####[facility] LABCLIA [id number] [place] [address] [place] Clarity (Unsp spec) Clear Normal Clear [facility] Comment on above: Order Comment: Speci men Type: URINE SPECIMENOrdering Facility: [facility] Address: [address] [place] [address] Performed By: #### 2 4356-8 ####[facility] LABCLIA [id number] [place] [address] [place] Color (U) Yellow Normal Yellow [facility] Comment on above: Order Comment: Speci men Type: URINE SPECIMENOrdering Facility: [facility] Address: [address] [place] [address] Performed By: #### 2 4356-8 ####[facility] LABCLIA [id number] [place] [address] [place] Epithelial cells LM.HPF (Urine sed) [#/Area] None Seen Normal [facility] Comment on above: Order Comment: Speci men Type: URINE SPECIMENOrdering Facility: [facility] Address: [address] [place] [address] Performed By: #### 2 4356-8 ####[facility] LABCLIA [id number] [place] [address] [place] Glucose Test strip (U) [Mass/Vol] Negative Normal Negative [facility] Comment on above: Order Comment: Speci men Type: URINE SPECIMENOrdering Facility: [facility] Address: [address] [place] [address] Performed By: #### 2 4356-8 ####[facility] LABCLIA [id number] [place] [address] [place] Hemoglobin Ql (U) Negative Normal Negative [facility] Comment on above: Order Comment: Speci men Type: URINE SPECIMENOrdering Facility: [facility] Address: [address] [place] [address] Performed By: #### 2 4356-8 ####[facility] LABCLIA [id number] [address] [place] Hyaline casts (Urine sed) [#/Area] 0 /[LPF] Normal 0 /LPF [facility] Comment on above: Order Comment: Speci men Type: URINE SPECIMENOrdering Facility: [facility] Address: [address] [place] [address] Performed By: #### 2 4356-8 ####[facility] LABCLIA [id number] [place] [address] [place] Ketones Ql (U) Negative Normal Negative [facility] Comment on above: Order Comment: Speci men Type: URINE SPECIMENOrdering Facility: [facility] Address: [address] [place] [address] Performed By: #### 2 4356-8 ####[facility] LABCLIA [id number] [place] [address] [place] Leukocyte esterase Test strip Ql (U) Negative Normal Negative [facility] Comment on above: Order Comment: Speci men Type: URINE SPECIMENOrdering Facility: [facility] Address: [address] [place] [address] Performed By: #### 2 4356-8 ####[facility] LABCLIA [id number] [place] [address] [place] Nitrite Ql (U) Negative Normal Negative [facility] Comment on above: Order Comment: Speci men Type: URINE SPECIMENOrdering Facility: [facility] Address: [address] [place] [address] Performed By: #### 2 4356-8 ####[facility] LABCLIA [id number] [place] [address] [place] pH (U) 5.5 [pH] Normal <8.5 [facility] Comment on above: Order Comment: Speci men Type: URINE SPECIMENOrdering Facility: [facility] Address: [address] [place] [address] Performed By: #### 2 4356-8 ####[facility] LABCLIA [id number] [place] [id number] [place] Protein (U) [Mass/Vol] Negative Normal Negative [facility] Comment on above: Order Comment: Speci men Type: URINE SPECIMENOrdering Facility: [facility] Address: [address] [place] [address] Performed By: #### 2 4356-8 ####[facility] [id number] [place] [address] [place] RBC LM.HPF (Urine sed) [#/Area] 0-2 /HPF Normal 0-2 /HPF [facility] Comment on above: Order Comment: Speci men Type: URINE SPECIMENOrdering Facility: [facility] Address: [address] [place] [address] Performed By: #### 2 4356-8 ####[facility] [id number] [place] [address] [place] Specific gravity (U) [Rel density] 1.024 Normal 1.005-1.030 [facility] Comment on above: Order Comment: Speci men Type: URINE SPECIMENOrdering Facility: [facility] Address: [address] [place] [address] Performed By: #### 2 4356-8 ####[facility] [id number] [place] [address] [place] Urobilinogen Ql (U) 0.2 EU/dL Normal 0.2-1.0 EU/dL [facility] Comment on above: Order Comment: Speci men Type: URINE SPECIMENOrdering Facility: [facility] Address: [address] [place] [address] Performed By: #### 2 4356-8 ####[facility] [id number] [place] [address] [place] WBC LM.HPF (Urine sed) [#/Area] 0-5 /HPF Normal 0-5 /HPF [facility] Comment on above: Order Comment: Speci men Type: URINE SPECIMENOrdering Facility: [facility] Address: [address] [place] [address] Performed By: #### 2 4356-8 ####[facility] LABCLIA [id number] [place] [address] [place] Bacteria Ur Culton Bacteria identified Cx Nom (U) ORGANISM ID: 1 <10,000 CFU/ml Normal urogenital jarrell Normal [facility] Comment on above: Performed By: #### 6 30-4 ####[facility] LABCLIA [id number] [address] [place] C. trachomatis+N. gonorrhoea e DNA THEO+probe Ql (Unsp spec)on 06-25-2024 C. trachomatis rRNA THEO+probe Ql (Unsp spec) Negative Normal Negative for Chlamydia trachomatis by amplificaton [facility] Comment on above: Order Comment: Speci men Type: URINE SPECIMENOrdering Facility: [facility] Address: [address] [place] [address] Performed By: #### 3 6902-5 ####[facility] LABIA [id number] [address] N. gonorrhoeae rRNA THEO+probe Ql (Unsp spec) Negative Normal Negative for Neisseria gonorrhoeae by amplification [facility] Comment on above: Order Comment: Speci men Type: URINE SPECIMENOrdering Facility: [facility] Address: [address] [place] [address] Performed By: #### 3 6902-5 ####[facility] LABIA [id number] [address] [place] CNOVon 06-25-2024 CNOV Office Visit (WALKBR ) BRANDON JAMIL ([id number]) 1995 M Date Time Provider Department 06/25/24 12:45 PM THIAGO LANGE WALKBR During your visit today, we recorded the following information about you: Temperature Pulse Respiration Blood pressure 98.4 degrees 73/minute 16/minute 125/74 Weight 76.2 kg Thiago Lange APRN.FISHING BOAT CAPTAIN 06/25/2024 1:50 PM Signed Subjective Pt was seen 2.5 weeks ago at another [facility], tested positive for Chlamydia and treated with Doxy x 7 days. States dysuria resolved but all other symptoms have remained, concerned still has chlamydia. C/o urinary frequency and urgency, suprapubic pain, bilateral flank pain and penis and testicles feel "uncomfortable" and "irritated" and red x 2.5 weeks. States took all of the Doxy and partner was also treated, refrained from intercourse for > 7 days while both were treated. Partner does not have any symptoms. Denies any new partners. Denies hx of herpes. The history is provided by the patient. No foreign language teacher was used. Review of Systems Constitutional: Negative [...] not present. Comments: No scrotal erythema noted. 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 Skin: General: Skin is warm and dry. [...] similar symptoms. (more content not included)... Normal [facility] TRICHOMONAS VAGINALIS NAATon 06-25-2024 T. vaginalis DNA THEO+probe Ql (Unsp spec) Negative Normal Negative for Trichomonas vaginalis by amplification [facility] Comment on above: Order Comment: Speci men Type: URINE SPECIMENOrdering Facility: [facility] Address: [address] [place] [address] Performed By: #### T RVAMP ####[facility] LABCLIA [id number] [place] [address] [place] UA DIP, URINE (POC)on 2023 BILIRUBIN UA (POCT) Negative Negative [facility] CLARITY UA (POCT) Clear [facility] COLOR UA (POCT) Yellow [facility] GLUCOSE UA (POCT) Negative Negative mg/dL [facility] Hemoglobin Ql (U) Negative Negative [facility] Interpretation and review of laboratory results Abnormal [facility] KETONE UA (POCT) Negative Negative mg/dL [facility] LEUKOCYTES UA (POCT) Negative Negative [facility] NITRITE UA (POCT) Negative Negative [facility] PH UA (POCT) 8.5 Abnormal 4.5 - 8.0 [facility] Protein Ql (U) Negative Negative mg/dL [facility] SPECIFIC GRAVITY UA (POCT) 1.015 1.005 - 1.030 [facility] UROBILINOGEN UA (POCT) 0.2 Normal E.U./dL [facility] Location:[facility], [address] [place] [address], [place], [place], [address] [place] [address] POINT [facility] C[facility] Myron 06-09-2024 PEDRON Telephone ([facility]) BRANDON JAMIL ([id number]) 1995 M Date Time Provider Department 06/09/24 SVETA WALKER During your visit today, we recorded the following information about you: Pratibha Mcneal LPN 06/09/2024 8:40 AM Signed ----- Message from Sveta Walker APRN.FISHING BOAT CAPTAIN sent at 06/09/2024 7:11 AM EDT ----- Please advise patient the urine culture was negative. He should complete treatment for chlamydia as prescribed. MALINDA Tinoco Brandi, LPN 06/09/2024 9:29 AM Signed Patient given [...] Encounter Status:Closed by PRATIBHA MCNEAL on 06/09/24 [facility] Myron 06-08-2024 UMU Telephone ([facility]) BRANDON JAMIL ([id number]) 1995 M Date Time Provider Department 06/08/24 [facility] During your visit today, we recorded the following information about you: Howard Martin, DARLINE 06/08/2024 7:37 AM Signed Please contact patient and let him know he tested positive for chlamydia. He is negative for gonorrhea. He needs to notify all sexual partners. I have sent in doxycycline to [facility] pharmacy. Advised patient to take all this [...] Status:Closed by NAYAN VELASQUEZ on 06/08/24 Normal [facility] Bacteria Ur Culton Bacteria identified Cx Nom (U) CULTURE, URINE: No growth (<1,000 CFU/ml) Normal [facility] Comment on above: Performed By: #### 6 30-4 ####[facility] LABCLIA [id number] [place] [address] [place] C. trachomatis+N. gonorrhoea e DNA THEO+probe Ql (Unsp spec)on 06-07-2024 C. trachomatis rRNA THEO+probe Ql (Unsp spec) Positive Abnormal Negative for Chlamydia trachomatis by amplificaton [facility] Comment on above: Order Comment: Speci men Type: URINE SPECIMENOrdering Facility: [facility] Address: [address] [place] [address] Performed By: #### 3 6902-5 ####[facility] LABIA [id number] [address] [place] N. gonorrhoeae rRNA THEO+probe Ql (Unsp spec) Negative Normal Negative for Neisseria gonorrhoeae by amplification [facility] Comment on above: Order Comment: Speci men Type: URINE SPECIMENOrdering Facility: [facility] Address: [address] [place] [address] Performed By: #### 3 6902-5 ####[facility] LABIA [id number] [place] [address] [place] CNOVon 06-07-2024 CNOV Office Visit (UCTR ) BRANDON JAMIL ([id number]) 1995 M Date Time Provider Department 06/07/24 12:45 PM [facility] During your visit today, we recorded [...] without sciatica [M54.50] Order(s):UA DIP, URINE (POC) [[id number]] Order #: [id number]. #:[id number] URINE CULTURE [SQURCUL] Order #: [id number]. #:[id number] GONORRHEA/CHLAMYDIA NAAT [SQGCCT] Order #: [id number]. #:[id number] Prescriptions as of 06/07/2024 - omeprazole (PRILOSEC) [...] Service: OFFICE/OUTPATIENT ESTABLISHED MOD MDM 30 MIN [05582] Encounter Status:Closed by AYAZ [facility] on 06/07/24 Normal [facility] UA DIP, URINE (POC)on 2023 BILIRUBIN UA (POCT) Negative Negative [facility] CLARITY UA (POCT) Cloudy [facility] COLOR UA (POCT) Yellow [facility] GLUCOSE UA (POCT) Negative Negative mg/dL [facility] Hemoglobin Ql (U) Negative Negative [facility] Interpretation and review of laboratory results Abnormal [facility] KETONE UA (POCT) Negative Negative mg/dL [facility] LEUKOCYTES UA (POCT) Trace Abnormal Negative [facility] NITRITE UA (POCT) Negative Negative [facility] PH UA (POCT) 5.5 4.5 - 8.0 [facility] Protein Ql (U) Negative Negative mg/dL [facility] SPECIFIC GRAVITY UA (POCT) 1.020 1.005 - 1.030 [facility] UROBILINOGEN UA (POCT) 0.2 Normal E.U./dL [facility] Location:[facility], [place], [place], [id number] [place] [address] PO[facility] STREP A MOLECULAR (POC)on Procedural Control Valid [facility] Strep A (POCT) Negative Negative [facility] .Auto Diffon 12-20-2019 Ammonia (P) [Mass/Vol] 0.40 10 3/mcL Normal 0.15-1.00 [facility] Comment on above: Performed By: #### C BC ADIFF, ANEU #### [address] [address] #### BMP, GFR, ACETA, ALC, VIRY #### [address] [address] Basophils (Bld) [#/Vol] 0.00 10 3/mcL Normal 0.00-0.19 [facility] Comment on above: Performed By: #### Sweta BCBRIGHTIFF, ANEU #### [place] [address] #### BMP, GFR, ACETA, ALC, VIRY #### [address] [address] Basophils/100 WBC (Bld) 0.4 % Normal 0.0-2.5 [facility] Comment on above: Performed By: #### Sweta BC ADIFF, ANEU #### [place] [address] #### BMP, GFR, ACETA, ALC, VIRY #### [address] [address] Eosinophils (Bld) [#/Vol] 0.10 10 3/mcL Normal 0.00-0.40 [facility] [place] Comment on above: Performed By: #### Sweta BC, ADIFF, ANEU #### [address] [address] #### BMP, GFR, ACETA, ALC, VIRY #### [address] [address] Eosinophils/100 WBC (Bld) 1.4 % Normal 0.0-7.0 [facility] [place] Comment on above: Performed By: #### C BC, ADIFF, ANEU #### [place] [address] #### BMP, GFR, ACETA, ALC, VIRY #### [address] [address] Lymphocytes (Bld) [#/Vol] 0.90 10 3/mcL Normal 0.77-3.85 [facility] Comment on above: Performed By: #### C BC, ADIFF, ANEU #### [place] [address] #### BMP, GFR, ACETA, ALC, VIRY #### [address] [address] Lymphocytes/100 WBC (Bld) 13.6 % Normal 10.0-50.0 [facility] [place] Comment on above: Performed By: #### C BC, ADIFF, ANEU #### [place] [address] #### BMP, GFR, ACETA, ALC, VIRY #### [address] [address] Monocytes/100 WBC (Bld) 6.1 % Normal 1.7-13.0 [facility] [place] Comment on above: Performed By: #### C BC, ADIFF, ANEU #### [place] [address] #### BMP, GFR, ACETA, ALC, VIRY #### [address] [address] Neutrophils/100 WBC (Bld) 78.5 % Normal 37.0-80.0 [facility] [place] Comment on above: Performed By: #### C BC, ADIFF, ANEU #### [place] [address] #### BMP, GFR, ACETA, ALC, VIRY #### [address] [address] .GFRon 12-20-2019 GFR 104 ml/min/1.73sqm Normal [facility] ([place]) Comment on above: Result Comment: [...] By: #### C BC, ADIFF, ANEU #### [address] [address] #### BMP, GFR, ACETA, ALC, VIRY #### [address] [address] GFR Non- 86 ml/min/1.73sqm Normal [facility] Comment on above: Result Comment: [...] By: #### C BC, ADIFF, ANEU #### [address] [address] #### BMP, GFR, ACETA, ALC, VIRY #### [address] [address] .NEUABSon 12-20-2019 Neutrophils (Bld) [#/Vol] 5.50 10 3/mcL Normal 2.85-6.16 [facility] [place] Comment on above: Performed By: #### C BC, ADIFF, ANEU #### [place] [address] #### BMP, GFR, ACETA, ALC, VIRY #### [place] [address] ACETAon 12-20-2019 Acetaminophen [Mass/Vol] 0.0 mcg/mL Low 10.0-30.0 [facility] [place] Comment on above: Performed By: #### C BC, ADIFF, ANEU #### [place] [address] #### BMP, GFR, ACETA, ALC, VIRY #### [place] [address] Luciana 12-20-2019 Ethanol Level <3 Normal 0-3 [facility] ([place]) Comment on above: Performed By: #### C BC, ADIFF, ANEU #### [place] [address] #### BMP, GFR, ACETA, ALC, VIRY #### [place] [address] BMPon 12-20-2019 Calcium [Mass/Vol] 9.3 mg/dL Normal 8.4-10.2 [facility] ([place]) Comment on above: Performed By: #### C BC, ADIFF, ANEU #### [place] [address] #### BMP, GFR, ACETA, ALC, VIRY #### [place] [address] Chloride [Moles/Vol] 100 mmol/L Normal 98-107 [facility] ([place] Comment on above: Performed By: #### C BC, ADIFF, ANEU #### [place] [address] #### BMP, GFR, ACETA, ALC, VIRY #### [address] [address] CO2 [Moles/Vol] 30 mmol/L High 22-29 [facility] ([place]) Comment on above: Performed By: #### C BC, ADIFF, ANEU #### [address] [address] #### BMP, GFR, ACETA, ALC, VIRY #### [address] [address] Creatinine [Mass/Vol] 1.08 mg/dL Normal 0.70-1.30 [facility] ([place] Comment on above: Performed By: #### C BC, ADIFF, ANEU #### [place] [address] #### BMP, GFR, ACETA, ALC, VIRY #### [address] [address] Electrolyte Balance 10.0 mEq/L Normal [facility] ([place] Comment on above: Performed By: #### C BC, ADIFF, ANEU #### [address] [address] #### BMP, GFR, ACETA, ALC, VIRY #### [address] [address] Glucose [Mass/Vol] 149 mg/dL High 70-105 [facility] ([place]) Comment on above: Performed By: #### C BC, ADIFF, ANEU #### [place] [address] #### BMP, GFR, ACETA, ALC, VIRY #### [address] [address] Potassium [Moles/Vol] 3.7 mmol/L Normal 3.5-5.1 [facility] ([place] Comment on above: Performed By: #### C BC, ADIFF, ANEU #### [address] [address] #### BMP, GFR, ACETA, ALC, VIRY #### [address] [address] Sodium [Moles/Vol] 140 mmol/L Normal 136-145 [facility] ([place]) Comment on above: Performed By: #### C BC, ADIFF, ANEU #### [address] [address] #### BMP, GFR, ACETA, ALC, VIRY #### [address] [address] Urea nitrogen [Mass/Vol] 12 mg/dL Normal 7-18 [facility] [place] Comment on above: Performed By: #### C BC, ADIFF, ANEU #### [place] [address] #### BMP, GFR, ACETA, ALC, VIRY #### [place] [address] Urea nitrogen/Creatinin e [Mass ratio] 11 ratio Normal 7-27 [facility] ([place] Comment on above: Performed By: #### C BC, ADIFF, ANEU #### [place] [address] #### BMP, GFR, ACETA, ALC, VIRY #### [place] [address] CBCon 12-20-2019 Erythrocyte distribution width (RBC) [Ratio] 13.0 % Normal 11.5-14.5 [facility] [facility] ([place] Comment on above: Performed By: #### C BC, ADIFF, ANEU #### [place] [address] #### BMP, GFR, ACETA, ALC, VIRY #### [address] [address] Hematocrit (Bld) [Volume fraction] 47.0 % Normal 42.0-52.0 [facility] ([place] Comment on above: Performed By: #### C BC, ADIFF, ANEU #### [place] [address] #### BMP, GFR, ACETA, ALC, VIRY #### [place] [address] Hemoglobin (Bld) [Mass/Vol] 15.7 G/dL Normal 14.0-18.0 [facility] ([place] Comment on above: Performed By: #### C BC, ADIFF, ANEU #### [place] [address] #### BMP, GFR, ACETA, ALC, VIRY #### [place] [address] MCH (RBC) [Entitic mass] 29.2 pg Normal 27.0-31.2 [facility] [place] Comment on above: Performed By: #### C BC, ADIFF, ANEU #### [place] [address] #### BMP, GFR, ACETA, ALC, VIRY #### [place] [address] MCHC (RBC) [Mass/Vol] 33.4 G/dL Normal 31.8-35.4 [facility] [place] Comment on above: Performed By: #### C BC, ADIFF, ANEU #### [place] [address] #### BMP, GFR, ACETA, ALC, VIRY #### [place] [address] MCV (RBC) [Entitic vol] 87.3 fL Normal 80.0-94.0 [facility] [place] Comment on above: Performed By: #### C BC, ADIFF, ANEU #### [place] [address] #### BMP, GFR, ACETA, ALC, VIRY #### [place] [address] Platelet mean volume (Bld) [Entitic vol] 7.2 fL Low 7.4-10.4 [facility] [place] Comment on above: Performed By: #### C BC, ADIFF, ANEU #### [place] [address] #### BMP, GFR, ACETA, ALC, VIRY #### [address] [address] Platelets (Bld) [#/Vol] 302 10 3/mcL Normal 130-400 [facility] [place] Comment on above: Performed By: #### C BC, ADIFF, ANEU #### [address] [address] #### BMP, GFR, ACETA, ALC, VIRY #### [place] [address] RBC (Bld) [#/Vol] 5.39 10 6/mcL Normal 4.04-6.13 [facility] ([place]) Comment on above: Performed By: #### C BC, ADIFF, ANEU #### [place] [address] #### BMP, GFR, ACETA, ALC, VIRY #### [address] [address] WBC (Bld) [#/Vol] 7.00 10 3/mcL Normal 4.60-10.80 [facility] ([place] Comment on above: Performed By: #### C BC, ADIFF, ANEU #### [place] [address] #### BMP, GFR, ACETA, ALC, VIRY #### [address] [address] SALon 12-20-2019 Salicylate Level 0.2 mg/dL Low 2.8-20.0 [facility] [place] Comment on above: Performed By: #### C BC, ADIFF, ANEU #### [place] [address] #### BMP, GFR, ACETA, ALC, VIRY #### [place] [address] TOXSCon 12-20-2019 U Ampheta (AO) Negative Normal [facility] ([place]) Comment on above: Performed By: #### T OXSC #### [place] [id number] U Shira (AO) Negative Normal [facility] ([place]) Comment on above: Performed By: #### T OXSC #### Bennie [address] [address] U Zachary (AO) Negative Normal [facility] ([place]) Comment on above: Performed By: #### T OXSC #### Bennie [address] [address] U Cannab (AO) Positive Normal [facility] ([place]) Comment on above: Performed By: #### T OXSC #### Bennie [address] [address] U Cocaine (AO) Negative Normal [facility] ([place]) Comment on above: Performed By: #### T OXSC #### Bennie [address] [address] U Methadone (AO) Negative [facility] ([place]) Comment on above: Performed By: #### T OXSC #### Bennie [address] [address] U PCP (AO) Negative [facility] ([place] Comment on above: Performed By: #### T OXSC #### Bennie [address] [address] U TCA (AO) Negative [facility] ([place]) Comment on above: Performed By: #### T OXSC #### [address] [address] Urine Opiates (AO) Negative [facility] ([place]) Comment on above: Performed By: #### T OXSC #### [address] [address] Vital Signs Date Time Vital Sign Value Performing Clinician Facility 03-20-2025 09:27-0400 Body height 175.26 cm No Primary Care Physician [facility] 01-29-2025 13:05-0400 Body mass index (BMI) [Ratio] 29.5 kg/m2 No Primary Care Physician [facility] 01-29-2025 13:05-0400 Body weight 90.49 kg No Primary Care Physician [facility] 01-25-2025 21:10-0400 Body height 175.26 cm No Primary Care Physician [facility] 01-25-2025 21:10-0400 Body mass index (BMI) [Ratio] 29 kg/m2 No Primary Care Physician [facility] 01-25-2025 21:10-0400 Body temperature 97 [degF] No Primary Care Physician [facility] 01-25-2025 21:10-0400 Body weight 89 kg No Primary Care Physician [facility] 01-25-2025 21:10-0400 Diastolic blood pressure 79 mm[Hg] No Primary Care Physician [facility] 01-25-2025 21:10-0400 Heart rate 107 /min No Primary Care Physician [facility] 01-25-2025 21:10-0400 Respiratory rate 17 /min No Primary Care Physician [facility] 01-25-2025 21:10-0400 SaO2% (BldA) [Mass fraction] 100 % No Primary Care Physician [facility] 01-25-2025 21:10-0400 Systolic blood pressure 121 mm[Hg] No Primary Care Physician [facility] 08-14-2024 14:50-0500 Body height 174.9 cm Dina Rollins MEDICARE COORDINATOR.[employer] Work Phone: [facility] 08-14-2024 14:50-0500 Body mass index (BMI) [Ratio] 26.61 kg/m2 Dina Rollins MEDICARE COORDINATOR.[employer] Work Phone: [facility] 08-14-2024 14:50-0500 Body weight 81.4 kg Dina Rollins MEDICARE COORDINATOR.[employer] Work Phone: [facility] 06-25-2024 12:55-0400 Body mass index (BMI) [Ratio] 24.81 kg/m2 Thiago Lange MEDICARE COORDINATOR.[employer] Work Phone: [facility] 06-25-2024 12:55-0400 Body temperature 98.4 [degF] Thiago Lange MEDICARE COORDINATOR.[employer] Work Phone: [facility] 06-25-2024 12:55-0400 Body weight 76.2 kg Thiago Lange MEDICARE COORDINATOR.[employer] Work Phone: [facility] 06-25-2024 12:55-0400 Diastolic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 Pratibha Mcneal LPN [facility]-30-[facility] Miscellaneous Notes* Telephone Encounter - Pratibha Mcneal LPN - 06/09/2024 9:29 AM EDT Patient given results and verbalized understanding of instructions given. Pratibha Mcneal LPN * Telephone Encounter - Pratibha Mcneal LPN - 06/09/2024 8:40 AM EDT ----- Message from Sveta Walker APRN.FISHING BOAT CAPTAIN sent at 06/09/2024 7:11 AM EDT ----- Please advise patient the urine culture was negative. He should complete treatment for chlamydia as prescribed. Sveta Walker APRN.FISHING BOAT CAPTAIN documented in this encounterCity Hospital08-30-2024 Telephone encounter Note * Telephone Encounter - Pratibha Mcneal LPN - 06/09/2024 8:40 AM EDT ----- Message from Sveta Walker APRN.FISHING BOAT CAPTAIN sent at 06/09/2024 7:11 AM EDT ----- Please advise patient the urine culture was negative. He should complete treatment for chlamydia as prescribed. Sveta Walker APRN.FISHING BOAT CAPTAIN [facility]08-29-20[facility] Telephone encounter Note* Telephone Encounter - Nayan Velasquez MA - 06/08/2024 8:33 AM EDT Patient notified of results, verbalized understanding of instructions given. Nayan Velasquez MA [facility]08-29-20[facility] Miscellaneous Notes* Telephone Encounter - Nayan [...] partners. I have sent in doxycycline to [facility] pharmacy. Advisedpatient to take all this medication and finish it as prescribed. No sexual intercourse for 7 days after completing treatment. documented in this encounterCity Hospital08-29-2024 Telephone encounter Note * Telephone Encounter - Howard Martin PA - 06/08/2024 7:36 AM EDT Please contact patient and let him know he tested positive for chlamydia. He is negative for gonorrhea. He needs to notify all sexual partners. I have sent in doxycycline to [facility] pharmacy. Advisedpatient to take all this medication and finish it as prescribed. No sexual intercourse for 7 days after completing treatment. [facility]08-[facility]-2024 NoteHNO ID: [id number] Author: AYAZ WHITEHEAD MD Service: ? Author [...] blood in the urine, or fever. Ayaz Whitehead, [facility]08-28-2024 History of Present illness Narrative* [...] fever. Ayaz Whitehead MD documented in this encounterCity Hospital05-22-2022 Instructions* Patient Instructions* Sveta Walker APRN.PEDRO - 03/01/2022 1:39 PM EDT ASSESSMENT/PLAN: 1. [...] Discussed expected course of illness Sveta Walker APRN.FISHING BOAT CAPTAIN SORE THROAT INSTRUCTIONS SORE THROAT OVERVIEW - [...] or mouth and then touchesanother person directly (sccu-um-nxad contact) or indirectly (bkzg-ue-cejqsd, such as doorknob, telephone, toys). It is [...] risk of botulism poisoning. Alternative therapies - Health food stores, vitamin outlets, and Internet Web [...] every four months on our web site ([email or web address]). Information below was obtained from "Up to date" Last literature review version 19.2: February 2011 This topic last updated: May 28, 2010 documented in this encounterCity Hospital05-22-2022 History of Present illness Narrative* Sveta [...] Take 1 tablet by mouth once daily. Bymysxqxkaqffgv-Cbtfmlktf-OO (BROMFED DM) 2-30-10 mg/5 mL syrup Take [...] Discussed expected course of illness Sveta Walker APRN.PEDRO documented [facility]* Diagnosis Sore throat- Primary Acute pharyngitis documented in this encounter [facility]* Diagnosis Pain with urination- Primary Renal colic Acute midline low back pain without sciatica documented in this encounter [facility]* Diagnosis Urinary frequency- Primary Penile irritation Other specified disorder of penis H/O chlamydia infection Personal history of other infectious and parasitic disease documented in this encounter [facility]* Diagnosis Scrotal irritation- Primary Unspecified disorder of male genital organs Penile irritation Other specified disorder of penis Urinary frequency H/O chlamydia infection Personal history of other infectious and parasitic disease Myalgia of pelvic floor documented in this encounter [facility]* Diagnosis Procedure not carried out- Primary Procedure not carried out for other reasons documented in this encounter [facility]* Diagnosis Burning with urination- Primary Dysuria documented in this encounter [facility] noteNo assessment information availableWBerger Hospital Work Phone: Hospital Discharge instructions Additional Instructions Use Grabiel wrap for support. Continue ice and elevation at home. Take Tylenol or ibuprofen as needed for pain. Follow-up with orthopedics in 1 week if not improving. 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 No January 25, 2025 10:36pm Reason for Referral Specialty Diagnoses / Procedures Referred By Arabella davis Referred To Contact Urology Diagnoses Urinary frequency Penile irritation H/O chlamydia infection Procedures CONSULT TO UROLOGY OFFICE/OUTPATIENT [facility] [place] 60 MINUTES Thiago Lange, ANEESH.FISHING BOAT CAPTAIN [address] [place] [address] Referral ID Status Reason Start Date Expiration Date Visits Requested Visits Authorized [id number] Authorized PCP Requested Referral 06/25/2024 06/25/2025 1 1 Chief Complaint and Reason for Visit Chief Complaint Admit Date L KNEE INJURY January 25, 2025 9:0 9pm Chief Complaint Admit Date L KNEE INJURY January 25, 2025 9:0 9pm LEFT KNEE January 29, 2025 1:0 1pm LEFT KNEE INJURY March 17, 2025 8:35a m LEFT KNEE March 22, 2025 9:10 am Reason for Visit Admit Date Effusion, left knee January 29, 2025 1:0 1pm Injury of knee, left January 29, 2025 1: 01pm Left ACL tear March 22, 2025 9:10 am Sprain of lateral collateral ligament of left elbow March 22, 2025 9:10am Tear of lateral meniscus of left knee Ju ne 2024 9:10am Tear of medial meniscus of left knee Luca e 2024 9:10am Additional Source Comments (unrecognized sect ion and content) No Status Records FoundNo Status Records FoundNo Status Records FoundNo Status Records Found INFORMATION SOURCE (unrecogn ized section and content) DATE CREATED AUTHOR 10/19/2018 [facility] DATE CREATED AUTHOR AUTHOR'S ORGANIZ ATION 12/20/2019 [facility] ([place]) DATE CREATED AUTHOR AUTHOR'S ORGANIZ ATION 03/06/2025 [facility] DATE CREATED AUTHOR AUTHOR'S ORGANIZ ATION 04/13/2025 [facility] Source Comments (unrecognize d section and content) In the event this informatio n is protected by the Federal Confidentiality of Alcohol and Drug Abuse Patient Records regulations: The Federal rules restrict any use of the information to criminally investigate or prosecute any alcohol or drug abuse patient.City HospitalIn the event this information is protected by the Federal Confidentiality of Alcohol and Drug Abuse Patient Records regulations: The Federal rules restrict any use of the information to criminally investigate or prosecute any alcohol or drug abuse patient.City HospitalIn the event this information is protected by the Federal Confidentiality of Alcohol and Drug Abuse Patient Records regulations: The Federal rules restrict any use of the information to criminally investigate or prosecute any alcohol or drug abuse patient.City HospitalIn the event this information is protected by the Federal Confidentiality of Alcohol and Drug Abuse Patient Records regulations: The Federal rules restrict any use of the information to criminally investigate or prosecute any alcohol or drug abuse patient.City HospitalIn the event this information is protected by the Federal Confidentiality of Alcohol and Drug Abuse Patient Records regulations: The Federal rules restrict any use of the information to criminally investigate or prosecute any alcohol or drug abuse patient.City HospitalIn the event this information is protected by the Federal Confidentiality of Alcohol and Drug Abuse Patient Records regulations: The Federal rules restrict any use of the information to criminally investigate or prosecute any alcohol or drug abuse patient.City HospitalIn the event this information is protected by the Federal Confidentiality of Alcohol and Drug Abuse Patient Records regulations: The Federal rules restrict any use of the information to criminally investigate or prosecute any alcohol or drug abuse patient.City HospitalIn the event this information is protected by the Federal Confidentiality of Alcohol and Drug Abuse Patient Records regulations: The Federal rules restrict any use of the information to criminally investigate or prosecute any alcohol or drug abuse patient.[facility] Reason for Visit (unrecogniz ed section and content) Reason Comments Sore Throat nasal drainage x 3 d ays Specialty Diagnoses / Procedures Referred By Contac t Referred To Contact Internal Medicine / [facility] Diagnoses Sore throat due to virus sore throat Procedures URGENT CARE Dennis Castle, MEDICARE COORDINATOR.FISHING BOAT CAPTAIN [address] [place] [address] [facility] [address] [place] [address] Referral ID Status Reason Start Date Expiration Date V isits Requested Visits Authorized [id number] Pending Review 03/01/2022 05/30/2022 1 1 Reason Comments Urinary Problem pain with urination, lower back pain x 2 days Reason Comments Results Reason Comments Abdominal Pain 2-3 days Reason Comments STD Urinary frequency, i rritation. Specialty Diagnoses / Procedures Referred By Contac t Referred To Contact Urology Diagnoses Urinary frequency Penile irritation H/O chlamydia infection Procedures CONSULT TO UROLOGY OFFICE/OUTPATIENT [facility] [place] 60 MINUTES Thiago Lange, ANEESH.FISHING BOAT CAPTAIN [address] [place] [address] Referral ID Status Reason Start Date Expiration Date V isits Requested Visits Authorized [id number] Closed PCP Requested Referral 06/25/2024 06/25/2025 1 [...] January 25, 2025 End: January 25, 2025 Team Status: Inactive Member Role Status Dates No Primary Care Physician Primary Care Provider Active Start: January 25, 2025 End: January 25, 2025 Arnel De León MD Attending Provider Active Star t: January 25, 2025 End: January 25, 2025 Arnel De León MD Emergency Provider Active Star t: January 25, 2025 End: January 25, 2025 Team Status: Inactive Member Role Status Dates No Primary Care Physician Primary Care Provider Active Start: January 29, 2025 End: January 29, 2025 No Primary Care Physician Referring Provider Active Start: January 29, 2025 End: January 29, 2025 Indra Mooney MD Attending Provider Active St art: January 29, 2025 End: January 29, 2025 Team Status: Active Member Role Status Dates No Primary Care Physician Primary Care Provider Active Start: March 17, 2025 Indra Mooney MD Attending Provider Active St art: March 17, 2025 Indra Mooney MD Referring Provider Active St art: March 17, 2025 Team Status: Inactive Member Role Status Dates No Primary Care Physician Primary Care Provider Active Start: March 22, 2025 End: March 22, 2025 No Primary Care Physician Referring Provider Active Start: March 22, 2025 End: March 22, 2025 Indra Mooney MD Attending Provider Active St art: March 22, 2025 End: March 22, 2025 Team Status: Inactive Member Role Status Dates No Primary Care Physician Primary Care Provider Active Start: March 17, 2025 End: March 17, 2025 Indra Mooney MD Attending Provider Active St art: March 17, 2025 End: March 17, 2025 Indra Mooney MD Referring Provider Active St art: March 17, 2025 End: March 17, 2025 Goals (unrecognized section and content) Goals may be documented in a n alternate sectionGoals may be documented in an alternate sectionGoals may be documented in an alternate section FOR RECORDS PERTAINING TO PATIENTS [...] BE BASED ON THE PRIMARY CLINICAL RECORDS. [facility] [employer] [facility]. provides no warranty or guarantee of the accuracy or completeness of information in this document.
[2025-05-02] MEDS: Lactated Ringers 1,000 ML 15 ML IV (07:51)
--- NOTE | 2025-05-02 08:13 | PCM.HP.STD ---
HPI - General HPI Narrative RIYA JAMIL, is a 30 M who presents for left knee arthroscopy, anterior cruciate ligament reconstruction, quadriceps tendon autograft, repair of medial and lateral meniscus. No changes to history and physical exam. Left knee marked. Risks alternatives benefits discussed as well as postoperative instructions and narcotic counseling. Patient understands wished to proceed no further questions or concerns. MR#: [id number] Acct: [id number] Name: RIYA JAMIL Rep #: [id number] : 1995 Provider: Dr. Indra Mooney MD Age/Sex: 30/M Location: [facility] [place] Status: Signed Intake Vital Signs 01/29/2513:05 03/20/2509:27 Height 5 ft 9 in 5 ft 9 in Weight: 199 lb 8 oz BMI 29.5 Intake Visit Reasons: LEFT KNEE Chief Complaint: Left Knee Pain Is patient in pain?: Yes (Left knee) Pain scale (1-10): 1 Allergies No Known Allergies Allergy (Verified 03/22/25 09:15) Medications Medication Instructions Recorded Confirmed Type No Known/Unobtainable [No Known 05/16/14 03/22/25 History Home Medications] [facility] Medical History Sprain of lateral collateral ligament of left elbow Tear of lateral meniscus of left knee Tear of medial meniscus of left knee Left ACL tear Effusion, left knee Social History Smoking Status: Never smoker alcohol intake: never HPI LEFT KNEE Details: This documentation accurately reflects the service provided and the decisions made by me, Dr. Indra Mooney MD 03/22/25 0804. Part of today’s visit was documented by [ ], acting as scribe. RIYA JAMIL is a 30 year old M here today for FU L knee MRI. Supplemental Info [facility] Imaging Services [address] [place] [id number] Lower Ext Joint Only (Routine) MR#: [id number] Acct: [id number] Name: RIYA JAMIL Rep #: [id number] : 1995 M 30 From: Thor Arana DO PCP: Care Physician,No Primary Status: REG CLI Study: Lower Ext Joint Only (Routine) Date of Exam: 03/17/25 Exam# [id number] Ordering Dr: Indra Mooney MD PROCEDURE: Left LOWER EXT JOINT ONLY (ROUTINE) 03/17/2025 REASON FOR EXAM: PAIN, TWIST, EVAL ACL TEAR VS MENISCUS. Initial encounter. TECHNIQUE: MRI of the left lower Extremity. Multiplanar and multisequence images were obtained without IV contrast administration. COMPARISON: COMPARISON : None. FINDINGS: Bone Marrow: Unremarkable Effusion: Joint effusion there is [id number]-vy-[id number] Soft Tissues: Unremarkable Ligaments and Tendons: ACL tear is present. PCL is intact. There is tear of the body of the lateral meniscus and posterior horn with a fragment flipped anterior and medial Tiny corner fracture of the posterior body of the medial meniscus is suspected. See sagittal T2 fat-sat sequence, images 5-8 Lateral collateral ligament demonstrates hyperintensity in the anterior aspect suggesting a tear of the lateral collateral ligament. Mild hyperintense/isointense signal is seen adjacent to the lateral collateral ligament complex. MRI/Lower Ext Joint Only (Routine) IMPRESSION: ACL tear, high-grade. Tear of the lateral meniscus with flipped torn fragment Lateral collateral ligament tear. Small corner tear of the superior margin of the posterior horn of the medial meniscus. Reading [facility] Coding Level of Care Code Off vis,est,level 4 Diagnoses Left ACL tear S83.512A Tear of medial meniscus of left knee S83.242A Tear of lateral meniscus of left knee S83.282A Sprain of lateral collateral ligament of left elbow S53.432A Assessment and Plan Assessment and Plan (1) Left ACL tear: Status: Acute Plan: 30-year-old man with left knee ACL tear and tears of the medial meniscus and lateral meniscus with a flipped bucket-handle fragment. Overall I recommend surgery for this. Without surgery more higher chance of damage to the cartilage further tears of the meniscus long-term instability of the knee and other problems. That being said surgery has its own set of risks. Went over the diagnosis prognosis different graft types fixation methods and recovery up to 9 months before going back to full sport activities or other dangerous activities. Crutches and a brace for the first 6 weeks with the weightbearing in full extension due to the meniscus repairs. He understands no further questions and wishes to go ahead with left knee arthroscopy, anterior cruciate ligament reconstruction, quadriceps tendon autograft, repair of medial and lateral meniscus. Pros and cons risks and benefits were discussed with the patient including but not limited to infection, pain, stiffness, bleeding, damage to surrounding structures, neurovascular injury, recurrence or retear, failure or wear of hardware or fixation, instability, fracture, deep vein thrombosis and pulmonary embolism, anesthetic risks, , patient dissatisfaction, need for further surgery and other risks. Patient understood and wished to proceed with surgery, and signed the informed consent documentation. (2) Tear of medial meniscus of left knee: Status: Acute (3) Tear of lateral meniscus of left knee: Status: Acute (4) Sprain of lateral collateral ligament of left elbow: Status: Acute Ortho Exam General General: Yes no acute distress Neurologic: Yes alert and Yes oriented x3 Psychologic: Yes reasonable and appropriate Right Knee Patella Translation: 2 Left Knee Skin/Wound: Yes CDI, No ecchymosis, No erythema and Yes swelling 1+: Effusion Examination: Yes med jt line tenderness, No Lat jt line tenderness, No TTP inf pole patella, No Crepitus, Yes Pain with flexion, Yes Geovanna's Test, No TTP Patellar tendon, No TTP Tibial tubercle, No TTP Pes Anserine and No Illiotibial band tenderness Quad Atrophy: No Stability: NML: Posterior Drawer, NML: Valgus 0, NML: Valgus 30, NML: Varus 0 and NML: Varus 30 and 1+: Anterior Drawer and 1+: Epi Apprehension with Lateral Translation: No Patella Translation: 2 Patellar Tilt Normal: Yes Patella Grind: No KNEE: antalgic gait, NVI, normal alignmentm rom 10-125. able to SLR. no gaps at quad or patellar tendon [facility] Medical History (Updated 03/28/25 @ 13:13 by Amrita Wyman) Wears glasses Wears contact lenses History of IBS Heartburn Non-smoker History of pain when walking Sprain of lateral collateral ligament of left elbow Tear of lateral meniscus of left knee Tear of medial meniscus of left knee Left ACL tear Effusion, left knee Home Medications Medication Instructions Recorded Last Taken Type No Known/Unobtainable [No Known 05/16/14 Unknown History Home Medications] Allergy/AdvReac Type Severity Reaction Status Date / Time No Known Allergies Allergy Verified 05/02/25 07:39 Surgical History (Updated 03/28/25 @ 13:13 by Amrita Wyman) Hx of endoscopy Hx of wisdom tooth extraction Social History Smoking Status: Never smoker alcohol intake: never Vital Signs Vital Signs Vital Signs: 05/02/25 07:40 05/02/25 07:40 Temperature 98.7 F Temperature Source Temporal Pulse Rate 91 Respiratory Rate 12 Respiratory Pattern Normal Blood Pressure 123/72 H Blood Pressure Mean 89 Blood Pressure Source Monitor Blood Pressure Position Semi-Fowlers Blood Pressure Location Left Arm Pulse Ox 100 Oxygen Delivery Method Room Air Weight Weight: 191 lb 12.835 oz Body Mass Index (BMI) 28.3
--- NOTE | 2025-05-02 08:30 | PRE.ANES_ITS ---
ASA Classification* ASA Classification ASA Classification: 1 Assessment & Plan Anesthesia* Anesthesia Assessment Anesthesia Assessment: Discussed sedation and/or anesthesia options, risks, benefits, and alternatives with patient/parents/legal guardian/POA. Questions invited. The patient/parents/legal guardian/POA seems to understand and agrees to proceed with anesthesia plan. Reviewed the physical assessment, medical history, allergy history and patient home medications list prior to surgery/procedure/anesthetic and documented any changes. Performed airway and anesthesia risk assessments. Anesthesia Type Anesthesia Type: General and Block (Patient presented for postop pain block.) History Source History Obtained from:: Patient and Chart Anesthesia Focused Assessment* Temperature: 98.7 F Pulse Rate: 91 Blood Pressure: 123/72 Respiratory Rate: 12 Pulse Ox: 100 Oxygen Delivery Method: Room Air Airway Assessment Mouth opens: >3 cm Mallampati Score: III Teeth Condition: Intact Neck Range of motion (ROM): Full ROM Labs Anesthesia Preop lab: CBC CHEMISTRY COAG Pre-Assessment Diagnosis/Proposed Procedure Planned Operative Procedure(s): LEFT KNEE ARTHROSCOPY ACL REPAIR,QUAD TENDON AUTOGRAFT,REPAIR OF MEDIAL AND LATERAL MENISCUS Anesthesia History 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 When Was Last Pacemaker Check QUESTION #4 FULL TEXT: You/Your Family Experience fever (hyperthermia) with Anesthesia Last Oral Intake Last Oral intake: Last Oral Intake NPO since 23:00 05/02/25 07:40 Meds taken in AM with sips of water? Meds patient instructed to take am of surgery PONV PONV - business mail entry clerk: PONV - business mail entry clerk Female No 03/28/25 13:07 HX of Motion Sickness Yes 03/28/25 13:07 HX of N/V After Surgery No 03/28/25 13:07 Non-Smoker Yes 03/28/25 13:07 Duration of Surgery greater Yes 03/28/25 13:07 than 60 minutes Number of Risk Factors 3 03/28/25 13:07 PONV Score Moderate Risk 03/28/25 13:07 Height & Weight Height & Weight: Anesthesia: Height & Weight Height 5 ft 9 in 05/02/25 07:40 Weight: 87 kg 05/02/25 07:40 Body Mass Index (BMI) 28.3 05/02/25 07:40 Respiratory Assessment Respiratory Assessment - business mail entry clerk: Respiratory Tract Infection Hx - business mail entry clerk Hx Respiratory Tract Infection No 03/28/25 13:07 STOP Sleep Apnea STOP Sleep Apnea - business mail entry clerk: STOP Sleep Apnea - business mail entry clerk Hx Hypertension No 03/28/25 13:07 Hx Sleep Apnea No 03/28/25 13:07 CPAP BIPAP Do you snore loudly (louder No 03/28/25 13:07 than talking or can be heard Do you often feel tired/ No 03/28/25 13:07 fatigued/ sleepy during daytime? Has anyone observed you stop No 03/28/25 13:07 breathing during sleep? STOP Results Negative 03/28/25 13:07 QUESTION #5 FULL TEXT : Do you snore loudly (louder than talking or can be heard through closed doors)? Tobacco Use History Tobacco Use History - business mail entry clerk: Tobacco Use History - business mail entry clerk Tobacco Use Smoking Status Never smoker 03/28/25 13:07 Hx Tobacco Use No 03/28/25 13:07 Years Smoking Packs Smoked per Day Smoking Cessation Date was within the last 15 years Hx Smoking Cessation Date Hx Smoking Cessation Counseling Hematologic Medial History Hematologic Hx - business mail entry clerk: Hematologic Medical Hx - staging technician Hx of Blood Transfusion No 03/28/25 13:07 Hx of Transfusion in last 3 No 03/28/25 13:07 Months Date of Last Transfusion (if within last 3 months) Ever experience any problems No 03/28/25 13:07 with transfusion(s)? Specify any problems Hx of Preganancy in last 3 N/A 03/28/25 13:07 Months Nurse Filling Out Transfusion DSCHRIBER 03/28/25 13:07 & Questions: Date: 03/28/25 03/28/25 13:07 Time: 13:09 03/28/25 13:07 Patient unable to answer at this time (ie. confused, unrespo /Reproduction History /Reproductive History - business mail entry clerk: /Reproductive Hx- business mail entry clerk Hx Now No 03/28/25 13:07 Gestational Age (in weeks): EDC: Hx Hx Para Hx Section SAB No 03/28/25 13:07 Active Medications Active Medications: Current Medications Generic Name Dose Route Start Last Admin Trade Name Freq PRN Reason Stop Dose Admin Cefazolin Sodium 2 gm/ Sodium 110 mls @ 200 mls/hr 05/02/25 08:50 Chloride IV 05/02/25 09:22 INTRAOP ONE Lactated Ringer's 1,000 mls @ 15 mls/hr 05/02/25 07:30 05/02/25 07:51 IV 15 mls/hr .Q48H MOUNA Administration PFSH Medical History Wears glasses Wears contact lenses History of IBS Heartburn Non-smoker History of pain when walking Sprain of lateral collateral ligament of left elbow Tear of lateral meniscus of left knee Tear of medial meniscus of left knee Left ACL tear Effusion, left knee Home Medications Medication Instructions Recorded Last Taken Type No Known/Unobtainable [No Known 4 Unknown History Home Medications] Allergy/AdvReac Type Severity Reaction Status Date / Time No Known Allergies Allergy Verified 05/02/25 07:39 Surgical History Hx of endoscopy Hx of wisdom tooth extraction Social History Smoking Status: Never smoker alcohol intake: never Review of Systems (Anesthesia) ROS Narrative System reviewed and no additional complaints, except as documented.
[2025-05-02] MEDS: Epinephrine (1 mg/ml) 1 MG/ML VIAL (09:39)
--- NOTE | 2025-05-02 11:01 | OP.PCM_ITS ---
Problems Associated Problem List Diagnoses (1) Tear of lateral meniscus of left knee: (2) Tear of medial meniscus of left knee: (3) Left ACL tear: Operative Report (Standard) Operative Information Date of Procedure: 05/02/25 Pre-Operative Diagnosis: Left knee ACL tear and medial and lateral meniscus tears Post-Operative Diagnosis: Same Surgery/Procedure Performed: Left knee arthroscopy medial meniscus repair lateral meniscus repair quadriceps tendon autograft ACL reconstruction with internal brace director of market analysis: Yes Software Developer Manager: ayde Tasks completed by assistant passenger locomotive engineer: Retracting Type of Anesthesia: Block,Regional and General RN Documented Start/Stop Times: Operation Date: 05/02/25 08:50 Case Time Into Pre-Op 05/02/25 07:20 Anesthesia Start 05/02/25 09:07 Into Room 05/02/25 09:07 Procedure Start 05/02/25 09:21 Procedure End 05/02/25 10:59 Procedure Start Time: 09:21 Procedure Stop Time: 10:59 Select all DRAINS/GRAFTS/IMPLANTS that apply: Implanted device Implanted device details: see report Estimated Blood Loss: 50 Specimen collected: No Surgical Findings: As above
--- NOTE | 2025-05-02 11:01 | PCM.OPRPT ---
Problems Associated Problem List Diagnoses (1) Tear of lateral meniscus of left knee: (2) Tear of medial meniscus of left knee: (3) Left ACL tear: Procedures Musculoskeletal [id number]: Other Procedure See Report Operative Report (Standard) Operative Information Date of Procedure: 05/02/25 Pre-Operative Diagnosis: Left knee ACL tear and medial and lateral meniscus tears Post-Operative Diagnosis: Same Surgery/Procedure Performed: Left knee arthroscopy medial meniscus repair lateral meniscus repair quadriceps tendon autograft ACL reconstruction with internal brace special education para professional: Yes Computer Mechanic: ayde Tasks completed by first aid attendant: Retracting Type of Anesthesia: Block,Regional and General RN Documented Start/Stop Times: Operation Date: 05/02/25 08:50 Case Time Into Pre-Op 05/02/25 07:20 Anesthesia Start 05/02/25 09:07 Into Room 05/02/25 09:07 Procedure Start 05/02/25 09:21 Procedure End 05/02/25 10:59 Procedure Start Time: 09:21 Procedure Stop Time: 10:59 Select all DRAINS/GRAFTS/IMPLANTS that apply: Implanted device Implanted device details: see report Estimated Blood Loss: 50 Specimen collected: No Description of surgery: Patient brought to the operating room theater. Placed supine on the table. General anesthesia induced. 2 g of IV Ancef administered prior to start of procedure. All bony prominences padded SCD on the nonoperative leg. Stress positioner to the patient's left side. Lower extremity prepped and draped in the usual sterile fashion allowing over 3 minutes drying time prior to draping. Preoperative timeout performed to confirm the site patient and the surgery. Leg elevated tourniquet inflated to 250 mmHg. Use standard anterolateral and anteromedial arthroscopy portals. Did a full diagnostic arthroscopy. The patellofemoral joint appeared normal and stable, and normal cartilage in medial and lateral compartments. Gutters entered no loose bodies. ACL torn in mid aspect, debrided the remnant. PCL fine. Lateral meniscus had a displaced bucket-handle tear into the notch. I reduced this size the tear. It was from the posterior horn to the mid aspect of the body. I reduced this. I used a rasp to stimulate healing of the capsular side. I reduced the meniscus to the capsule. I used 2 horizontal mattress sutures the Arthrex all inside 1.5 mm fiber stitch anchors. Secured these down as well as 2 vertical mattress sutures at the mid body aspect of the tear. Probed this stable and solid repair. Roots not involved. Medial meniscus was examined. There was a vertically orientated tear near the posterior horn where the body meets the horn. This was about 1.5 cm. I used a rasp to stimulate healing in that area. I pie-crusted the proximal origin of the MCL to open up the medial compartment. I used Arthrex fiber stitch 1.5 mm implants to do 3 all inside vertical mattress sutures to repair the medial meniscus. Next I turned my attention to obtaining the ACL graft. I made a transverse incision at the distal aspect of the quadriceps tendon. Took this down through skin and subcutaneous tissue achievement meticulous hemostasis. I started the graft in the mid aspect of the quadriceps staying just lateral to the vastus medialis muscle belly. I took a partial thickness graft I used the Arthrex quadriceps pro harvester with a 9 mm diameter for graft length of 65mm, and this was truncated taken to the back table. I used the included fiber link suture to [id number] repair the quadriceps tendon then cut the suture short burried the knot. Graft was taken to the back table and ensured to be 65 mm long. Size 10 graft on both sides. Sutured in the usual fashion with adjustable arthrex button on the femoral side and ABS suture loop on the tibial side, with multiple locking sutures through the fibertag implant and burried the free end of the sutures. Came with internal brace attached. Graft was placed on tension and covered with a wet sponge. I then turned my attention back to the knee. I did retrograde drilling using third-generation techniques with the flip cutter instrument. Again on the femoral side 10mm retrograde drilled 3 cm long tunnel made sure that the good back wall and low and posterior at the [place] origin of the ACL. Then on the tibial side again retrograde drilled 3 cm long tunnel at 10 mm in diameter. Total tunnel length both sides measured at 3.5mm. This was just in line with the anterior horn lateral meniscus. I cleared away any bone dust. Through the tunnels passed sutures, placed a passport cannula through the medial portal. Graft was then passed up into the femoral tunnel with the button flipped graft shorten by 3 cm into the femoral tunnel then the suture was brought down through the tibial tunnel. Knee cycled 15 times ensured that the patient got back to full extension no impingement of the graft. I afixed the button to the tibia side sutures, and the sutures tensioned in full extension this removed the positive pivot shift and the Epi that was found pre-operatively, with a stable solid endpoint sutures then tied over top of the button on both sides and sutures cut short. I then took the internal brace sutures and then sure not to put overly tension on this and then inserted these into an Arthrex 4.75 mm swivel lock anchor that was included with the kit just distal to the button. Sutures cut short. Arthroscopy pictures taken and saved onto the case throughout the system. Case terminated tourniquet let down hemostasis achieved. Subcutaneous tissue closed with 2-0 Vicryl suture and skin with 3-0 Monocryl. Skin cleaned with wet dry dressing followed by patient Steri-Strips Adaptic 4 x 4 gauze ABD dressing Grabiel wrap and a hinged knee brace 0 to 90 degrees but locked in full extension. Patient woken up from general anesthetic transferred off the operating table take the postanesthetic care unit in stable condition. All sponge needle instrument counts were correct no complications. cpt 84109, 79273 Surgical Findings: As above Complications Complications: No Admit VTE Documentation VTE Present on Admission: No VTE Mechan Device Prophylaxis: SCD's VTE Pharm Prophylaxis ordered?: No Reason prophylaxis not ordered: Treatment Not Indicated
--- NOTE | 2025-05-02 11:11 | PCM.POST.ANE ---
Anesthesia: Postop Eval I Current Vital Signs Temperature: 96.8 F Pulse Rate: 118 Blood Pressure: 118/78 Respiratory Rate: 20 Pulse Ox: 99 Oxygen Delivery Method: Room Air Assessment Airway patent: Yes Spontaneous unlabored respirations: Yes Mental status: Awake nausea: No Vomiting: No Anesthesia Complication: No Fluid Hydration Crystalloid volume administer (ml): 1,200 Total IV fluid infused: 1,200 Progress Note Anesthesia document: Postop Eval 1 completed: Yes
--- NOTE | 2025-05-02 12:34 | DCINST_ITS ---
Discharge Instructions Diet Discharge Diet: No restrictions Activity Discharge Activity: Use Crutches Weight Bearing Status: Weight bearing as tolerated Lifting Restrictions: WBAT with knee straight and brace Keep extremity elevated above heart level: Operative Extremity Additional Activity Instructions:: OK for ROM 0-90 with PT starting 1-2 weeks post op Dressing / Incision Call your doctor if your incision/area has: Continuous Slow Oozing, Sudden Increased Bleeding, Increased Pain/ Swelling, Increased Redness, Foul Smelling Discharge and Swelling at the incision site Call your doctor if you observe: Fever of 101 or Higher, Coldness, Increased Pain and Numbness or Tingling Remove Dressing in: leave in place till F/U Cleanse incision/area with: Do not get Incision Wet Follow Up Care Please Follow Up With: Indra Mooney MD When: within 2 weeks Test Results: Test results from this visit will be discussed in further detail at your follow- up appointment, if applicable. Discharge Plan Admission Attending Provider: Indra Mooney Primary Care Provider: Care Physician,Jenna Primary Instructions Patient Instructions: ACL Injury Surg Print Language: Divehi Discharge Orders/Prescriptions Prescriptions: New oxycodone-acetaminophen [Endocet] 5-325 mg tablet 1 tab PO Q4H MDD 6 PRN (Reason: pain) 3 Days Qty: 20 0RF Referrals / Follow Up: Care Physician,No Primary [Primary Care Provider] - Indra Mooney MD [Med Staff - Active Staff] - Disposition Disposition (needs filled in before D/C Order can be placed): Home, Self Care
--- NOTE | 2025-05-02 19:11 | POSTOPAN2_ITS ---
Anesthesia Postop Eval I Sum Postop Eval Completion status Anesthesia document: Postop Eval 1 completed: Yes Anesthesia Postop Eval I Summary Anesthesia Postop Eval I Summary: Anesthesia Postop Eval I: Assessment Summary Airway patent Yes 05/02/25 11:11 DIRECTOR OF PUBLIC [email or web address] Spontaneous unlabored Yes 05/02/25 11:11 DIRECTOR OF PUBLIC WORKS.[email or web address] respirations Mental status Awake 05/02/25 11:11 DIRECTOR OF PUBLIC WORKS.[email or web address] nausea No 05/02/25 11:11 DIRECTOR OF PUBLIC WORKS.BRITTNI Vomiting No 05/02/25 11:11 DIRECTOR OF PUBLIC WORKS.[email or web address] Anesthesia Postop Eval I: Fluid Summary Crystalloid volume administer 1,200 05/02/25 11:11 DIRECTOR OF PUBLIC WORKS.BRITTNI (ml) Colloids volume administered ( ml) Blood Product volume administered (ml) Total IV fluid infused 1,200 05/02/25 11:11 DIRECTOR OF PUBLIC [email or web address].[email or web address] Anesthesia Postop Eval I: Summary Notes Anesthesia Complication No 05/02/25 11:11 DIRECTOR OF PUBLIC WORKS.BRITTNI Anesthesia Complication Comment: Post-operative progress note Anesthesia: Postop Eval II Evaluation Mental status: Awake Pain Level: 2 nausea: No Vomiting: No
--- NOTE | 2025-05-02 19:11 | PCM.POSTANE2 ---
Anesthesia Postop Eval I Sum Postop Eval Completion status Anesthesia document: Postop Eval 1 completed: Yes Anesthesia Postop Eval I Summary Anesthesia Postop Eval I Summary: Anesthesia Postop Eval I: Assessment Summary Airway patent Yes 05/02/25 11:11 [email or web address] Spontaneous unlabored Yes 05/02/25 11:11 [email or web address] respirations Mental status Awake 05/02/25 11:11 [email or web address] nausea No 05/02/25 11:11 [email or web address] Vomiting No 05/02/25 11:11 [email or web address] Anesthesia Postop Eval I: Fluid Summary Crystalloid volume administer 1,200 05/02/25 11:11 [email or web address] (ml) Colloids volume administered ( ml) Blood Product volume administered (ml) Total IV fluid infused 1,200 05/02/25 11:11 [email or web address] Anesthesia Postop Eval I: Summary Notes Anesthesia Complication No 05/02/25 11:11 [email or web address] Anesthesia Complication Comment: Post-operative progress note Anesthesia: Postop Eval II Evaluation Mental status: Awake Pain Level: 2 nausea: No Vomiting: No
== END 2025-05-02 13:40 | disposition home or self-care (01) ==
LOC: SDC 07:10 → AC 07:12
PROVIDERS: Referring Provider Orthopaedic Surgery Sports Medicine; Visit Provider Orthopaedic Surgery Sports Medicine
PROC: (CPT 29888; principal; 2025-05-02 08:30)
DX: S83.512A Sprain of anterior cruciate ligament of left knee, initial encounter (principal); S83.242A Other tear of medial meniscus, current injury, left knee, initial encounter; S83.282A Other tear of lateral meniscus, current injury, left knee, initial encounter; S53.432A Radial collateral ligament sprain of left elbow, initial encounter
CPT/HCPCS: 29888; 29883; 01400; C1713; J2405